=== PATIENT | female | born 1945 | race Caucasian/White ===

== ENCOUNTER 2023-03-23 18:38 | Emergency (ER) | payer MEDICARE, BC, SELFPAY ==
[2023-03-23 18:42] VITALS: BP 174/84
--- NOTE | 2023-03-23 22:33 | ED.GENMED ---
History of Present Illness
General
Chief Complaint: Musculo-Skeletal Complaint
Source: patient and previous hospital records (Most recent hospitalization December 2022 for treatment of viral URI)
Exam Limitations: none
Time Seen by Provider: 03/23/23 22:00
Nursing documentation reviewed up to this point in time: agreed with
Travel History
Have you had any contact with someone who has COVID-19?: No
Do you have any symptoms of coronavirus? Fever > 100 degrees, chills, cough, shortness of breath, sore throat, loss of taste or smell, muscle aches, or headache?: No
History of Present Illness
History of Present Illness:
This is a 77-year-old woman who resides at home with her . She has history of hypertension, rheumatoid arthritis, spina bifida, end-stage renal disease status post renal transplant, neurogenic bladder with chronic indwelling Murphy catheter,
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 She has prior history of left proximal femur fracture requiring left femur
Broad performed by Dr. Kwon 2016. She also has history of left total knee replacement 2009.
She follows sporadically with Dr. Amaral for chronic low back pain and receives intermittent epidural steroid injections with the last approximately August 2022.
She does note some chronic low back pain, chronic left hip pain, requires a walker to ambulate. She also notes Dr. Kwon has noted moderate DJD of left hip and has told her that she will eventually require left hip replacement.
This morning however she awoke with moderate pain about her left knee that has been persistent throughout the day. No insightful injury, no falls nor twisting injury.
Left knee pain radiates up her thigh to her left hip and she has also had twinges of pain down her left lower leg along with mild numbness of her left foot. She denies weakness, no abdominal pain, she denies increase in her chronic low back pain.
Her right lower extremity is chronically shorter than her left lower extremity.
She has been taking Tylenol for pain with last dose at 5 PM. She does note mild improvement in pain with Tylenol.
She had a recent dermatology appointment with squamous cell carcinoma removal right upper arm as well as punch biopsy left medial knee on March 19. Incision site and punch biopsy site has been healing uneventfully.
Past History
Past History
ED Past Medical History: HTN, Renal failure, Other (Osteoma rheumatoid arthritis), Other (Spina bifida) and Other (ESRD s/p renal transplant 1978, Neurogenic bladder, chronic urinary tract infections, pyelonephritis, proteinuria, osteoporosis,
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
ED Past Surgical History: Appendectomy, Bowel resection, Orthopedic (Left knee replacement, Sandeep left femur), Tonsilectomy and Other (Kidney transplant R kidney only)
Social History
Tobacco: Former smoker
Alcohol: Occasional
Drug: None
Personal:
Living: with family
Employment: Not employed
Family History
Family History: Other
Phy Exam
Physical Exam
Physical Exam:
GENERAL: 77-year-old woman appears her stated age, awake and alert, pleasant, appears in no acute distress. Afebrile.
EYE: anicteric
NECK: Supple, nontender, no meningismus, no significant adenopathy.
ENT: oral mucosa is moist. No rhinorrhea.
CARDIAC: Regular rate and rhythm. no murmur.
LUNGS: Clear breath sounds bilaterally, no acute respiratory distress, no wheezes/rales/rhonchi
ABDOMEN: Soft, nondistended, without focal tenderness, no r/g, no cvat. normoactive BS.
BACK: No midline bony tenderness.
NEUROLOGICAL: Alert and oriented x3, no focal neuro deficits. Motor strength is 5/5 bilaterally. Gross sensation is intact.
SKIN: Warm and dry, normal color, mildly candelaria skin of face and upper chest. Dry bandage overlying intact sutured wound right upper arm. There is no erythema nor tenderness. There is a 2 to 3 mm superficial punch biopsy site left medial knee that
has no surrounding erythema, no drainage, no bleeding.
MUSCULOSKELETAL: Right lower extremity shorter than left�chronic and unchanged as per patient. There is moderate palpable effusion anterior and superior of the left knee with moderate tenderness about the left knee. There is no erythema nor
palpable heat. Moderate pain with range of motion of left knee but no crepitus. Minimal tenderness about the left hip with mild/moderate pain with range of motion of the left hip. There is no palpable bony pelvic tenderness. There is mild
nonpitting edema bilateral lower extremities. Mild venous stasis skin thickening with mild chronic appearing erythema bilateral lower extremities without tenderness to the lower legs, no palpable heat. Peripheral pulses are full and equal b/l.
PSYCH: Normal and appropriate interaction.
Course
Orders/Labs/Results
Orders:
Orders
03/23/23 22:30
Acetaminophen [Tylenol] 1,000 mg PO NOW STA
Tramadol HCl [Ultram] 50 mg PO NOW STA
Hip, Left 2-3 Views [CR Hip - LT w/wo Pel 2-3 Vw*] Urgent
Comment:
Reason For Exam: acute on chronic L hip pain
Include a pelvis x-ray?: Yes
Knee, Left 4 or More Views [CR Knee - Left 4 Or More View*] Urgent
Comment:
Reason For Exam: acute L knee pain, swelling
03/23/23 22:31
US Periph Venous LOWER Ext LT Urgent
Comment:
Reason For Exam: LLE pain, swelling
03/24/23 00:03
Maury Wrap Left-Treatment ONCE
Vital Signs
Initial and Last Documented VS:
Initial Vital Signs
Temp Pulse Resp BP Pulse Ox
98.6 F 93 18 174/84 99
03/23/23 18:42 03/23/23 18:42 03/23/23 18:42 03/23/23 18:42 03/23/23 18:42
Last Documented Vital Signs
Temp Pulse Resp BP Pulse Ox
98.6 F 75 16 127/88 100
03/23/23 18:42 03/23/23 23:19 03/23/23 23:19 03/23/23 23:19 03/23/23 23:19
MDM/Problems Addressed
Differential Diagnosis Includes:
Patient has known lumbar DJD/spina bifida, known DJD of left hip as well as history of left femur fracture with sandeep placement 2016, history of left knee DJD status post left total knee replacement 2009.
She presents with atraumatic acute on chronic left hip pain as well as acute left knee pain.
Exam remarkable for moderate effusion left knee without clinical evidence/suspicion for infectious process. There is no erythema, she remains afebrile.
Concern for acute arthritic flare, acute on chronic musculoskeletal low back pain, acute on chronic musculoskeletal left hip pain, left lower extremity sciatica. Concern for flare of rheumatoid arthritis.
With history of chronic kidney disease, renal transplant, chronically maintained on immunosuppressants, prednisone�will avoid NSAIDs.
Will give a dose of Tylenol now and will trial a dose of tramadol for pain.
Will check x-ray left hip, left knee and due to moderate swelling of left knee will check ultrasound left lower extremity assess for potential DVT however no significant calf swelling and no prior history of thromboembolism.
*Radiology
Radiology exam reviewed: preliminary read by ED provider (Left hip and left knee x-rays show metallic fixation of prior left proximal femur shaft fracture as well as left total knee replacement. No evidence of periprosthetic fracture. No evidence
of hardware loosening.) and radiology read reviewed (Venous Doppler left lower extremity negative for DVT.)
*Pulse Oximetry
Patient hypoxic: no
*Critical Care Note
Total Time (30-74mins, 75-104mins- exclusive of procedures): Not Applicable
Update Note
Update Note:
Patient feeling improved after Tylenol and tramadol.
She is now able to flex her hip and knee more freely.
X-rays show metallic hardware but no evidence of periprosthetic fracture nor loosening of hardware.
Ultrasound is negative for DVT.
Will add Maury wrap to left knee and recommend ice versus heat to her knee.
Recommend prompt follow-up with orthopedics Dr. Kwon as well as follow-up with Dr. Amaral. Patient now does admit that she was hoping to hold off with follow-up with Dr. Amaral until June due to recent hospitalization in December, she was hoping
to avoid 'MRSA protocol' prior to epidural steroid injection which apparently entails nasal MRSA swab, mupirocin ointment to her nostrils as well as whole body antiseptic scrub which she states generally results in a skin rash.
I have offered a limited prescription for tramadol which she can take for moderate pain along with continued Tylenol.
ED Attending Note
-
Portions of this chart may have been created with voice recognition software.� Occasional wrong word or��sound alike� substitutions may have occurred due to the inherent limitations of voice recognition software.
Discharge Plan
Departure
Patient Disposition: Home (Routine Discharge)
Date of Disposition: 03/24/23
Time of Disposition: 00:15
Patient with high blood pressure during this ER visit?: No
Condition: Good
Discharge Problem:
acute on chronic left hip pain, Acute pain of left knee, Acute exacerbation of chronic low back pain
Instructions: Low Back Pain (DC), Knee Pain (DC)
Prescriptions:
New
tramadol 25 mg tablet
25 mg PO TIDPRN PRN (Reason: Pain) Qty: 14 0RF
No Action
prednisone 10 MG tablet
10 mg PO Q48H
azathioprine 50 MG tablet
50 mg PO DAILY
cyanocobalamin (vitamin B-12) 1,000 MCG tablet
500 mcg PO DAILY
lisinopril 5 MG tablet
5 mg PO HS
sennosides-docusate sodium [Colace 2-In-1] 8.6-50 mg Tablet
1 tab-cap PO Q72H
fluocinonide 0.05 % Ointment
1 applic TOPICAL BID
acetaminophen [Tylenol Extra Strength] 500 mg Tablet
1,000 mg PO Q6H PRN (Reason: mild pain/CRESPO/temp>100.4F)
methenamine hippurate 1 gram Tablet
1 g PO HS
bisacodyl 5 mg Tablet
10 mg PO Q72H
cholecalciferol (vitamin D3) 25 mcg (1,000 unit) Tablet
25 mcg PO DAILY
Referrals:
Carlos Kwon MD [Active] - Call in 1-3 days for appt
Mandeep Amaral DO [Non-Admitting Privileges] - Call in 1-3 days for appt
Interventions
Interventions:
*Risk Screen - Suicide Last Done: 03/23/23 18:42
*General Assessment Last Done: 03/23/23 18:42
*Neglect/Abuse Screening Last Done: 03/23/23 18:42
ED- Fall Risk Assessment Last Done: 03/23/23 23:27
*ED COVID-19 Vaccine History Last Done: 03/23/23 18:42
ED-Musculoskeletal Assessment Last Done: 03/23/23 23:27
[2023-03-23 23:12] VITALS: BMI 36.8
[2023-03-23] MEDS: TYLENOL 1000 MG PO (23:12)
[2023-03-23] MEDS: ULTRAM 50 MG PO (23:13)
[2023-03-23 23:17] VITALS: BP 127/88
[2023-03-23 23:19] VITALS: BP 127/88
[2023-03-24] VITALS: BP 137/59
--- NOTE | 2023-03-24 | EDRN ---
Dr Sevilla updated patient on results and aware she will go home
== END 2023-03-24 00:48 | disposition home or self-care (01) ==
LOC: EMR 18:38
PROVIDERS: EMERGENCY PHYSICIAN Emergency Medicine; FAMILY PHYSICIAN Internal Medicine
DX: M25.552 Pain in left hip (principal); M25.562 Pain in left knee; G89.29 Other chronic pain; M54.50 Low back pain, unspecified; M79.605 Pain in left leg; I12.0 Hypertensive chronic kidney disease with stage 5 chronic kidney disease or end stage renal disease; N18.6 End stage renal disease; Z87.891 Personal history of nicotine dependence; Z94.0 Kidney transplant status
CPT/HCPCS: 73502; 73564; 93971; 99284

== ENCOUNTER → 2023-06-04 11:16 | Outpatient (REF) | payer MEDICARE, BC, SELFPAY | LOC: WDC 11:16 | PROVIDERS: ATTENDING PHYSICIAN Internal Medicine | DX: Z12.31 Encounter for screening mammogram for malignant neoplasm of breast (principal); M81.0 Age-related osteoporosis without current pathological fracture; Z00.00 Encounter for general adult medical examination without abnormal findings | CPT/HCPCS: 77063; 77067; 77080 ==

== ENCOUNTER → 2023-09-09 09:28 | Outpatient (REF) | payer MEDICARE, BC, SELFPAY ==
[2023-09-09 10:55] LABS: % Basophils 0.7 % (0-2); % Eosinophils 1.8 % (0-6); % Immature Granulocytes 0.9 % (0-0.5); % Lymphocytes 21.7 % (20.5-51.1); % Monocytes 7.1 % (1.7-9.3); % Neutrophils 67.8 % (42.2-75.2); Absolute Basophils 0.1 10^3/uL (0-0.2); Absolute Eosinophils 0.2 10^3/uL (0-0.7); Absolute Immature Granulocytes 0.1 10^3/uL (0-0.05); Absolute Lymphocytes 1.9 10^3/uL (1.2-3.4); Absolute Monocytes 0.6 10^3/uL (0.1-0.6); Absolute Neutrophils 5.8 10^3/uL (1.4-6.5); Hematocrit 36.8 % (37.0-47.0); Hemoglobin 12.1 g/dL (12.0-16.0); Mean Corp Hgb Conc. 32.9 g/dL (33.0-37.0); Mean Corpuscular Hgb 32.9 pg (27.0-31.0); Mean Platelet Volume 11.4 fL (7.4-10.4); Nucleated Red Blood Cells % 0 %; Platelet Count 235 10^3/uL (130-400); Red Blood Cell Count 3.68 10^6/uL (4.20-5.40); Red Cell Dist. Width 13.7 % (11.5-14.5); White Blood Cell Count 8.5 10^3/uL (4.8-10.8)
[2023-09-09 11:12] LABS: Protein/creatinine Ratio 2.4; Urine Protein 109 mg/dl
[2023-09-09 11:13] LABS: Vitamin D, 25-OH*** 55.7 ng/mL (30-80)
[2023-09-09 11:14] LABS: Intact PTH 87.6 pg/ml (13.6-85.8)
[2023-09-09 11:27] LABS: TSH 1.76 uIU/ml (0.47-4.68)
[2023-09-09 11:49] LABS: ALT (SGPT) 15 U/L (0-35); Albumin 4.1 g/dl (3.5-5.0); Alkaline Phosphatase 71 U/L (38-126); Blood Urea Nitrogen 27 mg/dl (7-17); Carbon Dioxide 19 mmol/L (22-30); Glucose 91 mg/dl (70-99); Potassium 4.8 mmol/L (3.5-5.1); Sodium 139 mmol/L (135-145); Total Bilirubin 0.6 mg/dl (0.2-1.3); Total Cholesterol 194 mg/dl (50-199); Total Protein 6.5 g/dl (6.3-8.2); Triglyceride 83 mg/dl (10-149); Very Low Density Lipoprotein 16 mg/dl (0-30); eGFR 42.35
[2023-09-09 11:58] LABS: AST (SGOT) 22 U/L (14-36); Calcium 9.4 mg/dl (8.4-10.2); Chloride 109 mmol/L (98-107); HDL Cholesterol 68 mg/dl; LDL Cholesterol, Calculated 110 mg/dl
== END ==
LOC: REG 09:28
PROVIDERS: ATTENDING PHYSICIAN Specialist; FAMILY PHYSICIAN Internal Medicine
DX: Z00.00 Encounter for general adult medical examination without abnormal findings (principal); R80.1 Persistent proteinuria, unspecified; I10 Essential (primary) hypertension; R80.9 Proteinuria, unspecified; N25.81 Secondary hyperparathyroidism of renal origin
CPT/HCPCS: 36415; 80053; 80061; 82306; 82570; 83521; 83970; 84156; 84443; 85025; 86335

== ENCOUNTER → 2023-10-07 08:58 | Outpatient (REF) | payer MEDICARE, BC, SELFPAY ==
[2023-10-09 22:09] LABS: 24 Hour Urine Total Volume Random mL; Urine Collection Length Random hr; Urine Free Kappa Light Chains 281.97 mg/L (0.00-32.90); Urine Free Lambda Light Chains 11.98 mg/L (0.00-3.79)
== END ==
LOC: REG 08:58
PROVIDERS: ATTENDING PHYSICIAN Specialist; FAMILY PHYSICIAN Internal Medicine
DX: R33.8 Other retention of urine (principal); Z94.0 Kidney transplant status; N39.0 Urinary tract infection, site not specified; I10 Essential (primary) hypertension
CPT/HCPCS: 36415; 82784; 83521; 84155; 84156; 84165; 86334; 86335

== ENCOUNTER 2024-01-08 21:58 | Inpatient (IN) | payer MEDICARE, BC, SELFPAY ==
[2024-01-08 18:46] VITALS: BP 138/68
[2024-01-08 19:49] LABS: % Basophils 0.4 % (0-2); % Immature Granulocytes 1.2 % (0-0.5); % Lymphocytes 4.3 % (20.5-51.1); % Monocytes 3.2 % (1.7-9.3); % Neutrophils 90.9 % (42.2-75.2); Absolute Immature Granulocytes 0.1 10^3/uL (0-0.05); Absolute Lymphocytes 0.3 10^3/uL (1.2-3.4); Absolute Monocytes 0.2 10^3/uL (0.1-0.6); Absolute Neutrophils 6.8 10^3/uL (1.4-6.5); Mean Corp Hgb Conc. 33.3 g/dL (33.0-37.0); Mean Corpuscular Hgb 32.7 pg (27.0-31.0); Mean Corpuscular Volume 98.1 fL (81.0-99.0); Mean Platelet Volume 10.3 fL (7.4-10.4); Nucleated Red Blood Cells % 0 %; Platelet Count 236 10^3/uL (130-400); Red Blood Cell Count 3.67 10^6/uL (4.20-5.40); Red Cell Dist. Width 13.9 % (11.5-14.5); White Blood Cell Count 7.5 10^3/uL (4.8-10.8)
[2024-01-08 20:02] LABS: ALT (SGPT) 21 U/L (0-35); AST (SGOT) 29 U/L (14-36); Albumin 4.1 g/dl (3.5-5.0); Alkaline Phosphatase 64 U/L (38-126); Blood Urea Nitrogen 31 mg/dl (7-17); Calcium 8.4 mg/dl (8.4-10.2); Carbon Dioxide 18 mmol/L (22-30); Chloride 102 mmol/L (98-107); Glucose 160 mg/dl (70-99); Lactic Acid 1.1 mmol/L (0.7-2.0); Potassium 4.6 mmol/L (3.5-5.1); Sodium 136 mmol/L (135-145); Total Bilirubin 0.8 mg/dl (0.2-1.3); Total Protein 6.6 g/dl (6.3-8.2); eGFR 35.67
[2024-01-08 20:10] LABS: Urine Albumin Trace (Neg - Trace); Urine Bilirubin Negative (Negative); Urine Character Slightly Cloudy (Clear); Urine Color Yellow; Urine Glucose Negative (Negative); Urine Ketone Negative (Negative); Urine Leukocyte 2+ (Negative); Urine Nitrite Positive (Negative); Urine Occult Blood 1+ (Negative); Urine Specific Gravity 1.005 (<1.030); Urine Urobilinogen Negative (Neg - 1+)
[2024-01-08 20:12] LABS: Urine Bacteria Moderate (Negative); Urine Red Blood Cell 0-2 /HPF (0-2); Urine Squamous Cell 0-2 /LPF (Few); Urine White Cell >100 /HPF (0-5)
--- NOTE | 2024-01-08 20:39 | ED.GENMED ---
History of Present Illness
General
Chief Complaint: Urinary Symptoms
Source: patient
Time Seen by Provider: 01/08/24 19:01
History of Present Illness
History of Present Illness:
78-year-old female with past medical history of spina bifida at resulting in complications from her surgery with left her with a neurogenic bladder, has a chronic indwelling Murphy catheter and states that she gets this changed every 5 weeks,
last changed 2 weeks ago but over the last 48 hours has started to feel some suprapubic discomfort/pressure and as if she needs to continuously urinate, last night had tactile fever, chills and rigors, this afternoon developed the same which is what
prompted her to come to the ER this evening for further evaluate. Last dose of Tylenol was around 1 PM. Patient has a history of kidney transplant and states that she has had multidrug-resistant urinary tract infections in the past that have
required IV antibiotics for treatment. Also of note, patient states that for the last few days she has had a nonproductive cough and discomfort at the lower scapular region but states no shortness of breath, chest pain so or any other concerns.
Past History
Past History
ED Past Medical History: CAD, HTN, Renal failure, Other (Osteoma rheumatoid arthritis), Other (Spina bifida) and Other (ESRD s/p renal transplant 1979, Neurogenic bladder, chronic urinary tract infections, pyelonephritis, proteinuria, osteoporosis,
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
ED Past Surgical History: Appendectomy, Bowel resection, Orthopedic (Left knee replacement, Sandeep left femur), Tonsilectomy and Other (Kidney transplant R kidney only)
Social History
Tobacco: Former smoker
Alcohol: Occasional
Drug: None
Personal:
Living: with family
Employment: Not employed
Family History
Family History: Other
Review of Systems
Review of Systems
All Other Systems: ROS reviewed and negative except as documented in HPI and ROS
Phy Exam
Physical Exam
Physical Exam:
GENERAL: Alert , in no apparent distress
HEAD: NCAT
EYE: conjunctiva clear
NECK: Supple
ENT: o/p clr, mmm.
CARDIAC: Regular rate and rhythm
LUNGS: Clear breath sounds bilaterally, no acute respiratory distress, no wheezes/rales/rhonchi
ABDOMEN: soft, non-tender, non-distended
NEUROLOGICAL: Alert and oriented
SKIN: Warm and dry, skin intact.
MUSCULOSKELETAL: well perfused. arthritic changes to bilateral hands
PSYCH: Normal and appropriate interaction.
Scores
Heart Failure Risk
Heart Failure Risk Score: Not Applicable
Heart Score for Chest Pain Patients
STEMI patient?: Not applicable
Withdrawal Assessment of Alcohol
Withdrawal Assessment Completed?: Not applicable
Course
Orders/Labs/Results
Orders:
Orders
01/08/24 19:26
Complete Blood Count/With Diff Urgent
Comprehensive Metabolic Panel Urgent
Lactic Acid Q4H
Comment: CANCEL 2nd LACTIC ACID IF 1st LACTIC ACID IS LESS THAN 2
Blood Culture Q30M
[facility] Source: Blood/Venous
Specimen Description:
Blood Culture Q30M
[facility] Source: Blood/Venous
Specimen Description:
01/08/24 19:43
Urinalysis Reflex To Culture Urgent
Date Specimen was Collected: 01/08/24
Time Specimen was Collected: 19:41
Urine Microscopic Reflex Cult Urgent
Urine Culture Urgent
[facility] Source: U
Specimen Description:
Date Specimen was Collected: 01/08/24
Time Specimen was Collected: 19:41
01/08/24 20:06
COVID-19 Antigen Urgent
Source: Nasal Swab
Influenza A+B Rapid Molecular Urgent
[facility] Source: Nasal Swab
Specimen Description:
CR Chest - 2 Views Urgent
Comment:
Reason For Exam: cough, subjective fever
01/08/24 20:38
Cefepime HCl [Maxipime] 2,000 mg IV NOW STA
Abnormal Lab Results
01/08/24 01/08/24
19:26 19:43
RBC 3.67 L 10^6/uL
(4.20-5.40)
Hct 36.0 L %
(37.0-47.0)
MCH 32.7 H pg
(27.0-31.0)
Abs Immat Gran (auto) 0.1 H 10^3/uL
(0-0.05)
Absolute Neuts (auto) 6.8 H 10^3/uL
(1.4-6.5)
Absolute Lymphs (auto) 0.3 L 10^3/uL
(1.2-3.4)
Immature Gran % 1.2 H %
(0-0.5)
Neutrophils % 90.9 H %
(42.2-75.2)
Lymphocytes % 4.3 L %
(20.5-51.1)
Carbon Dioxide 18 L mmol/L
(22-30)
BUN 31 H mg/dl
(7-17)
Creatinine 1.5 H mg/dL
(0.6-1.0)
Glucose 160 H mg/dl
(70-99)
Ur Occult Blood Reflex 1+ A
(Negative)
Urine Nitrite (Reflex) Positive A
(Negative)
Leukocyte Esterase Rfl 2+ A
(Negative)
Urine WBC (Reflex) >100 A /HPF
(0-5)
Urine Bacteria (Reflex) Moderate A
(Negative)
01/08/24 19:26
01/08/24 19:26
Vital Signs
Initial and Last Documented VS:
Initial Vital Signs
Temp Pulse Resp BP Pulse Ox
98.2 F 89 16 138/68 96
01/08/24 18:46 01/08/24 18:46 01/08/24 18:46 01/08/24 18:46 01/08/24 18:46
Last Documented Vital Signs
Temp Pulse Resp BP Pulse Ox
98.2 F 89 16 138/68 96
01/08/24 18:46 01/08/24 18:46 01/08/24 18:46 01/08/24 18:46 01/08/24 18:46
MDM/Problems Addressed
Differential Diagnosis Includes:
Pneumonia, UTI, pyelonephritis, COVID/flu or other viral etiology
MDM/Problems Addressed:
78-year-old female presenting the emergency department with main concern for possible urinary tract infection. Has had multiple drug-resistant UTIs in the past requiring admission and IV antibiotics. Patient is also noting cough over the last few
days. Will check labs, urine, chest x-ray, COVID and flu testing. Disposition pending
Chronic conditions affecting care: Immunosuppressed and Kidney disease
Acute Exacerbation and/or Progression of Chronic Illness: Immunosuppressed
*Radiology
Radiology exam reviewed: radiology read reviewed
*Pulse Oximetry
Patient hypoxic: no
*Rn Maternity Interpretation
Rate: normal
Rhythm: sinus
*Critical Care Note
Total Time (30-74mins, 75-104mins- exclusive of procedures): Not Applicable
Data Reviewed
Review of Other/Old Records Reveals: Labs and Records
Patient Management
Discussion with other providers: Hospitalist and [facility]
Escalation/DeEscalation of care consider admission/obs:
Patient's chest x-ray read as left midlung pneumonia. Urine is nitrite positive and greater than 100 WBCs. Certainly possible patient colonizing due to chronic indwelling Murphy catheter but given her history will cover with Maxipime based off of
previous culture reports. Hospitalist team notified and accepts for continued evaluation and treatment. Urology team was also notified and can consult as needed.
ED Attending Note
-
Portions of this chart may have been created with voice recognition software.� Occasional wrong word or��sound alike� substitutions may have occurred due to the inherent limitations of voice recognition software.
Discharge Plan
Departure
Patient Disposition: Admit
Date of Disposition: 01/08/24
Time of Disposition: 20:39
Presentation/result/management discussed w/ accepting MD/DO: Hospitalist
Discharge Problem:
UTI (urinary tract infection), CKD (chronic kidney disease)
Prescriptions:
No Action
prednisone 10 MG tablet
10 mg PO Q48H
azathioprine 50 MG tablet
50 mg PO DAILY
cyanocobalamin (vitamin B-12) 1,000 MCG tablet
500 mcg PO DAILY
lisinopril 5 MG tablet
5 mg PO HS
sennosides-docusate sodium [Colace 2-In-1] 8.6-50 mg Tablet
1 tab-cap PO Q72H
acetaminophen [Tylenol Extra Strength] 500 mg Tablet
1,000 mg PO Q6HPRN PRN (Reason: mild pain/CRESPO/temp>100.4F)
methenamine hippurate 1 gram Tablet
1 g PO HS
bisacodyl 5 mg Tablet
10 mg PO Q72H
cholecalciferol (vitamin D3) 25 mcg (1,000 unit) Tablet
25 mcg PO DAILY
Ocusoft
1 spray BOTH EYES BID
Referrals:
Denisse Salmon MD [Family Provider] -
Interventions
Interventions:
*Risk Screen - Suicide Last Done: 01/08/24 18:46
*Neglect/Abuse Screening Last Done: 01/08/24 18:46
Discharge Date and Time
Print Language: CYMRAES
--- NOTE | 2024-01-08 20:45 | HPS.HSE ---
Family Physician
-
Family Physician: Denisse Salmon
Chief Complaint
-
Urinary symptoms
History of Present Illness
Patient is a 78-year-old female with past medical history significant for neurogenic bladder, chronic kidney disease, kidney transplant, benign hypertension, rheumatoid arthritis, and spina bifida. Patient presented to [facility] for evaluation
of fever, rigors and bladder fullness feeling over past 24-hours. Patient states she has aching in the right flank area, which is typical when she has a UTI. Patient states she is having sensation she needs to urinate despite chronic Grady in place
and draining like normal. She denies cough, shortness of breath, chest pain, constipation, or diarrhea.
Medical History
Past Medical History
Past Medical History: Reports Other
Additional Past Medical History:
neurogenic bladder
chronic kidney disease
kidney transplant
benign hypertension
rheumatoid arthritis
Recurrent squamous cell skin cancer
Spina bifida
Past Surgical History: Reports Other
Additional Past Surgical History:
Living related renal transplant right only(1978)
parathyroidectomy
tonsillectomy
appendectomy
spinal surgery
Multiple mohs procedures
Social History
Tobacco: Former Smoker (quit 20 years ago)
Alcohol: Occasional
Drug: None
Personal:
Living: With Family
Employment: Retired
Family History
Family History: Not pertinent
Allergies / Home Medications
Allergies reflects when Allergies were last updated in [facility].
Home Medications with original date entered in [facility]
Allergy/Medication List:
Allergies
Allergy/AdvReac Type Severity Reaction Status Date / Time
alendronate sodium Allergy constipatio Verified 03/23/23 18:44
[From Fosamax] n
aspirin [Aspirin] Allergy contraindicated Verified 03/23/23 18:44
with
transplant
meds
azithromycin [From Zithromax] Allergy contraindicated Verified 03/23/23 18:44
with
transplant
meds
aztreonam [From Azactam] Allergy Swelling/RE Verified 03/23/23 18:44
DNESS/FLUSH
ING
doxycycline Allergy Hives Verified 03/23/23 18:44
influenza virus vaccine, Allergy high Verified 03/23/23 18:44
specific fever,ache
[Influenza Virus all over
Vacc,Specific] pt states
doesnt
want it
again
levofloxacin [From Levaquin] Allergy Vomiting Verified 03/23/23 18:44
NSAIDS (Non-Steroidal Allergy contraindicated Verified 03/23/23 18:44
Anti-Inflamma with
[Nsaids] transplant
meds
Penicillins Allergy has Verified 03/23/23 18:44
tolerated
cefepime,
ceftriaxone,
cephalexin
tetracycline [Tetracycline] Allergy contraindicated Verified 03/23/23 18:44
with
transplant
meds
Home Medications
prednisone 10 mg tablet 10 mg PO Q48H Transplant 08/23/12
azathioprine 50 mg tablet 50 mg PO DAILY rheumatoid arthritis 12/28/12
cyanocobalamin (vitamin B-12) 1,000 mcg tablet 500 mcg PO DAILY Supplement 07/07/17
lisinopril 5 mg tablet 5 mg PO HS Blood pressure 07/07/17
acetaminophen 500 mg tablet (Tylenol Extra Strength) 1,000 mg PO Q6H PRN mild pain/CRESPO/temp>100.4F 01/10/23
bisacodyl 5 mg tablet 10 mg PO Q72H 01/10/23
cholecalciferol (vitamin D3) 25 mcg (1,000 unit) tablet 25 mcg PO DAILY 01/10/23
fluocinonide 0.05 % topical ointment 1 applic topical BID apply to right hand surgical sites 01/10/23
methenamine hippurate 1 gram tablet 1 g PO HS 01/10/23
sennosides 8.6 mg-docusate sodium 50 mg tablet (Colace 2-In-1) 1 tab-cap PO Q72H 01/10/23
tramadol 25 mg tablet 25 mg PO TIDPRN PRN Pain #14 tabs 03/24/23
Review of Systems
-
History Source: Patient
Constitutional: Reports Fever and Chills
EENT: Reports No Symptoms
Respiratory: Reports No Symptoms
Cardiac: Reports No Symptoms
Abdomen/GI: Reports No Symptoms
: Reports Flank Pain, Urgency and Other (discomfort at transplant pouch and sensation of needing to urinate despite Grady in place and draining)
Musculoskeletal: Reports No Symptoms
Skin: Reports No Symptoms
Neurological: Reports No Symptoms
Endocrine: Reports No Symptoms
Hematologic/Lymphatic: Reports No Symptoms
Psych: Reports No Symptoms
Physical Exam
Vital Signs
Vital Signs
Temp Pulse Resp BP Pulse Ox
98.2 F 89 16 138/68 96
01/08/24 18:46 01/08/24 18:46 01/08/24 18:46 01/08/24 18:46 01/08/24 18:46
Physical Exam
General: Well Developed, Well Nourished, No Apparent Distress, Comfortable and Conversant
HEENT: NormoCephalic, Moist mucous membranes, Atraumatic, Good Dentition, PERRLA, [place] Conjunctivae, Nose Appears Normal and Ears Appear Normal
Respiratory: Clear and Non Labored Respirations; No Wheezes, Rales, Rhonchi or Crackles
Cardiac: S1/S2 and Regular Rhythm; No Murmur, Rub or Gallop
Breast: Deferred by me
GI: Soft, Non Tender, Non Distended and Normal Bowel Sounds; No Organomegaly
Rectal: Deferred by Provider
Genito-urinary: Grady and Other (right flank, RLQ discomfort at transplant pouch site)
Musculoskeletal: No Clubbing, No Cyanosis and No Edema
Skin: Warm, Dry and IV/Catheter Site; No Rash
Neuro: Awake, Alert, AO x 3 and Nonfocal/grossly intact
Hematologic/Lymphatic: No Lymphadenopathy
Psych: Calm and Intact Judgment/Insight
Laboratory Results
-
01/08/24 19:26
01/08/24
Laboratory Results
Lactic Acid 1.1 mmol/L (0.7-2.0) 01/08/24:
Total Bilirubin 0.8 mg/dl (0.2-1.3) 01/08/24:
AST 29 U/L (14-36) 01/08/24:
ALT 21 U/L (0-35) 01/08/24
Alkaline Phosphatase 64 U/L (38-126) 01/08/24:
Data Reviewed
-
Lab Data: Labs Reviewed by me (BUN 31, Creat 1.5)
Impression/Plan
-
IMPRESSION/PLAN:
#UTI
#neurogenic bladder
- WBC 7.5
- UA +UTI
- Admit to M/S
- Consult ID
- IVF
#acute on chronic kidney disease (CKD3)
#kidney transplant
#Chronic indwelling catheter
- creat 1.8, mildly elevated from baseline
- last Grady change Dec in office (normal schedule every 5 weeks)
- continue methenamine
- continue prednisone
- hold lisinopril and monitor Creat
#benign hypertension
- hold lisinopril, trend Creat
#rheumatoid arthritis
- continue azathioprine
#Recurrent squamous cell skin cancer
- s/p multiple MOHS procedures
#obesity from excessive calories
- effects all aspects of care
#Spina bifida
DNR
DVT Px:
--- NOTE | 2024-01-08 21:11 | W.PN.UPDATE ---
Update Note
Progress Note Update
This note serves as an addendum to the H&P by operative supervisor NISH Tawanna Issa
HPI
78F HX ESRD s/p renal transplant, CKD3b, neurogenic bladder, UTI, pyelo, osteo, chronic indwelling murphy ,HTN, RA , RA, spina fibida
seen at ER:
- Foleys Cath was chaged on 01/06/24 due to leakage
- possibel UTI ?? IV ABx ??
- report tactile fever with chills & rigors last night
- Afebrile here and normal WBC at ER
- Known to Luna Blanchard on-call is aware.
- Previous UCx show MDR Seratia marcescens (04/16/22) sen to Cefepine, Ertepenam amd Meropenam, Zosyn
PHX
Reviewed VS:
PE
Gen: NAD, not toxic
HEENT: anicteric
Neck: supple. No JVD.
Lungs: CTA
Cor: RRR S1 S2
Abdomen: soft, slight tenerness on Rt flank , KTP pounch on Rt LQ
SPEECH LANGUAGE THERAPIST: AA O3
MS: karlos nannette
Psych: appropriate
Data
Laboratory Tests
09/09/23 01/08/24 01/08/24
09:50 19:26 19:43
Creatinine 1.5 H
eGFR 42.35 35.67
Urine Nitrite (Reflex) Positive A
Leukocyte Esterase Rfl 2+ A
Urine WBC (Reflex) >100 A
Ur Squamous Epith Cells 0-2
Urine Bacteria (Reflex) Moderate A
Last hospitalist admission: 01/11/24 - 01/12/23
DX: Viral bronchitis
ASSESSMENT & PLAN
Asymptomatic significant pyuria -in the setting of chronic Murphy catheter.
No urinary symptoms. Clinically doubt UTI
Hemodynamically stable
HX Chronic indwelling F cath due to neurogenic bladder
- Murphy Cath : last changed on Thu01/06/24 due to leakage. Gets changed every 5 weeks ( known to [facility])
- First dose of IV Cefepime at ER
- IVF
- f/u BCx, UCx
- Hold further IV ABx till seen by ID evaluation
- ID consult in AM till
Anemia of chronic disease
-hgb 12
-no active bleeding
- f/u Hgb
Element of REUBEN - current Cr 1.8
Underlying CKD3b - baslien Cr mid 1s
Renal Transplant Status
Chronic Immunosuppression/Chronic immunosuppressed state secondary to transplant status
- REGENERATION OPERATOR Imuran and prednisone continued
- Hold Lisinopril and observe Cr trend Cr
Present on Admission
Neurogenic Bladder / Chronic Indwelling Murphy/Non-Utilized Ileal Conduit / Urostomy
-New Murphy cath was changed on Thu01/06/24
-Murphy gets changed every 5 weeks
Benign hypertension
- Hold Lisinopril and observe Cr
Spina Bifida
Obesity due to excess calories
DVT Px: SCD
DNR per patient
IP MS
[2024-01-08] MEDS: MAXIPIME 2000 MG IV (21:38)
[2024-01-08 21:39] VITALS: BP 110/57
[2024-01-08 21:40] VITALS: BMI 24.2
[2024-01-08 21:59] LABS: COVID-19 Antigen Negative (Negative)
[2024-01-08 23:10] VITALS: BP 116/58; BMI 23.7
[2024-01-08] MEDS: HIPREX 1 GRAM PO (23:13)
[2024-01-08] MEDS: NSS 1000 IV (23:13)
[2024-01-08] MEDS: TYLENOL 650 MG PO (23:14)
--- NOTE | 2024-01-08 23:48 | PTCARENOTE ---
Pt arrived from the ED via stretcher. Patient pulled over onto the bed by staff. AAOx3, VSS. Patient arrived with murphy leg bag draining clear yellow urine with some sediment. Pt states she usually uses a walker to ambulate however, does not have
her shoes to help her walk. Pt oriented to the room, updated on plan of care, call salas is within reach.
[2024-01-08 23:54] VITALS: BP 116/58
[2024-01-09 06:10] LABS: Hematocrit 30.8 % (37.0-47.0); Hemoglobin 10.4 g/dL (12.0-16.0); Mean Corp Hgb Conc. 33.8 g/dL (33.0-37.0); Mean Corpuscular Volume 100.7 fL (81.0-99.0); Mean Platelet Volume 10.5 fL (7.4-10.4); Platelet Count 205 10^3/uL (130-400); Red Blood Cell Count 3.06 10^6/uL (4.20-5.40); Red Cell Dist. Width 13.9 % (11.5-14.5); White Blood Cell Count 7.5 10^3/uL (4.8-10.8)
[2024-01-09 06:30] LABS: Blood Urea Nitrogen 32 mg/dl (7-17); Carbon Dioxide 21 mmol/L (22-30); Chloride 107 mmol/L (98-107); Estimated Creatinine Clearance 32 ml/min; Glucose 84 mg/dl (70-99); Potassium 4.6 mmol/L (3.5-5.1); Sodium 138 mmol/L (135-145); eGFR 35.67
[2024-01-09 07:24] VITALS: BP 124/52
--- NOTE | 2024-01-09 07:52 | W.PN.HOSP.TC ---
Today's Communication/Plan
-
Continue Cefepime
Monitor renal function
Continue murphy, monitor urine output, bladder scans
Assessment / Plan
Assessment / Plan
Physical Exam
General: Not in acute distress
HEENT: Normocephalic
Respiratory: Clear to Auscultation Bilaterally
Cardiac: S1/S2 and Regular Rhythm
GI: Soft, Non Tender, Non Distended and Normal Bowel Sounds
Genito-urinary: Murphy Catheter present
Musculoskeletal: No Cyanosis and No Edema
Skin: Warm, Dry
Neuro: Awake, Alert, AO x 3 and Nonfocal/grossly intact
Psych: Calm and Intact Judgment/Insight
Assessment/Plan
78-year-old female with past medical history significant for neurogenic bladder, chronic kidney disease, kidney transplant, benign hypertension, rheumatoid arthritis, and spina bifida. Patient presented to [facility] for evaluation of fever,
rigors and bladder fullness feeling over past 24-hours. Patient states she has aching in the right flank area, which is typical when she has a UTI. Patient states she is having sensation she needs to urinate despite chronic Murphy in place and
draining like normal. She denies cough, shortness of breath, chest pain, constipation, or diarrhea.
#Presentation with kidney and ureter ache (not pain), chills and rigors, subjective fever
#Concern for Acute Kidney Injury on Chronic Kidney Disease (CKD3)
#Chronic indwelling catheter
#Suspected complicated urinary tract infection
#History of Urinary Retention
#Neurogenic Bladder from surgical complications from spina bifida surgery
#Multiple antibiotic intolerances
#History of multidrug-resistant urinary tract infections
#Immunosuppressed State
- Creat 1.5, mildly elevated from baseline -- discussed with on-call decal decorator on 01/09/24 who said it is around baseline
- Last Murphy change Dec in office (normal schedule every 5 weeks) -- got it changed early (prior to the Jan 05 change it was 2 weeks prior to that)
- Hold methenamine while patient is getting antibiotics
- Continue Prednisone 10 mg Q48H
- Continue home Imuran 50 mg daily
- Hold lisinopril for now and monitor creatinine
- Patient sees Dr. Davies outpatient, I spoke to on-call decal decorator here: she recommended to continue antibiotics, urology look at Murphy catheter, monitor BMP, no need for nephrology consult for now
based on my discussion with her
- Patient sees Dr. Ha of urology outpatient -- consulted urology, appreciate recommendations: Murphy Catheter to be changed on 01/10/24 as per urology
- Patient also was seeing division chief Dr. Wallace outpatient because nephrology referred her to them -- discussed case with Dr. Quick on 01/09/24 and he said that based on outpatient records,
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 Nothing really to add now from hematology standpoint while patient is inpatient for REUBEN and PNA. She has follow up with hematology on 01/27/24 and
then sees hematology annually only.
#Kidney Transplant
#History of Bilateral nephrectomies
#Acquired Absence of Kidney
#CKD Stage 3
- Continue Prednisone 10 mg Q48H
- Continue home Imuran 50 mg daily
- Monitor BMP
#Cough
#Left upper Back pain prior to arrival
#Fever, Chills, Rigor suspected secondary to pneumonia and UTI
-Pneumonia on the lateral left midlung, as per radiologist's report
-Appreciate ID
#benign hypertension
- hold lisinopril, trend Creat
#CAD history?
#rheumatoid arthritis
- continue azathioprine
#Recurrent squamous cell skin cancer
- s/p multiple MOHS procedures
#obesity from excessive calories
- effects all aspects of care
#Osteoporosis
#Status post subtotal parathyroidectomy?
#Secondary renal hyperparathyroidism?
#Spina bifida of lumbar region without hydrocephalus
#Myelomeningocele
#Leg length discrepancy
#Left femur ORIF
#L TKR
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
#Appendectomy
Code Status: DNR
DVT Prophylaxis: Heparin subq
Anticipated Discharge: > 48 hours
Subjective/Interval History
-
Date of Service: January 09, 2024
Patient was seen and examined. She reported some urinary pressure and discomfort around the transplanted kidney, as well as come cough, all of which she has had for at least a few days.
Objective Data
-
Labs:
Laboratory Results
01/08/24 01/09/24
19:26 05:40
WBC 7.5
Hgb 10.4 L
Hct 30.8 L
Plt Count 205
Sodium 136 138
Potassium 4.6 4.6
Chloride 102 107
Carbon Dioxide 18 L 21 L
BUN 31 H 32 H
Creatinine 1.5 H 1.5 H
Glucose 160 H 84
Calcium 8.4 8.0 L
Total Bilirubin 0.8
AST 29
ALT 21
Alkaline Phosphatase 64
Vital Signs:
Vital Signs
Temp Pulse Resp BP Pulse Ox
98.0 F 77 18 116/58 94
01/08/24 23:54 01/08/24 23:54 01/08/24 23:54 01/08/24 23:54 01/08/24 23:54
I&O
01/08/24 01/09/24 01/10/24
06:59 06:59 06:59
Intake Total 960 / 960
Output Total 900 / 900
Balance 60 / 60
[2024-01-09] MEDS: IMURAN 50 MG PO (10:00)
[2024-01-09] MEDS: VITAMIN B-12 500 MCG PO (10:00)
[2024-01-09] MEDS: VITAMIN D3 (cholecalciferol) 25 MCG PO (10:00)
--- NOTE | 2024-01-09 12:30 | W.PN.URO.CBU ---
Today's Communication / Plan
-
change murphy tomorrow
Assessment / Plan
-
uro sepsis christina returning to baseline will change murphy tomorow if stable
Diagnosis
-
Date of Service: January 09, 2024
-
Patient Diagnosis:bladder spasms probably due rtlo yuti and retntion urine better today
Post Op Day:
Subjective
-
feels back to baseline
Objective
-
Vital Signs
Temp Pulse Resp BP Pulse Ox
97.8 F 71 18 124/52 96
01/09/24 07:24 01/09/24 07:24 01/09/24 07:24 01/09/24 07:24 01/09/24 09:00
Intake and Output
01/08/24 01/09/24 01/10/24
06:59 06:59 06:59
Intake Total 960 / 960
Output Total 900 / 900
Balance 60 / 60
Intake:
Oral fluids 480 / 480
IV fluids (Total) 480 / 480
Output:
Urine, Voided 900 / 900
Laboratory Results
01/09/24 05:40
01/09/24 05:40
Review of Systems
-
: Difficulty Voiding
Physical Exam
-
General - well developed, well nourished, no acute distress
Chest - clear bilaterally
Abdomen - soft, non-tender, positive bowel sounds, no CVAT, no incisional pain or distention
Genitalia - normal
Rectal - normal
Skin - warm & dry with no rash
Neuro - AOx3, no motor deficits
Extremities - no clubbing, no cyanosis, no edema
Incision - clean, dry
Dressing - clean, dry, intact
Care Review
Data Reviewed
Discussed with: Hospitalist and Nursing
[2024-01-09] MEDS: NSS 1000 IV (13:21)
--- NOTE | 2024-01-09 14:46 | CON.ID ---
Consultation
-
Date/Time Consultation Requested: 01/08/2024 2246
Date/Time Consultation Performed: 01/09/2024 1415
Requesting Provider: Tawanna Issa
Performing Provider: Dr. Nguyen
Reason for Consultation: Fever; suspected complicated urinary tract infection
Chief Complaint / Past History
History of Present Illness
Joycelyn Dinero is a 78-year-old female being evaluated at the request of Tawanna Issa regarding a complicated urinary tract infection. History is obtained from chart review, along with patient interview.
The patient has a significant past medical history of spina bifida, along with renal transplant. She additionally has a history of neurogenic bladder, and has had a chronic Grady catheter in place for the past 6 years. She reports that the
catheter is usually changed every 5 weeks or so, and most recently was changed approximately 2 weeks ago. She notes that after week she noted some leakage around the catheter and was seen in the urology office. Yesterday, she developed some
discomfort in the transplant area, and also developed some urinary urgency and the feeling of pressure. She admits to feeling feverish at home, along with the development of chills and presented to the emergency room for further evaluation.
Here she was not found to be febrile, and white count was noted to be normal, although there is a left shift. She received a single dose of cefepime in the ER. Infectious Diseases is now asked to comment upon further antimicrobial therapy.
Again, at this time she continues to have some urinary pressure and discomfort around the transplanted kidney. She denies any headache. She admits to some cough, but no shortness of breath.
Past History
Additional Past Medical History:
CAD
HTN
Renal insufficiency
Rheumatoid arthritis
Spina bifida
Neurogenic bladder with chronic Grady catheter
Additional Past Surgical History:
Bilateral nephrectomy
Renal transplant
Hx ileal conduit with reversal
Left femur ORIF
Left total knee replacement
Allergy History:
alendronate sodium [From Fosamax] Allergy (Verified 03/23/23 18:44)
constipation
aspirin [Aspirin] Allergy (Verified 03/23/23 18:44)
contraindicated with transplant meds
azithromycin [From Zithromax] Allergy (Verified 03/23/23 18:44)
contraindicated with transplant meds
aztreonam [From Azactam] Allergy (Verified 03/23/23 18:44)
Swelling/REDNESS/FLUSHING
doxycycline Allergy (Verified 03/23/23 18:44)
Hives
influenza virus vaccine, specific [Influenza Virus Vacc,Specific] Allergy (Verified 03/23/23 18:44)
high fever,ache all over pt states doesnt want it again
levofloxacin [From Levaquin] Allergy (Verified 03/23/23 18:44)
Vomiting
NSAIDS (Non-Steroidal Anti-Inflamma [Nsaids] Allergy (Verified 03/23/23 18:44)
contraindicated with transplant meds
Penicillins Allergy (Verified 03/23/23 18:44)
has tolerated cefepime, ceftriaxone, cephalexin
tetracycline [Tetracycline] Allergy (Verified 03/23/23 18:44)
contraindicated with transplant meds
Medications Reviewed: Yes
Current Antibiotics:
None
Social History
Tobacco: Former Smoker
Alcohol: None
Drug: None
Personal:
Living: With Family
Employment: Not Employed
Family History
Family History: Not Pertinent
Review of Systems
Vital Signs
Temp Pulse Resp BP Pulse Ox
97.8 F 71 18 124/52 96
01/09/24 07:24 01/09/24 07:24 01/09/24 07:24 01/09/24 07:24 01/09/24 09:00
Physical Exam
Physical Exam
Constitutional: No Acute Distress, Comfortable, Chronically Ill and Non-toxic
Head: Normocephalic
Eyes: Pupils Equal, Pupils Round, No Conjunctival Hemorrhage and Sclera Anicteric
Oral: No Thrush and No Ulcers
Cardiovascular: S1/S2; Negative S3/S4 or Murmur
Pulmonary: Clear and Non Labored
Gastrointestinal: Soft, Non Tender, Non Distended and Normal Bowel Sounds
Genito-Urinary: Grady and Clear Urine (Significant sediment in tubing noted)
Extremities: Negative Edema, Cyanosis or Erythema
Neurological: Awake and Alert
Psychological: Calm
Lab / Diagnostic Study Results
01/09/24 05:40
01/09/24 05:40
Abs Immat Gran (auto) 0.1 10^3/uL (0-0.05) H 01/08/24 19:26
Absolute Neuts (auto) 6.8 10^3/uL (1.4-6.5) H 01/08/24 19:26
Absolute Lymphs (auto) 0.3 10^3/uL (1.2-3.4) L 01/08/24 19:26
Absolute Monos (auto) 0.2 10^3/uL (0.1-0.6) 01/08/24 19:26
Absolute Basos (auto) 0.0 10^3/uL (0-0.2) 01/08/24 19:26
Immature Gran % 1.2 % (0-0.5) H 01/08/24 19:26
Neutrophils % 90.9 % (42.2-75.2) H 01/08/24 19:26
Lymphocytes % 4.3 % (20.5-51.1) L 01/08/24 19:26
Monocytes % 3.2 % (1.7-9.3) 01/08/24 19:26
Eosinophils % 0.0 % (0-6) 01/08/24 19:26
Basophils % 0.4 % (0-2) 01/08/24 19:26
Lactic Acid Cancelled 01/08/24 23:15
Ur Squamous Epith Cells 0-2 /LPF (Few) 01/08/24 19:43
Microbiology Results
Micro:
01/08/24 21:27 Influenza Types A & B (LULA) - Final
Nasal Swab Negative for Influenza A & B, NAAT
Negative results must be combined with clinical observations
and patient history.
Nucleic Acid Amplification test (NAAT)performed on the
[employer] platform.
01/08/24 19:43 Urine Culture - Pending
Urine
01/08/24 19:26 Blood Culture - Pending
Blood/Venous
01/08/24 19:26 Blood Culture - Pending
Blood/Venous
Imaging:
01/08/2024 CXR (2 view): Linear opacities projecting of the right medial lower lung, consistent with known bullous change and unchanged from prior. There is a round opacity projecting of the lateral left midlung. No pleural effusion or pneumothorax.
Assessment / Plan
Suspected complicated urinary tract infection
Subjective fever
Normal white count with left shift
Neurogenic bladder with chronic Grady catheter
-Changed approximately 2 weeks ago
CAD
HTN
Renal insufficiency
Rheumatoid arthritis
Spina bifida
Recommendations:
Continue with cefepime for the present.
Methenamine can be discontinued while on antibiotics
Monitor white count and temperature curve.
Await further culture data to guide antimicrobial selection and potential de-escalation.
--- NOTE | 2024-01-09 14:53 | CM ---
Alert awake oriented patient who lives with her Nadir who lives in a 2 story home with 1 steps to enter and bed bathroom on first floor. She is independent in all activities of daily living.She does not drive.Offered VN she declined.She has
a hx on kidney transplant 45 years ago.She has chronic Grady and knows self care.Address is [address] [place] [address].
walker
had [facility] hx / [facility]
Pharmacy [facility] [place]
PCP Dr Salmon
PLAN Home no needs
[2024-01-09 15:35] VITALS: BP 114/53
[2024-01-09] MEDS: HEPARIN 5000 UNITS SC ×2 (17:33→23:23)
[2024-01-09] MEDS: MAXIPIME 1000 MG IV (17:34)
[2024-01-09] MEDS: STERILE WATER FOR INJECTION 10 ML IV (17:34)
[2024-01-09] MEDS: TYLENOL 650 MG PO (23:27)
[2024-01-09 23:28] VITALS: BP 130/71
[2024-01-10] MEDS: NSS 1000 IV ×2 (04:29→16:02)
[2024-01-10] MEDS: STERILE WATER FOR INJECTION 10 ML IV ×2 (04:30→15:58)
[2024-01-10] MEDS: MAXIPIME 1000 MG IV ×2 (04:30→15:58)
[2024-01-10 07:43] LABS: % Basophils 0.5 % (0-2); % Eosinophils 2.1 % (0-6); % Immature Granulocytes 1.2 % (0-0.5); % Lymphocytes 20.6 % (20.5-51.1); % Monocytes 8.7 % (1.7-9.3); % Neutrophils 66.9 % (42.2-75.2); Absolute Eosinophils 0.1 10^3/uL (0-0.7); Absolute Immature Granulocytes 0.1 10^3/uL (0-0.05); Absolute Lymphocytes 1.3 10^3/uL (1.2-3.4); Absolute Monocytes 0.5 10^3/uL (0.1-0.6); Absolute Neutrophils 4.1 10^3/uL (1.4-6.5); Hematocrit 30.6 % (37.0-47.0); Hemoglobin 9.9 g/dL (12.0-16.0); Mean Corp Hgb Conc. 32.4 g/dL (33.0-37.0); Mean Corpuscular Hgb 32.8 pg (27.0-31.0); Mean Corpuscular Volume 101.3 fL (81.0-99.0); Mean Platelet Volume 11.5 fL (7.4-10.4); Nucleated Red Blood Cells % 0 %; Platelet Count 203 10^3/uL (130-400); Red Blood Cell Count 3.02 10^6/uL (4.20-5.40); White Blood Cell Count 6.1 10^3/uL (4.8-10.8)
[2024-01-10 07:56] VITALS: BP 105/54
[2024-01-10 07:57] LABS: Blood Urea Nitrogen 28 mg/dl (7-17); Calcium 7.6 mg/dl (8.4-10.2); Carbon Dioxide 18 mmol/L (22-30); Chloride 113 mmol/L (98-107); Estimated Creatinine Clearance 37 ml/min; Glucose 85 mg/dl (70-99); Potassium 4.4 mmol/L (3.5-5.1); Sodium 141 mmol/L (135-145); eGFR 42.35
[2024-01-10] MEDS: VITAMIN D3 (cholecalciferol) 25 MCG PO (09:35)
[2024-01-10] MEDS: VITAMIN B-12 500 MCG PO (09:35)
[2024-01-10] MEDS: IMURAN 50 MG PO (09:35)
[2024-01-10] MEDS: DELTASONE 10 MG PO (09:35)
[2024-01-10] MEDS: HEPARIN 5000 UNITS SC ×3 (09:36→23:34)
--- NOTE | 2024-01-10 10:10 | W.PN.URO.CBU ---
Today's Communication / Plan
-
please exchehange foey
Assessment / Plan
-
uro sepsis christina returning to baseline will change jeffrey holloway pe hospitalist but may discharge from gu point of view
Diagnosis
-
Date of Service: January 10, 2024
-
Patient Diagnosis:
Post Op Day:
Patient Diagnosis:bladder spasms probably due rtlo yuti and retntion urine better today
Post Op Day:
Subjective
-
feels baselin
Objective
-
Vital Signs
Temp Pulse Resp BP Pulse Ox
97.5 F 71 14 105/54 94
01/10/24 07:56 01/10/24 07:56 01/10/24 07:56 01/10/24 07:56 01/10/24 07:56
Intake and Output
01/09/24 01/10/24 01/11/24
06:59 06:59 06:59
Intake Total 960 / 960 2580 / 2580
Output Total 900 / 900 3200 / 3200
Balance 60 / 60 -620 / -620
Intake:
Oral fluids 480 / 480 660 / 660
IV fluids (Total) 480 / 480 1920 / 1920
Output:
Urine, Grady 3200 / 3200
Urine, Voided 900 / 900
Laboratory Results
01/10/24 06:41
01/10/24 06:41
Review of Systems
-
Constitutional: No Symptoms
: Difficulty Voiding
Physical Exam
-
General - well developed, well nourished, no acute distress
Chest - clear bilaterally
Abdomen - soft, non-tender, positive bowel sounds, no CVAT, no incisional pain or distention
Genitalia - normal
Rectal - normal
Skin - warm & dry with no rash
Neuro - AOx3, no motor deficits
Extremities - no clubbing, no cyanosis, no edema
Incision - clean, dry
Dressing - clean, dry, intact
Care Review
Data Reviewed
Discussed with: Hospitalist and Nursing
--- NOTE | 2024-01-10 12:15 | W.PN.ID1 ---
Date of Service
Date of Service: January 10, 2024
Today's Communication
Continue antibiotics
Assessment / Plan
Suspected complicated urinary tract infection
- Urine culture with GNR's
Subjective fever
Normal white count with left shift
Neurogenic bladder with chronic Grady catheter
-Changed approximately 2 weeks ago
CAD
HTN
Renal insufficiency
Rheumatoid arthritis
Spina bifida
Recommendations:
Continue with cefepime for the present.
Monitor white count and temperature curve.
Await further culture data to guide antimicrobial selection and potential de-escalation.
����������������������������������������������������������
Chief Complaint
-: UTI
Subjective / Review of Systems
Patient seen and examined. Reports discomfort in the right lower quadrant (transplant area) has improved today. No fevers or chills.
Vital Signs / Physical Exam
Vital Signs
Vital Signs
Temp Pulse Resp BP Pulse Ox
97.5 F 71 14 105/54 94
01/10/24 07:56 01/10/24 07:56 01/10/24 07:56 01/10/24 07:56 01/10/24 09:00
Physical Exam
Constitutional: No Acute Distress
Eyes: Sclera Anicteric
Cardiovascular: Regular Rate and S1/S2
Pulmonary: Clear and Non Labored
Gastrointestinal: Soft, Non Tender, Non Distended and Normal Bowel Sounds
Genito-Urinary: Other (no tenderness over transplant)
Skin: Warm and Dry; Negative Rash or Jaundice
Neurological: Awake and Alert
Psychological: Calm
Objective Data
Lab Data
Lab Results
01/10/24 06:41
01/10/24 06:41
Estimated Creat Clear 37 ml/min 01/10/24 06:41
Lactic Acid Cancelled 01/08/24 23:15
Total Bilirubin 0.8 mg/dl (0.2-1.3) 01/08/24 19:26
AST 29 U/L (14-36) 01/08/24 19:26
ALT 21 U/L (0-35) 01/08/24 19:26
Alkaline Phosphatase 64 U/L (38-126) 01/08/24 19:26
Most recent labs reviewed.
Micro Results:
01/08/24 19:43 Urine Culture - Preliminary
Urine Gram negative bacilli
01/08/24 19:26 Blood Culture - Preliminary
Blood/Venous No Growth in 24 hours- Final report to follow
01/08/24 19:26 Blood Culture - Preliminary
Blood/Venous No Growth in 24 hours- Final report to follow
01/08/24 21:27 Influenza Types A & B (LULA) - Final
Nasal Swab Negative for Influenza A & B, NAAT
Negative results must be combined with clinical observations
and patient history.
Nucleic Acid Amplification test (NAAT)performed on the
[employer] platform.
Imaging:
01/08/2024 CXR (2 view): Linear opacities projecting of the right medial lower lung, consistent with known bullous change and unchanged from prior. There is a round opacity projecting of the lateral left midlung. No pleural effusion or pneumothorax.
--- NOTE | 2024-01-10 13:21 | W.PN.HOSP.TC ---
Today's Communication/Plan
-
Continue Cefepime
Grady catheter exchange
Assessment / Plan
Assessment / Plan
Physical Exam
General: Not in acute distress
HEENT: Normocephalic
Respiratory: Clear to Auscultation Bilaterally
Cardiac: S1/S2 and Regular Rhythm
GI: Soft, Non Tender, Non Distended and Normal Bowel Sounds
Genito-urinary: Grady Catheter present
Musculoskeletal: No Cyanosis and No Edema
Skin: Warm, Dry
Neuro: Awake, Alert, AO x 3 and Nonfocal/grossly intact
Psych: Calm and Intact Judgment/Insight
Assessment/Plan
78-year-old female with past medical history significant for neurogenic bladder, chronic kidney disease, kidney transplant, benign hypertension, rheumatoid arthritis, and spina bifida. Patient presented to [facility] for evaluation of fever,
rigors and bladder fullness feeling over past 24-hours. Patient states she has aching in the right flank area, which is typical when she has a UTI. Patient states she is having sensation she needs to urinate despite chronic Grady in place and
draining like normal. She denies cough, shortness of breath, chest pain, constipation, or diarrhea.
#Presentation with kidney and ureter ache (not pain), chills and rigors, subjective fever
#Concern for Acute Kidney Injury on Chronic Kidney Disease (CKD3)
#Chronic indwelling catheter
#Suspected complicated urinary tract infection
#History of Urinary Retention
#Neurogenic Bladder from surgical complications from spina bifida surgery
#Multiple antibiotic intolerances
#History of multidrug-resistant urinary tract infections
#Immunosuppressed State
- Creat 1.5, mildly elevated from baseline -- discussed with on-call staff nuclear weapons officer on 01/09/24 who said it is around baseline
- Last Grady change Thursday, Jan 06, 2024 in office (normal schedule every 5 weeks) -- got it changed early (prior to the Jan 05 change it was 2 weeks prior to that)
- Hold methenamine while patient is getting antibiotics
- Continue Cefepime
- Continue Prednisone 10 mg Q48H
- Continue home Imuran 50 mg daily
- Hold lisinopril for now and monitor creatinine
- Patient sees Dr. Davies outpatient, I spoke to on-call staff nuclear weapons officer here: she recommended to continue antibiotics, urology look at Grady catheter, monitor BMP, no need for nephrology consult for now
based on my discussion with her
- Patient sees Dr. Ha of urology outpatient -- consulted urology, appreciate recommendations: Grady Catheter exchange today
- Patient also was seeing digital imager Dr. Wallace outpatient because nephrology referred her to them -- discussed case with Dr. Quick on 01/09/24 and he said that based on outpatient records,
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 Nothing really to add now from hematology standpoint while patient is inpatient for REUBEN and PNA. She has follow up with hematology on 01/27/24 and
then sees hematology annually only.
#Kidney Transplant
#History of Bilateral nephrectomies
#Acquired Absence of Kidney
#CKD Stage 3
- Continue Prednisone 10 mg Q48H
- Continue home Imuran 50 mg daily
- Monitor BMP
#Cough
#Left upper Back pain prior to arrival
#Fever, Chills, Rigor suspected secondary to pneumonia and UTI
-Pneumonia on the lateral left midlung, as per radiologist's report
-Appreciate ID
#benign hypertension
- hold lisinopril, trend Creat
#CAD history?
#rheumatoid arthritis
- continue azathioprine
#Recurrent squamous cell skin cancer
- s/p multiple MOHS procedures
#obesity from excessive calories
- effects all aspects of care
#Osteoporosis
#Status post subtotal parathyroidectomy?
#Secondary renal hyperparathyroidism?
#Spina bifida of lumbar region without hydrocephalus
#Myelomeningocele
#Leg length discrepancy
#Left femur ORIF
#L TKR
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
#Appendectomy
Code Status: DNR
DVT Prophylaxis: Heparin subq
Anticipated Discharge: 24 - 48 hours
Subjective/Interval History
-
Date of Service: January 10, 2024
Patient was seen and examined. She reported no new complaints, reported chest wall and back musculoskeletal pain on her left side.
Objective Data
-
Labs:
Laboratory Results
01/10/24
06:41
WBC 6.1
Hgb 9.9 L
Hct 30.6 L
Plt Count 203
Sodium 141
Potassium 4.4
Chloride 113 H
Carbon Dioxide 18 L
BUN 28 H
Creatinine 1.3 H
Glucose 85
Calcium 7.6 L
Vital Signs:
Vital Signs
Temp Pulse Resp BP Pulse Ox
97.5 F 71 14 105/54 94
01/10/24 07:56 01/10/24 07:56 01/10/24 07:56 01/10/24 07:56 01/10/24 09:00
I&O
01/09/24 01/10/24 01/11/24
06:59 06:59 06:59
Intake Total 960 / 960 2580 / 2580
Output Total 900 / 900 3200 / 3200
Balance 60 / 60 -620 / -620
--- NOTE | 2024-01-10 13:30 | PTCARENOTE ---
Exchanged pt's murphy catheter per order from Dr. Carrasco. Pt tolerated catheter change without any difficulty. See documentation. Murphy catheter drained 350ml of yellow urine with scant amount of sediment after exchange.
[2024-01-10 13:50] LABS: Albumin 2.9 g/dl (3.5-5.0)
[2024-01-10 15:30] VITALS: BP 128/61
[2024-01-10] MEDS: TYLENOL 650 MG PO (21:38)
[2024-01-10 23:31] VITALS: BP 160/108
[2024-01-11] MEDS: MAXIPIME 1000 MG IV (04:27)
[2024-01-11] MEDS: STERILE WATER FOR INJECTION 10 ML IV (04:27)
[2024-01-11 04:31] VITALS: BP 91/38
[2024-01-11 04:36] VITALS: BP 131/59
[2024-01-11 07:30] VITALS: BP 128/59
[2024-01-11 07:49] LABS: % Basophils 0.6 % (0-2); % Eosinophils 2.1 % (0-6); % Lymphocytes 21.6 % (20.5-51.1); % Monocytes 8.4 % (1.7-9.3); % Neutrophils 66.3 % (42.2-75.2); Absolute Eosinophils 0.1 10^3/uL (0-0.7); Absolute Immature Granulocytes 0.1 10^3/uL (0-0.05); Absolute Lymphocytes 1.4 10^3/uL (1.2-3.4); Absolute Monocytes 0.5 10^3/uL (0.1-0.6); Absolute Neutrophils 4.2 10^3/uL (1.4-6.5); Hematocrit 30.5 % (37.0-47.0); Hemoglobin 9.6 g/dL (12.0-16.0); Mean Corp Hgb Conc. 31.5 g/dL (33.0-37.0); Mean Corpuscular Hgb 32.3 pg (27.0-31.0); Mean Corpuscular Volume 102.7 fL (81.0-99.0); Mean Platelet Volume 11.4 fL (7.4-10.4); Nucleated Red Blood Cells % 0 %; Platelet Count 208 10^3/uL (130-400); Red Blood Cell Count 2.97 10^6/uL (4.20-5.40); Red Cell Dist. Width 13.9 % (11.5-14.5); White Blood Cell Count 6.3 10^3/uL (4.8-10.8)
[2024-01-11 08:20] LABS: Blood Urea Nitrogen 21 mg/dl (7-17); Calcium 8.2 mg/dl (8.4-10.2); Carbon Dioxide 20 mmol/L (22-30); Chloride 112 mmol/L (98-107); Estimated Creatinine Clearance 43 ml/min; Glucose 78 mg/dl (70-99); Sodium 140 mmol/L (135-145); eGFR 51.75
[2024-01-11] MEDS: VITAMIN D3 (cholecalciferol) 25 MCG PO (09:54)
[2024-01-11] MEDS: IMURAN 50 MG PO (09:54)
[2024-01-11] MEDS: VITAMIN B-12 500 MCG PO (09:54)
[2024-01-11] MEDS: HEPARIN 5000 UNITS SC (09:55)
--- NOTE | 2024-01-11 14:27 | W.PN.ID1 ---
Date of Service
Date of Service: January 11, 2024
Today's Communication
Narrow to Cipro
Assessment / Plan
Suspected complicated urinary tract infection
- Urine culture with Pseudomonas and E. coli
Subjective fever
Normal white count with left shift
Neurogenic bladder with chronic Grady catheter
-Changed approximately 2 weeks ago
CAD
HTN
Renal insufficiency
Rheumatoid arthritis
Spina bifida
Recommendations:
Narrow to ciprofloxacin 250 mg p.o. twice daily for an additional 7 days. Encouraged good fluid intake.
����������������������������������������������������������
Chief Complaint
-: UTI
Subjective / Review of Systems
Review of Systems: No Fever and No Chills
Vital Signs / Physical Exam
Vital Signs
Vital Signs
Temp Pulse Resp BP Pulse Ox
97.7 F 71 18 128/59 96
01/11/24 07:30 01/11/24 07:30 01/11/24 07:30 01/11/24 07:30 01/11/24 07:30
Physical Exam
Constitutional: No Acute Distress, Comfortable and Non-toxic
Eyes: Sclera Anicteric
Pulmonary: Non Labored
Genito-Urinary: Grady and Clear Urine (Small amount of sediment in tubing)
Extremities: Edema; Negative Cyanosis or Erythema
Neurological: Awake and Alert
Psychological: Calm
Objective Data
Lab Data
Lab Results
01/11/24 06:19
01/11/24 06:19
Estimated Creat Clear 43 ml/min 01/11/24 06:19
Lactic Acid Cancelled 01/08/24 23:15
Total Bilirubin 0.8 mg/dl (0.2-1.3) 01/08/24 19:26
AST 29 U/L (14-36) 01/08/24 19:26
ALT 21 U/L (0-35) 01/08/24 19:26
Alkaline Phosphatase 64 U/L (38-126) 01/08/24 19:26
Most recent labs reviewed.
Micro Results:
01/08/24 19:43 Urine Culture - Final
Urine Pseudomonas aeruginosa
Escherichia coli
01/08/24 19:26 Blood Culture - Preliminary
Blood/Venous No Growth in 48 hours- Final report to follow
01/08/24 19:26 Blood Culture - Preliminary
Blood/Venous No Growth in 48 hours- Final report to follow
01/08/24 21:27 Influenza Types A & B (LULA) - Final
Nasal Swab Negative for Influenza A & B, NAAT
Negative results must be combined with clinical observations
and patient history.
Nucleic Acid Amplification test (NAAT)performed on the
[employer] platform.
sf
1. Pseudomonas aeruginosa
M.I.C. RX
--------- ---
Aztreonam 8 S
Cefepime <=2 S
Ceftazidime 4 S
Ciprofloxacin <=0.25 S
Meropenem <=1 S
Piperacillin/Tazobactam <=8 S
Tobramycin <=2 S
2. Escherichia coli
M.I.C. RX
--------- ---
Amoxicillin/Potas. Clavulanate <=8/4 S
Ampicillin <=8 S
Ampicillin/Sulbactam <=4/2 S
Aztreonam <=4 S
Cefazolin <=2 S
Ertapenem <=0.5 S
Ciprofloxacin <=0.25 S
Gentamicin <=2 S
Meropenem <=1 S
Nitrofurantoin-Urine Only <=32 S
Piperacillin/Tazobactam <=8 S
Tetracycline <=4 S
Tobramycin <=2 S
Trimethoprim/Sulfamethoxazole <=2/38 S
Imaging:
01/08/2024 CXR (2 view): Linear opacities projecting of the right medial lower lung, consistent with known bullous change and unchanged from prior. There is a round opacity projecting of the lateral left midlung. No pleural effusion or pneumothorax.
Care Review
Plan reviewed with: Physician (Hospitalist)
--- NOTE | 2024-01-11 14:39 | CM ---
Addendum entered by Sunita Medrano 01/11/24 16:31:
IMM provided to Joycelyn today at 1:17pm. Copy provided and signed copy placed on chart.
Original Note:
CM met with Joycelyn at bedside to discuss discharge plan. Home care offered and declined, as Joycelyn is (I) amb and adls; takes care of her own murphy catheter needs.
Plan: Discharge to home with no identified needs.
[2024-01-11 15:15] VITALS: BP 116/53
--- NOTE | 2024-01-11 15:24 | W.PN.HOSP.TC ---
Today's Communication/Plan
-
d/c home
Assessment / Plan
Assessment / Plan
1. Catheter associated urinary tract infection from E. coli/Pseudomonas
Chronic indwelling catheter for neurogenic bladder
Right flank pain - improved
-Urine culture growing E. coli/Pseudomonas pansensitive antibiotic
-ID helping with antibiotic and help appreciated
-Patient to be discharged on cefadroxil 250mg twice daily, not appropriate for Bactrim with history of renal transplant/CKD. Allergy of N/V noted with FQ
-Grady catheter has been changed by urology on 01/09
2. REUBEN on CKD IIIA
H/o of renal transplant
History of bilateral nephrectomy
-Patient had worsening renal function with creatinine elevated to 1.5
-Lisinopril was held and provided IV fluid
-Already Grady catheter in, no concern for postrenal component
-Creatinine has normalized to 1.1 today
-Patient to continue on home regimen of mycophenolate/Imuran/prednisone
-Patient follows up with call center specialist Dr Davies and continue to follow for now
3. Left lung opacity
History of right lower lobe nodule -stable
-Chest x-ray images reviewed and patient have left midlung rounded opacity
-already being discharged on FQ and should cover
-A follow-up chest x-ray prescription in 6 weeks provided to ensure resolution
-Patient is on Imuran/mycophenolate and at increased risk of malignancy. Patient to follow-up with pulmonology in office in 6 weeks as well
Essential hypertension
Rheumatoid arthritis
CAD history
Recurrent squamous cell skin cancer - s/p multiple MOHS procedures
obesity from excessive calories
Osteoporosis
Status post subtotal parathyroidectomy
Secondary renal hyperparathyroidism?
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
Myelomeningocele
Leg length discrepancy
Left femur ORIF
L TKR
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
Appendectomy
Code Status: DNR
DVT Prophylaxis: Heparin subq
More than 30 minutes spent in discharge including
Final examination of the patient
Summarizing hospital stay
Instructions for continuing care to all relevant caregivers
Preparation of discharge records, prescriptions, and referral forms
Total time spent (in minutes): 40 mins
Anticipated Discharge: Today
Subjective/Interval History
-
Date of Service: January 11, 2024
afebrile overnight
no abd pain
some right back pain, improved than admission signigicantly
Objective Data
-
Labs:
Laboratory Results
01/11/24
06:19
WBC 6.3
Hgb 9.6 L
Hct 30.5 L
Plt Count 208
Sodium 140
Potassium 5.0
Chloride 112 H
Carbon Dioxide 20 L
BUN 21 H
Creatinine 1.1 H
Glucose 78
Calcium 8.2 L
Vital Signs:
Vital Signs
Temp Pulse Resp BP Pulse Ox
97.7 F 71 18 128/59 96
01/11/24 07:30 01/11/24 07:30 01/11/24 07:30 01/11/24 07:30 01/11/24 07:30
I&O
01/10/24 01/11/24 01/12/24
06:59 06:59 06:59
Intake Total 2580 / 2580 2640 / 2640
Output Total 3200 / 3200 1800 / 1800
Balance -620 / -620 840 / 840
Review of Systems
-
Respiratory: Reports No Symptoms
Cardiac: Reports No Symptoms
Abdomen/GI: Reports No Symptoms
Physical Exam
-
General: No Apparent Distress and Comfortable
HEENT: Negative Oxygen
Respiratory: Clear to Auscultation
Cardiac: Regular Rhythm and S1/S2; Negative Murmur or Rub
GI: Soft, Nontender and Nondistended
Musculoskeletal: No Edema
Neuro: Awake, Alert, Oriented, No Motor Deficits and Nonfocal/Grossly Intact
Psych: Calm
[2024-01-11 17:21] VITALS: BP 164/87
--- NOTE | 2024-01-12 17:35 | W.DCSUMMARY ---
Discharge Summary
Discharge Data
Date of Admission: 01/08/24
Date of Discharge: 01/11/24
-
Pending Results: No
Hospital Course
Discharging Physician : Dr Oj Fischer
Disposition : To home
Primary care physician : Dr Denisse Salmon
Principal Discharge diagnosis :
Catheter associated urinary tract infection
Acute kidney injury on chronic kidney disease stage III
History of renal transplant
Left lung opacity/round atelectasis
Chronic Discharge diagnosis :
History of bilateral nephrectomy
Chronic indwelling Grady catheter
Essential hypertension
Rheumatoid arthritis
Coronary disease
History of recurrent squamous cell cancer
Obesity
Osteoporosis
History of subtotal parathyroidectomy
History of spina bifid of lumbar spine
History of myelomeningocele
History of left total knee replacement
History of femur fracture
History of ileal conduit urostomy with reversal postrenal transplant
History of appendectomy
Hospital Course :
Patient is a 78-year-old female with admission past medical history came to ER for having new onset of fever/rigors and right flank pain. Patient have history of frequent UTI with neurogenic bladder and patient was worried about having a repeat
episode. Initial urinalysis showing moderate pyuria and bacteriuria and patient felt to having repeat episode of chronic catheter associated urinary tract infection episode. Patient was started on empiric antibiotic and infectious disease/urology
was involved in care. Urine culture later grew E. coli/Pseudomonas and based on susceptibility patient was discharged on oral course of ciprofloxacin.
Patient also had some renal dysfunction. Lisinopril was held. Patient renal function normalized without any further intervention. As noted above patient does have history of renal transplant and currently on mycophenolate/Imuran/prednisone which
all were continued.
Patient also chest x-ray was incidentally noted to having left middle lung rounded opacity. A follow-up chest x-ray prescription provided within 6 weeks. Patient at increased risk of malignancy with need of immunosuppressive therapy. Patient
provided contact number of pulmonology office to follow-up as well.
Important imaging findings :
None
Procedure findings :
None
Discharge Plan
-
Patient Disposition: Home (Routine Discharge)
Discharge Diagnosis/Procedures: Pseudomonas/Ecoli catheter associated UTI
Condition: Fair
Diet: Regular
Activity: As tolerated
Driving Restrictions: No driving
Bathing Restrictions: OK to Shower
Referrals:
Jorge Camargo MD [Active] - in six weeks
Denisse Samlon MD [Family Provider] - in one week
Prescriptions:
New
ciprofloxacin HCl 250 mg Tablet
250 mg PO BID Qty: 14 0RF
Continued
prednisone 10 MG tablet
10 mg PO Q48H
azathioprine 50 MG tablet
50 mg PO DAILY
cyanocobalamin (vitamin B-12) 1,000 MCG tablet
500 mcg PO DAILY
lisinopril 5 MG tablet
5 mg PO HS
sennosides-docusate sodium [Colace 2-In-1] 8.6-50 mg Tablet
1 tab-cap PO Q72H
acetaminophen [Tylenol Extra Strength] 500 mg Tablet
1,000 mg PO Q6HPRN PRN (Reason: mild pain/CRESPO/temp>100.4F)
methenamine hippurate 1 gram Tablet
1 g PO HS
bisacodyl 5 mg Tablet
10 mg PO Q72H
cholecalciferol (vitamin D3) 25 mcg (1,000 unit) Tablet
25 mcg PO DAILY
Ocusoft
1 spray BOTH EYES BID
Discharge Orders:
Discharge Patient (As Directed); Ordered 01/11/24
Ordered By: Oj Fischer
Discharge Date and Time
Discharge Date/Time: 01/11/24 18:08
Print Language: ANDORRAN
== END 2024-01-11 18:08 | disposition home or self-care (01) | DRG 699 ==
LOC: 4 EAST ACU 21:58
PROVIDERS: Hospitalist; Nurse Practitioner Family; Physician Assistant Medical; ADMITTING PHYSICIAN Internal Medicine; ATTENDING PHYSICIAN Hospitalist; CONSULT PHYSICIAN Internal Medicine Infectious Disease; CONSULT PHYSICIAN Specialist; EMERGENCY PHYSICIAN Emergency Medicine; FAMILY PHYSICIAN Internal Medicine
DX: T83.511A Infection and inflammatory reaction due to indwelling urethral catheter, initial encounter (principal); D84.821 Immunodeficiency due to drugs; N17.9 Acute kidney failure, unspecified; Z94.0 Kidney transplant status; N39.0 Urinary tract infection, site not specified; M81.0 Age-related osteoporosis without current pathological fracture; N31.9 Neuromuscular dysfunction of bladder, unspecified; Z66 Do not resuscitate; M06.9 Rheumatoid arthritis, unspecified; Q05.9 Spina bifida, unspecified; I12.9 Hypertensive chronic kidney disease with stage 1 through stage 4 chronic kidney disease, or unspecified chronic kidney disease; N18.32 Chronic kidney disease, stage 3b; D63.1 Anemia in chronic kidney disease; B96.5 Pseudomonas (aeruginosa) (mallei) (pseudomallei) as the cause of diseases classified elsewhere; B96.20 Unspecified Escherichia coli [E. coli] as the cause of diseases classified elsewhere; I25.10 Atherosclerotic heart disease of native coronary artery without angina pectoris; Z87.891 Personal history of nicotine dependence; Z88.6 Allergy status to analgesic agent; Z88.1 Allergy status to other antibiotic agents; Z88.0 Allergy status to penicillin; Z79.899 Other long term (current) drug therapy; Z79.52 Long term (current) use of systemic steroids; Z79.69 Long term (current) use of other immunomodulators and immunosuppressants; Z87.440 Personal history of urinary (tract) infections; Z96.652 Presence of left artificial knee joint; Y73.2 Prosthetic and other implants, materials and accessory gastroenterology and urology devices associated with adverse incidents; Z11.52 Encounter for screening for COVID-19
CPT/HCPCS: 71046; 80048; 80053; 81003; 81015; 82040; 83605; 85025; 85027; 87040; 87077; 87086; 87186; 87502; 87811; 96374; 99284; J7500

== ENCOUNTER → 2024-01-18 09:02 | Outpatient (REF) | payer MEDICARE, BC, SELFPAY ==
[2024-01-18 09:56] LABS: % Basophils 0.8 % (0-2); % Eosinophils 2.1 % (0-6); % Immature Granulocytes 3.7 % (0-0.5); % Lymphocytes 18.6 % (20.5-51.1); % Monocytes 9.6 % (1.7-9.3); % Neutrophils 65.2 % (42.2-75.2); Absolute Basophils 0.1 10^3/uL (0-0.2); Absolute Eosinophils 0.2 10^3/uL (0-0.7); Absolute Immature Granulocytes 0.3 10^3/uL (0-0.05); Absolute Lymphocytes 1.7 10^3/uL (1.2-3.4); Absolute Monocytes 0.9 10^3/uL (0.1-0.6); Absolute Neutrophils 5.8 10^3/uL (1.4-6.5); Hemoglobin 12.3 g/dL (12.0-16.0); Mean Corp Hgb Conc. 31.5 g/dL (33.0-37.0); Mean Corpuscular Hgb 32.4 pg (27.0-31.0); Mean Corpuscular Volume 102.6 fL (81.0-99.0); Mean Platelet Volume 10.7 fL (7.4-10.4); Nucleated Red Blood Cells % 0 %; Platelet Count 306 10^3/uL (130-400); Red Cell Dist. Width 14.1 % (11.5-14.5)
[2024-01-18 10:30] LABS: ALT (SGPT) 23 U/L (0-35); AST (SGOT) 27 U/L (14-36); Albumin 4.6 g/dl (3.5-5.0); Alkaline Phosphatase 61 U/L (38-126); Blood Urea Nitrogen 37 mg/dl (7-17); Calcium 9.6 mg/dl (8.4-10.2); Carbon Dioxide 20 mmol/L (22-30); Chloride 106 mmol/L (98-107); Glucose 89 mg/dl (70-99); Potassium 4.5 mmol/L (3.5-5.1); Sodium 140 mmol/L (135-145); Total Bilirubin 0.6 mg/dl (0.2-1.3); Total Protein 7.3 g/dl (6.3-8.2); eGFR 35.67
[2024-01-19 15:25] LABS: Beta-2-Microglobulin 5.3 mg/L (<=3.0)
[2024-01-20 13:20] LABS: Albumin 4.16 g/dL (3.75-5.01); Alpha 1 Globulin 0.37 g/dL (0.19-0.46); Free Kappa Light Chains,Quant 124.21 mg/L (3.30-19.40); Free Lambda Light Chains,Quant 23.37 mg/L (5.71-26.30); IgA 280 mg/dL (68-408); IgG 700 mg/dL (768-1632); IgM 108 mg/dL (35-263); Immunofixation Electrophoresis IFE Done; Kappa/Lambda Fr Light Ratio 5.31 (0.26-1.65)
== END ==
LOC: REG 09:02
PROVIDERS: ATTENDING PHYSICIAN Internal Medicine Hematology & Oncology; FAMILY PHYSICIAN Internal Medicine
DX: D47.2 Monoclonal gammopathy (principal)
CPT/HCPCS: 36415; 80053; 82232; 82784; 83521; 84155; 84165; 85025; 86334

== ENCOUNTER 2024-01-18 19:36 | Emergency (ER) | payer MEDICARE, BC, SELFPAY ==
[2024-01-18 19:42] VITALS: BP 138/70
[2024-01-18 19:57] LABS: % Basophils 0.4 % (0-2); % Eosinophils 0.1 % (0-6); % Immature Granulocytes 1.7 % (0-0.5); % Lymphocytes 6.7 % (20.5-51.1); % Monocytes 4.6 % (1.7-9.3); % Neutrophils 86.5 % (42.2-75.2); Absolute Immature Granulocytes 0.1 10^3/uL (0-0.05); Absolute Lymphocytes 0.5 10^3/uL (1.2-3.4); Absolute Monocytes 0.3 10^3/uL (0.1-0.6); Hemoglobin 11.6 g/dL (12.0-16.0); Mean Corp Hgb Conc. 33.1 g/dL (33.0-37.0); Mean Corpuscular Hgb 32.6 pg (27.0-31.0); Mean Corpuscular Volume 98.3 fL (81.0-99.0); Mean Platelet Volume 10.1 fL (7.4-10.4); Nucleated Red Blood Cells % 0 %; Platelet Count 285 10^3/uL (130-400); Red Blood Cell Count 3.56 10^6/uL (4.20-5.40); Red Cell Dist. Width 13.7 % (11.5-14.5); White Blood Cell Count 6.9 10^3/uL (4.8-10.8)
[2024-01-18 20:24] LABS: ALT (SGPT) 20 U/L (0-35); AST (SGOT) 23 U/L (14-36); Albumin 4.3 g/dl (3.5-5.0); Alkaline Phosphatase 68 U/L (38-126); Blood Urea Nitrogen 33 mg/dl (7-17); Calcium 9.2 mg/dl (8.4-10.2); Carbon Dioxide 23 mmol/L (22-30); Chloride 103 mmol/L (98-107); Glucose 190 mg/dl (70-99); Potassium 4.9 mmol/L (3.5-5.1); Sodium 137 mmol/L (135-145); Total Bilirubin 0.6 mg/dl (0.2-1.3); Total Protein 6.8 g/dl (6.3-8.2); eGFR 42.35
--- NOTE | 2024-01-18 21:26 | ED.GENMED ---
History of Present Illness
General
Chief Complaint: Urinary Symptoms
Source: patient
Exam Limitations: none
Time Seen by Provider: 01/18/24 21:15
History of Present Illness
History of Present Illness:
See MDM
Past History
Past History
ED Past Medical History: CAD, HTN, Renal failure, Other (Osteoma rheumatoid arthritis), Other (Spina bifida) and Other (ESRD s/p renal transplant 1979, Neurogenic bladder, chronic urinary tract infections, pyelonephritis, proteinuria, osteoporosis,
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
ED Past Surgical History: Appendectomy, Bowel resection, Orthopedic (Left knee replacement, Sandeep left femur), Tonsilectomy and Other (Kidney transplant R kidney only)
Social History
Tobacco: Former smoker
Alcohol: Occasional
Drug: None
Personal:
Living: with family
Employment: Not employed
Family History
Family History: Other
Phy Exam
Physical Exam
Physical Exam:
See MDM
Course
Orders/Labs/Results
Orders:
Orders
01/18/24 19:51
CBC/With Diff [Complete Blood Count/With Diff] Urgent
CMP [Comprehensive Metabolic Panel] Urgent
01/18/24 21:25
Acetaminophen [Tylenol] 650 mg PO NOW STA
Cefepime HCl [Maxipime] 1,000 mg IV NOW STA
01/18/24 21:37
Meropenem [Merrem] 1,000 mg IV NOW STA
01/18/24 22:00
Urinalysis Reflex To Culture Urgent
Date Specimen was Collected: 01/18/24
Time Specimen was Collected: 19:45
Urine Microscopic Reflex Cult Urgent
Abnormal Lab Results
01/18/24 01/18/24
19:51 22:00
RBC 3.56 L 10^6/uL
(4.20-5.40)
Hgb 11.6 L g/dL
(12.0-16.0)
Hct 35.0 L %
(37.0-47.0)
MCH 32.6 H pg
(27.0-31.0)
Abs Immat Gran (auto) 0.1 H 10^3/uL
(0-0.05)
Absolute Lymphs (auto) 0.5 L 10^3/uL
(1.2-3.4)
Immature Gran % 1.7 H %
(0-0.5)
Neutrophils % 86.5 H %
(42.2-75.2)
Lymphocytes % 6.7 L %
(20.5-51.1)
BUN 33 H mg/dl
(7-17)
Creatinine 1.3 H mg/dL
(0.6-1.0)
Glucose 190 H mg/dl
(70-99)
Leukocyte Esterase Rfl Trace A
(Negative)
01/18/24 19:51
01/18/24 19:51
Vital Signs
Initial and Last Documented VS:
Initial Vital Signs
Temp Pulse Resp BP Pulse Ox
98.1 F 92 15 138/70 94
01/18/24 19:42 01/18/24 19:42 01/18/24 19:42 01/18/24 19:42 01/18/24 19:42
Last Documented Vital Signs
Temp Pulse Resp BP Pulse Ox
98.1 F 76 19 157/75 98
01/18/24 19:42 01/18/24 21:56 01/18/24 21:56 01/18/24 21:56 01/18/24 21:56
MDM/Problems Addressed
Differential Diagnosis Includes:
HPI and MDM Narrative:
78-year-old female presenting with bladder pain and kidney pain. Patient has a history of kidney transplant and is susceptible to getting kidney infections. Patient was recently admitted last month for the same thing where she was found to have E.
coli and Pseudomonas growth. Both were dahl susceptible but patient states she cannot tolerate Levaquin and Cipro does not always work for her. She was due to take her last dose of Cipro today but her bladder pain is now developing into kidney pain
in the right lower quadrant. Patient states this is her presentation of kidney infections. She denies fevers. Patient states cefepime appears to be the only thing it seems to work for her. However, there is no susceptibilities seen on cefepime
for the recently diagnosed E. coli. Will start meropenem as this will cover both
Physical exam
General: Well appearing and non-toxic
HEENT: protecting airway
Neck: appears supple
CV: No evidence of cyanosis
Resp: No accessory muscle use
Abd: Non-distended. Very mild suprapubic tenderness. No rebound
Extremities: No deformities
Neuro: alert
Psych: Normal affect
Skin: Intact
Problems Addressed including Acute and Chronic Conditions affecting care:
1. Urinary frequency
Acuity: acute
Prognosis: stable
Details: Given her indwelling catheter and kidney transplant, will start meropenem which will cover both Pseudomonas and E. coli
Updates
Urinalysis was found to be negative for infection. Will discharge
Differential Diagnosis (but not limited to): UTI, pyelonephritis
Testing considered: CT abdomen/pelvis but no significant abdominal tenderness noted
Drug therapy (if applicable): OTC meds, please see d/c instruction regarding Rx drugs
Amount and/or Complexity of Data Reviewed
Clinical info obtained from: Patient
External data reviewed: Recently admitted last month for UTI showing both Pseudomonas and E. coli
Labs I independently reviewed (but not limited to): Urinalysis, creatinine
Radiology: N/A
Pulse Ox: not hypoxic
EKG independently reviewed: N/A
Gis Administrator: N/A
Critical Care: N/A
Risk of Complication:
Social Determinants of health: Good social support
Discussed with other providers: N/A
Escalation of Care includes Admit/Obs: After being observed in the Emergency Department, pt stable for discharge.
Occasional wrong word or 'sound a like' substitutions may have occurred due to the inherent limitations of voice recognition software. Read the chart carefully and recognize, using context, where substitutions have occurred.
*Critical Care Note
Total Time (30-74mins, 75-104mins- exclusive of procedures): Not Applicable
ED Attending Note
-
Portions of this chart may have been created with voice recognition software.� Occasional wrong word or��sound alike� substitutions may have occurred due to the inherent limitations of voice recognition software.
Discharge Plan
Departure
Patient Disposition: Home (Routine Discharge)
Date of Disposition: 01/18/24
Time of Disposition: 22:43
Patient with high blood pressure during this ER visit?: Yes
Discharge Problem:
Urinary frequency
Instructions: BLOOD PRESSURE
Prescriptions:
No Action
prednisone 10 MG tablet
10 mg PO Q48H
azathioprine 50 MG tablet
50 mg PO DAILY
cyanocobalamin (vitamin B-12) 1,000 MCG tablet
1,000 mcg PO DAILY
lisinopril 5 MG tablet
5 mg PO HS
sennosides-docusate sodium [Colace 2-In-1] 8.6-50 mg Tablet
1 tab-cap PO Q72H
acetaminophen [Tylenol Extra Strength] 500 mg Tablet
1,000 mg PO Q6HPRN PRN (Reason: mild pain/CRESPO/temp>100.4F)
methenamine hippurate 1 gram Tablet
1 g PO HS
bisacodyl 5 mg Tablet
10 mg PO Q72H
cholecalciferol (vitamin D3) 25 mcg (1,000 unit) Tablet
25 mcg PO DAILY
Ocusoft
1 spray BOTH EYES BID
ciprofloxacin HCl 250 mg Tablet
250 mg PO BID Qty: 14 0RF
Patient Comments:
01/18/24: Patient has 1 left
Referrals:
Denisse Salmon MD [Family Provider] -
Activity Restrictions/Additional Instructions:
Please return for any worsening symptoms.
You may return at any time if you have further concerns.
Please follow up with your doctor at the first available appointment, preferably this week. As we discussed, your urinalysis was negative for infection today.
Thank you for choosing [facility].
Interventions
Interventions:
*Risk Screen - Suicide Last Done: 01/18/24 19:42
*General Assessment Last Done: 01/18/24 19:42
*Neglect/Abuse Screening Last Done: 01/18/24 19:42
*ED COVID-19 Vaccine History Last Done: 01/18/24 21:56
ED-Female Genitourinary Assessment Last Done: 01/18/24 21:56
Discharge Date and Time
Print Language: [id number]
[2024-01-18 21:56] VITALS: BP 157/75
[2024-01-18] MEDS: TYLENOL 650 MG PO (21:57)
[2024-01-18] MEDS: MERREM 1000 MG IV (21:58)
[2024-01-18 22:01] VITALS: BMI 32.3
[2024-01-18 22:14] LABS: Urine Albumin Negative (Neg - Trace); Urine Bilirubin Negative (Negative); Urine Character Clear (Clear); Urine Color Straw; Urine Glucose Negative (Negative); Urine Ketone Negative (Negative); Urine Leukocyte Trace (Negative); Urine Nitrite Negative (Negative); Urine Occult Blood Negative (Negative); Urine Urobilinogen Negative (Neg - 1+)
[2024-01-18 22:25] LABS: Urine Red Blood Cell None Seen /HPF (0-2); Urine White Cell 0-2 /HPF (0-5)
[2024-01-18 23:20] VITALS: BP 149/66
== END 2024-01-18 23:25 | disposition home or self-care (01) ==
LOC: EMR 19:36
PROVIDERS: EMERGENCY PHYSICIAN Student in an Organized Health Care Education/Training Program; FAMILY PHYSICIAN Internal Medicine
DX: R35.0 Frequency of micturition (principal); N23 Unspecified renal colic; I25.10 Atherosclerotic heart disease of native coronary artery without angina pectoris; I12.0 Hypertensive chronic kidney disease with stage 5 chronic kidney disease or end stage renal disease; N18.6 End stage renal disease; M06.9 Rheumatoid arthritis, unspecified; Q05.9 Spina bifida, unspecified; N31.9 Neuromuscular dysfunction of bladder, unspecified; Z94.0 Kidney transplant status; Z96.652 Presence of left artificial knee joint; Z87.440 Personal history of urinary (tract) infections; Z87.01 Personal history of pneumonia (recurrent); Z87.891 Personal history of nicotine dependence; Z98.0 Intestinal bypass and anastomosis status; Z88.6 Allergy status to analgesic agent; Z88.1 Allergy status to other antibiotic agents; Z88.0 Allergy status to penicillin; Z88.7 Allergy status to serum and vaccine; Z88.8 Allergy status to other drugs, medicaments and biological substances
CPT/HCPCS: 99284; 96374; 80053; 81003; 81015; 85025; J2185

== ENCOUNTER → 2024-03-15 12:28 | Outpatient (REF) | payer MEDICARE, BC, SELFPAY | LOC: RAD 12:28 | PROVIDERS: ATTENDING PHYSICIAN Internal Medicine Hematology & Oncology; FAMILY PHYSICIAN Internal Medicine | DX: D47.2 Monoclonal gammopathy (principal); R91.8 Other nonspecific abnormal finding of lung field | CPT/HCPCS: 71046 ==

== ENCOUNTER 2024-04-01 13:22 | Emergency (ER) | payer MEDICARE, BC, SELFPAY ==
[2024-04-01 13:34] VITALS: BP 145/95
[2024-04-01 14:29] VITALS: BP 130/73
[2024-04-01 14:32] LABS: COVID-19 Antigen Negative (Negative)
--- NOTE | 2024-04-01 15:14 | ED.GENMED ---
History of Present Illness
General
Chief Complaint: Cold/Flu/URI Symptoms
Source: patient
Exam Limitations: none
Time Seen by Provider: 04/01/24 15:01
Nursing documentation reviewed up to this point in time: agreed with
History of Present Illness
History of Present Illness:
Patient to ED with complaint of cough and SOB. Started feeling ill 1.5 weeks ago. COmplained of nasal congestion, sorethroat, cough. had similar symptoms. States she did a telemed appt with PCP and was placed on Cefuroxime 250mg bid.
SHe completed course yesterday and does not feel any better. Reports SOB, worsening cough. Brought self to ED for eval.
Past History
Past History
ED Past Medical History: CAD, HTN, Renal failure, Other (Osteoma rheumatoid arthritis), Other (Spina bifida) and Other (ESRD s/p renal transplant 1978, Neurogenic bladder, chronic urinary tract infections, pyelonephritis, proteinuria, osteoporosis,
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
ED Past Surgical History: Appendectomy, Bowel resection, Orthopedic (Left knee replacement, Sandeep left femur), Tonsilectomy and Other (Kidney transplant R kidney only)
Social History
Tobacco: Former smoker
Alcohol: Occasional
Drug: None
Personal:
Living: with family
Employment: Not employed
Family History
Family History: Other
Review of Systems
Review of Systems
Allergies reviewed?: Yes
All Other Systems: ROS reviewed and negative except as documented in HPI and ROS
Constitutional: Reports no symptoms
EENT: Reports other (nasal congestion)
Respiratory: Reports cough and trouble breathing
Cardiac: Reports no symptoms
ABD/GI: Reports no symptoms
: Reports no symptoms
Musculoskeletal: Reports no symptoms
Skin: Reports no symptoms
Neurological: Reports no symptoms
Psychiatric: Reports no symptoms
Phy Exam
General Physical Exam
General Presentation: well appearing and no apparent distress
General age: appears stated age
General Skin: warm
General Habitus: normal
General Mental: alert
General Hydration: appears well hydrated
Cardiovascular Exam
Cardiovascular Exam: regular rate/rhythm and no edema
Pulmonary Exam
Pulmonary Exam: no respiratory distress
Cough: non productive cough
Breath Sounds: Wheeze: generalized
Gastrointestinal Exam
Gastrointestinal Exam: non tender and soft
Musculoskeletal Exam
Musculoskeletal Exam: full ROM
Skin Exam
Skin Exam: normal color, warm/dry and no rash
Psychiatric Exam
Psychiatric Exam: normal mood/affect
Course
Orders/Labs/Results
Orders:
Orders
04/01/24 13:46
COVID-19 Antigen Urgent
Source: Nasal Swab
Influenza A+B Rapid Molecular Urgent
[facility] Source: Nasal Swab
Specimen Description:
04/01/24 14:39
Influenza A+B Rapid Molecular Routine
[facility] Source: [facility]
Specimen Description:
04/01/24 15:12
Ipratropium/Albuterol Sulfate [Duoneb] 3 ml INH R NOW STA
04/01/24 15:13
CR Chest - 2 Views Urgent
Comment:
Reason For Exam: SOB, cough
04/01/24 15:42
Complete Blood Count/With Diff Urgent
Comprehensive Metabolic Panel Urgent
NT-proBNP Urgent
Abnormal Lab Results
04/01/24
15:42
RBC 3.94 L 10^6/uL
(4.20-5.40)
MCH 32.0 H pg
(27.0-31.0)
Abs Immat Gran (auto) 0.1 H 10^3/uL
(0-0.05)
Absolute Neuts (auto) 7.0 H 10^3/uL
(1.4-6.5)
Absolute Lymphs (auto) 0.4 L 10^3/uL
(1.2-3.4)
Immature Gran % 0.9 H %
(0-0.5)
Neutrophils % 89.6 H %
(42.2-75.2)
Lymphocytes % 5.5 L %
(20.5-51.1)
Carbon Dioxide 21 L mmol/L
(22-30)
BUN 23 H mg/dl
(7-17)
Creatinine 1.2 H mg/dL
(0.6-1.0)
Glucose 108 H mg/dl
(70-99)
04/01/24 15:42
04/01/24 15:42
Vital Signs
Initial and Last Documented VS:
Initial Vital Signs
Temp Pulse Resp BP Pulse Ox
97.9 F 86 16 145/95 99
04/01/24 13:34 04/01/24 13:34 04/01/24 13:34 04/01/24 13:34 04/01/24 13:34
Last Documented Vital Signs
Temp Pulse Resp BP Pulse Ox
97.9 F 79 18 121/57 96
04/01/24 14:29 04/01/24 17:34 04/01/24 17:34 04/01/24 17:34 04/01/24 17:34
*Radiology
Radiology exam reviewed: radiology read reviewed
*Pulse Oximetry
Patient hypoxic: no
*Critical Care Note
Total Time (30-74mins, 75-104mins- exclusive of procedures): Not Applicable
Update Note
Update Note:
IMproved with duoneb. Wheezing resolved. WIll place on albuterl MDI QID. CXR reviewd. RLL with small opacity. Atelectasis vs small pneumonia. WBC is normal. She remains afebrile. PUlse ox 97%RA. No respiratory distress. SHe completed a course
of cephalosporin antibiotic yesterday. Doubtful for new pneumonia. Will discharge home and she will continue albuterol MDI, close follow up with PCP. Given instructions on s/s to return to ED and she is agreeable to plan. Xray reviewed with
Debra, agrees with plan.
ED Attending Note
-
Portions of this chart may have been created with voice recognition software.� Occasional wrong word or��sound alike� substitutions may have occurred due to the inherent limitations of voice recognition software.
Discharge Plan
Departure
Patient Disposition: Home (Routine Discharge)
Date of Disposition: 04/01/24
Time of Disposition: 17:20
Patient with high blood pressure during this ER visit?: No
Condition: Good
Covid-19: Not Applicable
Discharge Problem:
Cough in adult
Instructions: Cough in adults - ED discharge instructions
Prescriptions:
New
albuterol sulfate 90 mcg/actuation HFA aerosol inhaler
2 puff inhalation QID PRN (Reason: shortness of breath or wheezing) Qty: 8.5 0RF
triamcinolone acetonide [Nasacort] 55 mcg aerosol,spray
1 spray intranasal DAILY Qty: 16.9 0RF
No Action
prednisone 10 MG tablet
10 mg PO Q48H
azathioprine 50 MG tablet
50 mg PO DAILY
cyanocobalamin (vitamin B-12) 1,000 MCG tablet
1,000 mcg PO DAILY
lisinopril 5 MG tablet
5 mg PO HS
sennosides-docusate sodium [Colace 2-In-1] 8.6-50 mg Tablet
1 tab-cap PO Q72H
acetaminophen [Tylenol Extra Strength] 500 mg Tablet
1,000 mg PO Q6HPRN PRN (Reason: mild pain/CRESPO/temp>100.4F)
methenamine hippurate 1 gram Tablet
1 g PO HS
bisacodyl 5 mg Tablet
10 mg PO Q72H
cholecalciferol (vitamin D3) 25 mcg (1,000 unit) Tablet
25 mcg PO DAILY
Ocusoft
1 spray BOTH EYES BID
ciprofloxacin HCl 250 mg Tablet
250 mg PO BID Qty: 14 0RF
Patient Comments:
01/18/24: Patient has 1 left
Referrals:
Denisse Salmon MD [Family Provider] -
Activity Restrictions/Additional Instructions:
Return to the emergency department immediately for any changes in/worsening of your symptoms
Interventions
Interventions:
*Risk Screen - Suicide Last Done: 04/01/24 13:37
*General Assessment Last Done: 04/01/24 14:17
*Neglect/Abuse Screening Last Done: 04/01/24 13:37
*ED COVID-19 Vaccine History Last Done: 04/01/24 14:17
*Nursing Disposition Last Done: 04/01/24 17:58
ED- Pulmonary Assessment Last Done: 04/01/24 14:31
Discharge Date and Time
Discharge Date/Time: 04/01/24 17:58
Print Language: BURKINAN
[2024-04-01] MEDS: DUONEB 3 ML INH (15:43)
[2024-04-01 16:04] LABS: % Basophils 0.3 % (0-2); % Eosinophils 0.3 % (0-6); % Immature Granulocytes 0.9 % (0-0.5); % Lymphocytes 5.5 % (20.5-51.1); % Monocytes 3.4 % (1.7-9.3); % Neutrophils 89.6 % (42.2-75.2); Absolute Immature Granulocytes 0.1 10^3/uL (0-0.05); Absolute Lymphocytes 0.4 10^3/uL (1.2-3.4); Absolute Monocytes 0.3 10^3/uL (0.1-0.6); Hematocrit 37.9 % (37.0-47.0); Hemoglobin 12.6 g/dL (12.0-16.0); Mean Corp Hgb Conc. 33.2 g/dL (33.0-37.0); Mean Corpuscular Volume 96.2 fL (81.0-99.0); Mean Platelet Volume 10.4 fL (7.4-10.4); Nucleated Red Blood Cells % 0 %; Platelet Count 274 10^3/uL (130-400); Red Blood Cell Count 3.94 10^6/uL (4.20-5.40); Red Cell Dist. Width 13.6 % (11.5-14.5); White Blood Cell Count 7.8 10^3/uL (4.8-10.8)
[2024-04-01 16:18] LABS: ALT (SGPT) 19 U/L (0-35); AST (SGOT) 25 U/L (14-36); Albumin 4.3 g/dl (3.5-5.0); Alkaline Phosphatase 65 U/L (38-126); Blood Urea Nitrogen 23 mg/dl (7-17); Calcium 9.2 mg/dl (8.4-10.2); Carbon Dioxide 21 mmol/L (22-30); Chloride 102 mmol/L (98-107); Glucose 108 mg/dl (70-99); Potassium 4.6 mmol/L (3.5-5.1); Sodium 135 mmol/L (135-145); Total Bilirubin 0.9 mg/dl (0.2-1.3); Total Protein 6.6 g/dl (6.3-8.2); eGFR 46.62
[2024-04-01 16:30] LABS: NT-proBNP 396 pg/ml
[2024-04-01 17:34] VITALS: BP 121/57
== END 2024-04-01 17:58 | disposition home or self-care (01) ==
LOC: EMR 13:22
PROVIDERS: Emergency Medicine; Nurse Practitioner; EMERGENCY PHYSICIAN Emergency Medicine; FAMILY PHYSICIAN Internal Medicine
DX: R05.9 Cough, unspecified (principal); R06.02 Shortness of breath; I25.10 Atherosclerotic heart disease of native coronary artery without angina pectoris; M06.9 Rheumatoid arthritis, unspecified; I12.0 Hypertensive chronic kidney disease with stage 5 chronic kidney disease or end stage renal disease; N18.6 End stage renal disease; Z94.0 Kidney transplant status; Z87.891 Personal history of nicotine dependence
CPT/HCPCS: 94640; 99284; 71046; 80053; 83880; 85025; 87502; 87811

== ENCOUNTER → 2024-04-12 11:06 | Outpatient (REF) | payer MEDICARE, BC, SELFPAY | LOC: HWRAD 11:06 | PROVIDERS: ATTENDING PHYSICIAN Internal Medicine Hematology & Oncology; FAMILY PHYSICIAN Internal Medicine | DX: R91.8 Other nonspecific abnormal finding of lung field (principal); D47.2 Monoclonal gammopathy | CPT/HCPCS: 71250 ==

== ENCOUNTER 2024-04-18 06:40 | Day surgery (SDC) | payer MEDICARE, BC, SELFPAY ==
[2024-04-18] VITALS (14 sets, daily range): BP systolic 95–144; BP diastolic 47–110; BMI 31.8
--- NOTE | 2024-04-18 16:00 | W.PN.UPDATE ---
Update Note
Progress Note Update
Of note, during bronchoscopy, there was a white fluid that was suctioned from behind the BUDDY mass. No lymph node biopsies done as station 7, 4L, 4R and 11R appeared normal.
[2024-04-18] MEDS: DUONEB 3 ML INH (17:58)
== END 2024-04-18 20:20 | disposition home or self-care (01) ==
LOC: SDS 06:40
PROVIDERS: ATTENDING PHYSICIAN Internal Medicine Critical Care Medicine
DX: C34.12 Malignant neoplasm of upper lobe, left bronchus or lung (principal); R05.3 Chronic cough; R06.02 Shortness of breath; R22.2 Localized swelling, mass and lump, trunk; R91.8 Other nonspecific abnormal finding of lung field; R93.89 Abnormal findings on diagnostic imaging of other specified body structures; J98.4 Other disorders of lung
CPT/HCPCS: 31629; 31625; 31624; 31623; 31654; 88173; 88305; 71045; 81459; 87015; 87070; 87102; 87116; 87205; 88112; 88333; 88341; 88342; 88360; 94640

== ENCOUNTER → 2024-05-13 16:26 | Outpatient (REF) | payer MEDICARE, BC, SELFPAY | LOC: MRI 3T 16:26 | PROVIDERS: ATTENDING PHYSICIAN Internal Medicine Hematology & Oncology; FAMILY PHYSICIAN Internal Medicine | DX: D47.2 Monoclonal gammopathy (principal); R91.8 Other nonspecific abnormal finding of lung field; C34.12 Malignant neoplasm of upper lobe, left bronchus or lung | CPT/HCPCS: 70553; A9575 ==

== ENCOUNTER 2024-06-11 03:48 | Inpatient (IN) | payer MEDICARE, BC, SELFPAY ==
[2024-06-10 21:14] VITALS: BP 132/53
[2024-06-10 21:37] VITALS: BP 117/59
[2024-06-10 21:51] VITALS: BMI 31.9
[2024-06-10 22:00] VITALS: BP 121/58
[2024-06-10 22:03] LABS: % Basophils 0.3 % (0-2); % Eosinophils 0.3 % (0-6); % Immature Granulocytes 0.8 % (0-0.5); % Lymphocytes 5.3 % (20.5-51.1); % Monocytes 4.3 % (1.7-9.3); Absolute Immature Granulocytes 0.1 10^3/uL (0-0.05); Absolute Lymphocytes 0.3 10^3/uL (1.2-3.4); Absolute Monocytes 0.3 10^3/uL (0.1-0.6); Absolute Neutrophils 5.6 10^3/uL (1.4-6.5); Hematocrit 32.2 % (37.0-47.0); Hemoglobin 10.9 g/dL (12.0-16.0); Mean Corp Hgb Conc. 33.9 g/dL (33.0-37.0); Mean Corpuscular Hgb 33.2 pg (27.0-31.0); Mean Corpuscular Volume 98.2 fL (81.0-99.0); Mean Platelet Volume 10.1 fL (7.4-10.4); Nucleated Red Blood Cells % 0 %; Platelet Count 238 10^3/uL (130-400); Red Blood Cell Count 3.28 10^6/uL (4.20-5.40); Red Cell Dist. Width 14.5 % (11.5-14.5); Urine Albumin 2+ (Neg - Trace); Urine Bilirubin Negative (Negative); Urine Character Cloudy (Clear); Urine Color Yellow; Urine Glucose 1+ (Negative); Urine Ketone Negative (Negative); Urine Leukocyte 3+ (Negative); Urine Nitrite Positive (Negative); Urine Occult Blood 2+ (Negative); Urine Urobilinogen Negative (Neg - 1+); White Blood Cell Count 6.3 10^3/uL (4.8-10.8)
[2024-06-10 22:12] LABS: Urine Squamous Cell None seen /LPF (Few)
[2024-06-10 22:13] LABS: Urine White Cell >100 /HPF (0-5)
[2024-06-10 22:15] LABS: Urine Bacteria Many (Negative)
[2024-06-10 22:22] LABS: ALT (SGPT) 12 U/L (0-35); AST (SGOT) 17 U/L (14-36); Albumin 3.5 g/dl (3.5-5.0); Alkaline Phosphatase 66 U/L (38-126); Blood Urea Nitrogen 31 mg/dl (7-17); Calcium 8.7 mg/dl (8.4-10.2); Carbon Dioxide 20 mmol/L (22-30); Chloride 108 mmol/L (98-107); Estimated Creatinine Clearance 32 ml/min; Glucose 156 mg/dl (70-99); Potassium 5.1 mmol/L (3.5-5.1); Sodium 137 mmol/L (135-145); Total Bilirubin 0.8 mg/dl (0.2-1.3); eGFR 46.62
[2024-06-10 23:00] VITALS: BP 106/62
--- NOTE | 2024-06-10 23:01 | ED.GENMED ---
History of Present Illness
General
Chief Complaint: Abdominal Pain
Time Seen by Provider: 06/10/24 22:12
History of Present Illness
History of Present Illness:
78-year-old female with history of right transplant kidney on antirejection medications, history of frequent UTIs, chronic indwelling Murphy, recently diagnosed lung cancer, history of spina bifida, rheumatoid arthritis presenting to the emergency
department for concern of UTI. Patient reports for the past few days she has been having some slight discomfort at the right kidney, which she feels is consistent with prior kidney infections. She notes resistance to multiple antibiotics. Does
note some chills. Also recently diagnosed with lung cancer, has not pursuing treatment, however does note some shortness of breath. Denies any present chest pain. Does report a chronic cough. Reports that her Murphy catheter was changed about 2
weeks ago. Denies any vomiting. Denies additional acute medical complaints
Past History
Past History
ED Past Medical History: CAD, HTN, Renal failure, Other (Osteoma rheumatoid arthritis), Other (Spina bifida) and Other (ESRD s/p renal transplant 1979, Neurogenic bladder, chronic urinary tract infections, pyelonephritis, proteinuria, osteoporosis,
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
ED Past Surgical History: Appendectomy, Bowel resection, Orthopedic (Left knee replacement, Sandeep left femur), Tonsilectomy and Other (Kidney transplant R kidney only)
Social History
Tobacco: Former smoker
Alcohol: Occasional
Drug: None
Personal:
Living: with family
Employment: Not employed
Family History
Family History: Other
Phy Exam
Physical Exam
Physical Exam:
General: Well-appearing, no clinical signs of dehydration, nontoxic and in no acute distress
HEENT: protecting airway
Neck: appears supple
CV: Normal heart rate, regular rhythm
Resp: No accessory muscle use, no increased work of breathing, lungs clear to auscultation bilaterally
Abd: Soft and non-distended, no tenderness to palpation
Extremities: No deformities, no swelling, no erythema
Neuro: alert, no focal neurologic deficit
: deferred
Rectal: deferred
Psych: Normal affect
Skin: Intact
Course
Orders/Labs/Results
Orders:
Orders
06/10/24 21:52
CMP [Comprehensive Metabolic Panel] Urgent
Complete Blood Count/With Diff Urgent
Urinalysis Reflex To Culture Urgent
Date Specimen was Collected: 06/10/24
Time Specimen was Collected: 21:50
Urine Microscopic Reflex Cult Urgent
Urine Culture Urgent
[facility] Source: U
Specimen Description:
Date Specimen was Collected: 06/10/24
Time Specimen was Collected: 21:50
06/10/24 22:42
CR Chest - 2 Views Urgent
Comment:
Reason For Exam: SOB
Abnormal Lab Results
06/10/24
21:52
RBC 3.28 L 10^6/uL
(4.20-5.40)
Hgb 10.9 L g/dL
(12.0-16.0)
Hct 32.2 L %
(37.0-47.0)
MCH 33.2 H pg
(27.0-31.0)
Abs Immat Gran (auto) 0.1 H 10^3/uL
(0-0.05)
Absolute Lymphs (auto) 0.3 L 10^3/uL
(1.2-3.4)
Immature Gran % 0.8 H %
(0-0.5)
Neutrophils % 89.0 H %
(42.2-75.2)
Lymphocytes % 5.3 L %
(20.5-51.1)
Chloride 108 H mmol/L
(98-107)
Carbon Dioxide 20 L mmol/L
(22-30)
BUN 31 H mg/dl
(7-17)
Creatinine 1.2 H mg/dL
(0.6-1.0)
Glucose 156 H mg/dl
(70-99)
Total Protein 6.0 L g/dl
(6.3-8.2)
Ur Occult Blood Reflex 2+ A
(Negative)
Urine Nitrite (Reflex) Positive A
(Negative)
Leukocyte Esterase Rfl 3+ A
(Negative)
Urine RBC 7-10 A /HPF
(0-2)
Urine WBC (Reflex) >100 A /HPF
(0-5)
Urine Bacteria (Reflex) Many A
(Negative)
Urine Glucose 1+ A
(Negative)
Urine Albumin (Reflex) 2+ A
(Neg - Trace)
06/10/24 21:52
06/10/24 21:52
Vital Signs
Initial and Last Documented VS:
Initial Vital Signs
Temp Pulse Resp BP Pulse Ox
98.1 F 94 18 132/53 97
06/10/24 21:14 06/10/24 21:14 06/10/24 21:14 06/10/24 21:14 06/10/24 21:14
Last Documented Vital Signs
Temp Pulse Resp BP Pulse Ox
98.1 F 94 18 117/59 96
06/10/24 21:14 06/10/24 21:14 06/10/24 21:14 06/10/24 21:37 06/10/24 21:55
MDM/Problems Addressed
MDM/Problems Addressed:
78-year-old female with history of right transplant kidney on antirejection medications, history of frequent UTIs, chronic indwelling Murphy, recently diagnosed lung cancer, history of spina bifida, rheumatoid arthritis presenting for concern of
urinary tract infection with some right-sided discomfort. Vital signs are well normal.
On exam patient is resting comfortably, no acute distress or discomfort. Unremarkable cardiac and pulmonary exam. Patient does note some dyspnea however, lungs clear to auscultation. Suspect likely secondary to new diagnosis of lung cancer,
currently not undergoing any treatment. Will screen with chest x-ray imaging. Regarding concern for UTI. Patient has chronic indwelling Murphy, urine appears clear. Will change Murphy and send urinalysis. Will screen with laboratory analysis. No
tenderness to abdomen, no CVA tenderness without concern for severe intra-abdominal process, patient nontoxic.
23:15 - Urine is positive for infection. On review of prior cultures, patient does have multiple resistances. Given her known history of transplant kidney with some CKD, will plan for IV antibiotics and admission
*Critical Care Note
Total Time (30-74mins, 75-104mins- exclusive of procedures): Not Applicable
ED Attending Note
-
Portions of this chart may have been created with voice recognition software.� Occasional wrong word or��sound alike� substitutions may have occurred due to the inherent limitations of voice recognition software.
Discharge Plan
Departure
Prescriptions:
No Action
prednisone 10 MG tablet
10 mg PO Q48H
lisinopril 5 MG tablet
5 mg PO HS
sennosides-docusate sodium [Colace 2-In-1] 8.6-50 mg Tablet
1 tab-cap PO Q72H
acetaminophen [Tylenol Extra Strength] 500 mg Tablet
1,000 mg PO Q6HPRN PRN (Reason: mild pain/CRESPO/temp>100.4F)
methenamine hippurate 1 gram Tablet
1 g PO HS
bisacodyl 5 mg Tablet
10 mg PO Q72H
cholecalciferol (vitamin D3) 25 mcg (1,000 unit) Tablet
25 mcg PO DAILY
Ocusoft
1 spray BOTH EYES BID
albuterol sulfate 90 mcg/actuation HFA aerosol inhaler
2 puff inhalation QID PRN (Reason: shortness of breath or wheezing) Qty: 8.5 0RF
triamcinolone acetonide [Nasacort] 55 mcg aerosol,spray
1 spray intranasal DAILY Qty: 16.9 0RF
azathioprine [Imuran] 50 mg Tablet
50 mg PO DAILY
Vitamin B-12
1,000 units PO DAILY
Referrals:
Denisse Salmon MD [Family Provider] -
Interventions
Interventions:
*Risk Screen - Suicide Last Done: 06/10/24 21:14
*General Assessment Last Done: 06/10/24 21:14
*Neglect/Abuse Screening Last Done: 06/10/24 21:14
*ED- Fall Risk Assessment Last Done: 06/10/24 21:55
*ED COVID-19 Vaccine History Last Done: 06/10/24 21:55
JZ-Efznvn-Ebrnscxhfb Assessment Last Done: 06/10/24 21:55
ED- Pulmonary Assessment Last Done: 06/10/24 21:55
Discharge Date and Time
Print Language: TURKMEN
[2024-06-11] VITALS (7 sets, daily range): BP systolic 90–132; BP diastolic 43–65; BMI 31.3
[2024-06-11] MEDS: MAXIPIME 2000 MG IV (00:40)
--- NOTE | 2024-06-11 01:37 | HPS.HSE ---
Family Physician
-
Family Physician: Denisse Salmon
Chief Complaint
-
Abdominal pain, UTI
History of Present Illness
This is a 78-year-old female with past medical history of reflux nephropathy with end-stage renal disease status post kidney transplant living related donor about 46 years ago, spina bifida with congenital neurogenic bladder now on chronic
indwelling urinary catheter, recurrent urinary tract infections presenting to the emergency department with abdominal and pelvic pain reminiscent of prior UTIs.
Patient reports symptoms began about 2 days ago with sharp abdominal ache over the site of her transplanted kidney. She reported seeing some strands of pulse and clot in her urinary catheter the previous day. She denies having fevers or chills so
far. She denies having any nausea or vomiting. She denies any weakness. Currently takes a break. Has not been on any oral antibiotics recently but was admitted to the hospital in the last few months for a UTI.
Patient was recently diagnosed with lung cancer status post [facility] and pending follow-up evaluation by PMD and licensed certified orthotist to decide course of treatment.
In the emergency department she was afebrile, blood pressure was 106/60 with a pulse of 94 satting 98% on room air. CBC was unremarkable stop electrolytes BUN/creatinine were unchanged from prior. UA was markedly positive. Patient had the urinary
catheter exchanged in the ED.
Medical History
Past Medical History
Past Medical History: Reports Other
Additional Past Medical History:
neurogenic bladder
chronic kidney disease
kidney transplant
benign hypertension
rheumatoid arthritis
Recurrent squamous cell skin cancer
Spina bifida
Past Surgical History: Reports Other
Additional Past Surgical History:
Living related renal transplant right only(1978)
parathyroidectomy
tonsillectomy
appendectomy
spinal surgery
Multiple mohs procedures
Social History
Tobacco: Former Smoker (quit 20 years ago)
Alcohol: Occasional
Drug: None
Personal:
Living: With Family
Employment: Retired
Family History
Family History: Not pertinent
Allergies / Home Medications
Allergies reflects when Allergies were last updated in [facility].
Home Medications with original date entered in [facility]
Allergy/Medication List:
Allergies
Allergy/AdvReac Type Severity Reaction Status Date / Time
alendronate sodium Allergy constipatio Verified 03/23/23 18:44
[From Fosamax] n
aspirin [Aspirin] Allergy contraindicated Verified 03/23/23 18:44
with
transplant
meds
azithromycin [From Zithromax] Allergy contraindicated Verified 03/23/23 18:44
with
transplant
meds
aztreonam [From Azactam] Allergy Swelling/RE Verified 03/23/23 18:44
DNESS/FLUSH
ING
doxycycline Allergy Hives Verified 03/23/23 18:44
influenza virus vaccine, Allergy high Verified 03/23/23 18:44
specific fever,ache
[Influenza Virus all over
Vacc,Specific] pt states
doesnt
want it
again
levofloxacin [From Levaquin] Allergy Vomiting Verified 03/23/23 18:44
NSAIDS (Non-Steroidal Allergy contraindicated Verified 03/23/23 18:44
Anti-Inflamma with
[Nsaids] transplant
meds
Penicillins Allergy has Verified 03/23/23 18:44
tolerated
cefepime,
ceftriaxone,
cephalexin
tetracycline [Tetracycline] Allergy contraindicated Verified 03/23/23 18:44
with
transplant
meds
Home Medications
prednisone 10 mg tablet 10 mg PO Q48H Transplant 08/23/12
azathioprine 50 mg tablet 50 mg PO DAILY rheumatoid arthritis 12/28/12
cyanocobalamin (vitamin B-12) 1,000 mcg tablet 500 mcg PO DAILY Supplement 07/07/17
lisinopril 5 mg tablet 5 mg PO HS Blood pressure 07/07/17
acetaminophen 500 mg tablet (Tylenol Extra Strength) 1,000 mg PO Q6H PRN mild pain/CRESPO/temp>100.4F 01/10/23
bisacodyl 5 mg tablet 10 mg PO Q72H 01/10/23
cholecalciferol (vitamin D3) 25 mcg (1,000 unit) tablet 25 mcg PO DAILY 01/10/23
fluocinonide 0.05 % topical ointment 1 applic topical BID apply to right hand surgical sites 01/10/23
methenamine hippurate 1 gram tablet 1 g PO HS 01/10/23
sennosides 8.6 mg-docusate sodium 50 mg tablet (Colace 2-In-1) 1 tab-cap PO Q72H 01/10/23
tramadol 25 mg tablet 25 mg PO TIDPRN PRN Pain #14 tabs 03/24/23
Review of Systems
-
Constitutional: Reports No Symptoms
EENT: Reports No Symptoms
Respiratory: Reports No Symptoms
Cardiac: Reports No Symptoms
Abdomen/GI: Reports Abdominal Pain
: Reports No Symptoms
Musculoskeletal: Reports No Symptoms
Skin: Reports No Symptoms
Neurological: Reports No Symptoms
Endocrine: Reports No Symptoms
Hematologic/Lymphatic: Reports No Symptoms
Psych: Reports No Symptoms
Physical Exam
Vital Signs
Vital Signs
Temp Pulse Resp BP Pulse Ox
98.1 F 94 18 126/57 95
06/10/24 21:14 06/10/24 21:14 06/10/24 21:14 06/11/24 01:00 06/11/24 01:00
Physical Exam
General: Well Developed, Well Nourished, No Apparent Distress and Comfortable
HEENT: NormoCephalic, Anicteric, Moist mucous membranes and Atraumatic
Respiratory: Clear
Cardiac: S1/S2 and Regular Rhythm
Breast: Deferred by me
GI: Soft, Non Tender, Non Distended and Normal Bowel Sounds
Rectal: Deferred by Provider
Genito-urinary: Clear Urine, No costovertebral tender and Grady
Musculoskeletal: No Clubbing, No Cyanosis and No Edema
Skin: Warm and Dry
Neuro: AO x 3 and Nonfocal/grossly intact
Hematologic/Lymphatic: No Lymphadenopathy
Psych: Calm
Laboratory Results
-
06/10/24 21:52
06/10/24 21:52
Laboratory Results
Total Bilirubin 0.8 mg/dl (0.2-1.3) 06/10/24 21:52
AST 17 U/L (14-36) 06/10/24 21:52
ALT 12 U/L (0-35) 06/10/24 21:52
Alkaline Phosphatase 66 U/L (38-126) 06/10/24 21:52
Data Reviewed
-
Lab Data: Labs Reviewed by me
Old Records: Reviewed
Impression/Plan
-
IMPRESSION:
This is a well-appearing 76-year-old female with past medical history of end-stage renal disease status post living related kidney transplant currently on immunosuppression with azathioprine and prednisone, chronic indwelling urinary catheter
secondary to chronic neurogenic bladder with recurrent UTIs, recent diagnosis of lung cancer not currently on treatment, here with abdominal pain and found to have + u/a similar to prior. High risk patient.
PLAN:
Complicated UTI - Cannot rule out transplant pyelonephritis, h/o resistant serratia, pseudomonas
- admit to med/surg
- urine cultures
- based on prior cultures, cefepime, usually treated for 3 days and discharged
- monitor for fevers, hold hippurate for now
Kidney Tx
- continue azathioprine 50mg daily
- continue prednisone 10mg every other day starting thursday
DVT PPX - heparin sq
Code status - Full Code
[2024-06-11] MEDS: TYLENOL 1000 MG PO ×3 (04:22→22:49)
[2024-06-11 07:28] LABS: Hemoglobin 9.3 g/dL (12.0-16.0); Mean Corp Hgb Conc. 34.4 g/dL (33.0-37.0); Mean Corpuscular Hgb 33.7 pg (27.0-31.0); Mean Corpuscular Volume 97.8 fL (81.0-99.0); Mean Platelet Volume 10.8 fL (7.4-10.4); Platelet Count 214 10^3/uL (130-400); Red Blood Cell Count 2.76 10^6/uL (4.20-5.40); Red Cell Dist. Width 14.6 % (11.5-14.5); White Blood Cell Count 6.4 10^3/uL (4.8-10.8)
[2024-06-11 07:58] LABS: Blood Urea Nitrogen 31 mg/dl (7-17); Calcium 8.1 mg/dl (8.4-10.2); Carbon Dioxide 18 mmol/L (22-30); Chloride 111 mmol/L (98-107); Estimated Creatinine Clearance 31 ml/min; Glucose 83 mg/dl (70-99); Potassium 4.6 mmol/L (3.5-5.1); Sodium 139 mmol/L (135-145); eGFR 46.62
[2024-06-11] MEDS: STERILE WATER FOR INJECTION 10 ML IV ×3 (09:20→23:01)
[2024-06-11] MEDS: MAXIPIME 1000 MG IV ×3 (09:20→23:01)
[2024-06-11] MEDS: HEPARIN 5000 UNITS SC ×3 (09:20→23:02)
[2024-06-11] MEDS: VITAMIN D3 (cholecalciferol) 25 MCG PO (09:21)
[2024-06-11] MEDS: VITAMIN B-12 500 MCG PO (09:21)
[2024-06-11] MEDS: IMURAN 50 MG PO (10:01)
--- NOTE | 2024-06-11 14:10 | W.PN.HOSP.TC ---
Addendum entered and electronically signed by Nadir Baker MD 06/11/24 14:19:
Blood Cx not drawn at time of admission
Original Note:
Today's Communication/Plan
-
Continue Cefepime
ID consult
Assessment / Plan
Assessment / Plan
This is a well-appearing 76-year-old female with past medical history of end-stage renal disease status post living related kidney transplant currently on immunosuppression with azathioprine and prednisone, chronic indwelling urinary catheter
secondary to chronic neurogenic bladder with recurrent UTIs, recent diagnosis of lung cancer not currently on treatment, here with abdominal pain and found to have + u/a similar to prior. High risk patient.
PLAN:
CAUTI
Complicated UTI - Cannot rule out transplant pyelonephritis, h/o resistant serratia, pseudomonas
- admit to med/surg
- urine cultures pending
- based on prior cultures, cefepime, usually treated for 3 days and discharged
- monitor for fevers, hold hippurate for now
-ID consult to be requested
Kidney Tx
- continue azathioprine 50mg daily
- continue prednisone 10mg every other day starting thursday
Recent dx of Lung Cancer
not yet started on therapy
DVT PPX - heparin sq
Code status - Full Code
Anticipated Discharge: > 48 hours
Subjective/Interval History
-
Date of Service: June 11, 2024
Awake, alert, conversant
Objective Data
-
Labs:
Laboratory Results
06/11/24
05:59
WBC 6.4
Hgb 9.3 L
Hct 27.0 L
Plt Count 214
Sodium 139
Potassium 4.6
Chloride 111 H
Carbon Dioxide 18 L
BUN 31 H
Creatinine 1.2 H
Glucose 83
Calcium 8.1 L
Vital Signs:
Vital Signs
Temp Pulse Resp BP Pulse Ox
98 F 72 16 90/43 94
06/11/24 07:00 06/11/24 07:00 06/11/24 07:00 06/11/24 07:00 06/11/24 07:00
I&O
06/10/24 06/11/24 06/12/24
06:59 06:59 06:59
Output Total 250 / 250
Balance -250 / -250
Review of Systems
-
History Source: Patient
Constitutional: Denies Fever
EENT: Reports No Symptoms Reported
Respiratory: Reports No Symptoms; Denies Cough
Cardiac: Reports No Symptoms; Denies Chest Pain
Abdomen/GI: Reports Abdominal Pain (better)
Genitourinary: Reports Other (chronic murphy)
Neuro: Reports No Symptoms
Physical Exam
-
General: Well Developed, Well Nourished and No Apparent Distress
HEENT: Normocephalic, Atraumatic and Moist Mucous Membranes
Respiratory: Clear to Auscultation; Negative Wheezes, Rales or Rhonchi
Cardiac: Regular Rhythm and S1/S2
GI: Soft, Nontender, Nondistended and Normal Bowel Sounds
Genito-urinary: No Costovertebral Tender and Murphy
Musculoskeletal: No Clubbing, No Cyanosis and No Edema
Skin: Warm and Dry
Neuro: Awake, Alert and Oriented
--- NOTE | 2024-06-11 15:25 | CON.ID ---
Consultation
-
Date/Time Consultation Requested: June 11, 2024 1408
Date/Time Consultation Performed: June 11, 2024 1530
Requesting Provider: Dr. Nadir Baker
Performing Provider: Dr. Emy Leone
Reason for Consultation: UTI
Chief Complaint / Past History
Chief Complaint
Transplant kidney discomfort
History of Present Illness
78 yo female with significant past medical history of spina bifida, renal transplant, neurogenic bladder chronic Grady catheter, recurrent UTIs for which she follows with Dr. Arredondo, recent diagnosis of left lung adenocarcinoma with metastases
to thoracic spine and left fourth rib, has not started chemotherapy yet who presented to the hospital yesterday due to discomfort over the right lower quadrant where her transplanted kidney is located. She also complains of headache which is often
associated with UTI. Dr. Arredondo placed her on methenamine which did reduce the frequency of her UTIs. ED changed to Grady. Urine culture pending. She is currently on cefepime. Abdominal discomfort improved today.
Past History
Additional Past Medical History:
Recent dx of lung adenocarcinoma with mets to T10, T11 and left 4th rib
Renal transplant
CAD
HTN
Rheumatoid arthritis
Spina bifida
Neurogenic bladder with chronic Grady catheter
Bilateral nephrectomy
Hx ileal conduit with reversal
Left femur ORIF
Left total knee replacement
Allergy History:
alendronate sodium [From Fosamax] Allergy (Verified 04/18/24 13:23)
constipation
aspirin [Aspirin] Allergy (Verified 04/18/24 13:23)
contraindicated with transplant meds
azithromycin [From Zithromax] Allergy (Verified 04/18/24 13:23)
contraindicated with transplant meds
aztreonam [From Azactam] Allergy (Verified 04/18/24 13:23)
Swelling/REDNESS/FLUSHING
doxycycline Allergy (Verified 04/18/24 13:23)
Hives
influenza virus vaccine, specific [Influenza Virus Vacc,Specific] Allergy (Verified 04/18/24 13:23)
high fever,ache all over pt states doesnt want it again
levofloxacin [From Levaquin] Allergy (Verified 04/18/24 13:23)
Vomiting
NSAIDS (Non-Steroidal Anti-Inflamma [Nsaids] Allergy (Verified 04/18/24 13:23)
contraindicated with transplant meds
Penicillins Allergy (Verified 04/18/24 13:23)
has tolerated cefepime, ceftriaxone, cephalexin
tetracycline [Tetracycline] Allergy (Verified 04/18/24 13:23)
contraindicated with transplant meds
Medications Reviewed: Yes
Current Antibiotics:
None
Social History
Tobacco: Former Smoker
Alcohol: None
Drug: None
Personal:
Living: With Family
Employment: Not Employed
Family History
Family History: Not Pertinent
Review of Systems
Review of Systems
General: Chills; Negative Fever
HEENT: Headache; Negative Stiff Neck or Sinus Problems
Cardiovascular: Negative Chest Pain or Dyspnea
Respiratory: Cough (chronic due to lung cancer); Negative Dyspnea
Gasteroenterology: Negative Nausea, Vomiting or Diarrhea
Genital / Urological: Negative Flank Pain
Endocrine: Weakness
All systems: All other systems were reviewed and were negative
Vital Signs
Temp Pulse Resp BP Pulse Ox
98 F 72 16 90/43 94
06/11/24 07:00 06/11/24 07:00 06/11/24 07:00 06/11/24 07:00 06/11/24 09:00
Physical Exam
Physical Exam
Constitutional: No Acute Distress and Comfortable
Eyes: No Conjunctival Hemorrhage and Sclera Anicteric
Cardiovascular: Regular Rate and S1/S2
Pulmonary: Clear
Gastrointestinal: Soft, Non Tender, Non Distended and Normal Bowel Sounds
Genito-Urinary: Other (RLQ transplant renal site mild tenderness.); Negative CVA Tenderness
Extremities: Negative Edema
Neurological: AO x 3
Lab / Diagnostic Study Results
06/11/24 05:59
06/11/24 05:59
Abs Immat Gran (auto) 0.1 10^3/uL (0-0.05) H 06/10/24 21:52
Absolute Neuts (auto) 5.6 10^3/uL (1.4-6.5) 06/10/24 21:52
Absolute Lymphs (auto) 0.3 10^3/uL (1.2-3.4) L 06/10/24 21:52
Absolute Monos (auto) 0.3 10^3/uL (0.1-0.6) 06/10/24 21:52
Absolute Basos (auto) 0.0 10^3/uL (0-0.2) 06/10/24 21:52
Immature Gran % 0.8 % (0-0.5) H 06/10/24 21:52
Neutrophils % 89.0 % (42.2-75.2) H 06/10/24 21:52
Lymphocytes % 5.3 % (20.5-51.1) L 06/10/24 21:52
Monocytes % 4.3 % (1.7-9.3) 06/10/24 21:52
Eosinophils % 0.3 % (0-6) 06/10/24 21:52
Basophils % 0.3 % (0-2) 06/10/24 21:52
Ur Squamous Epith Cells None seen /LPF (Few) 06/10/24 21:52
Microbiology Results
Micro:
06/10/24 21:52 Urine Culture - Pending
Urine
Assessment / Plan
# Symptomatic CAUTI
# renal transplant status
# Multiple abx intolerance vs interaction with transplant meds
- Grady changed in ED
- Agree with cefepime pending urine cx data.
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
- No indication to treat.
# Recent dx of lung adenocarcinoma with mets to T10, T11 and left 4th rib
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
Recent dx of lung adenocarcinoma with mets to T10, T11 and left 4th rib
Renal transplant
CAD
HTN
Rheumatoid arthritis
Spina bifida
Neurogenic bladder with chronic Grady catheter
Recurrent UTI on methenamine
Bilateral nephrectomy
Hx ileal conduit with reversal
Left femur ORIF
Left total knee replacement
[2024-06-11] MEDS: ZESTRIL 5 MG PO (22:49)
[2024-06-12 06:00] VITALS: BMI 31.1
[2024-06-12 06:41] LABS: % Basophils 0.5 % (0-2); % Eosinophils 4.3 % (0-6); % Immature Granulocytes 1.4 % (0-0.5); % Monocytes 5.1 % (1.7-9.3); % Neutrophils 74.7 % (42.2-75.2); Absolute Eosinophils 0.3 10^3/uL (0-0.7); Absolute Immature Granulocytes 0.1 10^3/uL (0-0.05); Absolute Lymphocytes 0.8 10^3/uL (1.2-3.4); Absolute Monocytes 0.3 10^3/uL (0.1-0.6); Absolute Neutrophils 4.4 10^3/uL (1.4-6.5); Hematocrit 29.5 % (37.0-47.0); Hemoglobin 9.8 g/dL (12.0-16.0); Mean Corp Hgb Conc. 33.2 g/dL (33.0-37.0); Mean Corpuscular Hgb 33.2 pg (27.0-31.0); Nucleated Red Blood Cells % 0 %; Platelet Count 224 10^3/uL (130-400); Red Blood Cell Count 2.95 10^6/uL (4.20-5.40); Red Cell Dist. Width 14.7 % (11.5-14.5); White Blood Cell Count 5.8 10^3/uL (4.8-10.8)
[2024-06-12 07:00] VITALS: BP 111/60
[2024-06-12 07:16] LABS: Blood Urea Nitrogen 26 mg/dl (7-17); Calcium 8.5 mg/dl (8.4-10.2); Carbon Dioxide 19 mmol/L (22-30); Chloride 109 mmol/L (98-107); Estimated Creatinine Clearance 30 ml/min; Glucose 74 mg/dl (70-99); Potassium 4.6 mmol/L (3.5-5.1); Sodium 138 mmol/L (135-145); eGFR 46.62
[2024-06-12] MEDS: MAXIPIME 1000 MG IV ×3 (08:56→23:23)
[2024-06-12] MEDS: VITAMIN D3 (cholecalciferol) 25 MCG PO (08:57)
[2024-06-12] MEDS: VITAMIN B-12 500 MCG PO (08:57)
[2024-06-12] MEDS: IMURAN 50 MG PO (08:57)
[2024-06-12] MEDS: STERILE WATER FOR INJECTION 10 ML IV ×3 (08:57→23:23)
[2024-06-12] MEDS: DELTASONE 10 MG PO (08:57)
[2024-06-12] MEDS: HEPARIN 5000 UNITS SC ×3 (08:58→23:23)
[2024-06-12] MEDS: TYLENOL 1000 MG PO ×2 (09:20→22:11)
--- NOTE | 2024-06-12 12:58 | W.PN.HOSP.TC ---
Today's Communication/Plan
-
continue Cefepime awaiting Ur Cx results
Assessment / Plan
Assessment / Plan
This is a well-appearing 76-year-old female with past medical history of end-stage renal disease status post living related kidney transplant currently on immunosuppression with azathioprine and prednisone, chronic indwelling urinary catheter
secondary to chronic neurogenic bladder with recurrent UTIs, recent diagnosis of lung cancer not currently on treatment, here with abdominal pain and found to have + u/a similar to prior. High risk patient.
PLAN:
CAUTI
Complicated UTI - Cannot rule out transplant pyelonephritis, h/o resistant serratia, pseudomonas
- admit to med/surg
- urine cultures pending
- based on prior cultures, cefepime, usually treated for 3 days and discharged
- monitor for fevers, hold hippurate for now
-ID consult appreciated
Kidney Tx
- continue azathioprine 50mg daily
- continue prednisone 10mg every other day starting thursday
Recent dx of Lung Cancer
not yet started on therapy
DVT PPX - heparin sq
Code status - Full Code
Anticipated Discharge: 24 - 48 hours
Subjective/Interval History
-
Date of Service: June 12, 2024
Generally feeling better
Objective Data
-
Labs:
Laboratory Results
06/12/24
05:19
WBC 5.8
Hgb 9.8 L
Hct 29.5 L
Plt Count 224
Sodium 138
Potassium 4.6
Chloride 109 H
Carbon Dioxide 19 L
BUN 26 H
Creatinine 1.2 H
Glucose 74
Calcium 8.5
Vital Signs:
Vital Signs
Temp Pulse Resp BP Pulse Ox
98.1 F 74 16 111/60 93
06/12/24 07:00 06/12/24 09:53 06/12/24 09:53 06/12/24 07:00 06/12/24 09:53
I&O
06/11/24 06/12/24 06/13/24
06:59 06:59 06:59
Intake Total 1260 / 1260
Output Total 250 / 250 1550 / 1550
Balance -250 / -250 -290 / -290
Review of Systems
-
History Source: Patient
Constitutional: Denies Fever
EENT: Reports No Symptoms Reported
Respiratory: Reports No Symptoms; Denies Cough
Cardiac: Reports No Symptoms; Denies Chest Pain
Abdomen/GI: Reports Abdominal Pain (better)
Genitourinary: Reports Other (chronic murphy)
Neuro: Reports No Symptoms
Physical Exam
-
General: Well Developed, Well Nourished and No Apparent Distress
HEENT: Normocephalic, Atraumatic and Moist Mucous Membranes
Respiratory: Clear to Auscultation; Negative Wheezes, Rales or Rhonchi
Cardiac: Regular Rhythm and S1/S2
GI: Soft, Nontender, Nondistended and Normal Bowel Sounds
Genito-urinary: No Costovertebral Tender and Murphy
Musculoskeletal: No Clubbing, No Cyanosis and No Edema
Skin: Warm and Dry
Neuro: Awake, Alert and Oriented
[2024-06-12 15:00] VITALS: BP 123/63
--- NOTE | 2024-06-12 15:00 | W.PN.ID1 ---
Date of Service
Date of Service: June 12, 2024
Today's Communication
Continue cefepime.
Assessment / Plan
# Symptomatic CAUTI
# renal transplant status
# Multiple abx intolerance vs interaction with transplant meds
- Grady changed in ED \\
- Ucx GNR
- Continue cefepime pending urine cx data.
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
- No indication to treat.
# Recent dx of lung adenocarcinoma with mets to T10, T11 and left 4th rib
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
Recent dx of lung adenocarcinoma with mets to T10, T11 and left 4th rib
Renal transplant
CAD
HTN
Rheumatoid arthritis
Spina bifida
Neurogenic bladder with chronic Grady catheter
Recurrent UTI on methenamine
Bilateral nephrectomy
Hx ileal conduit with reversal
Left femur ORIF
Left total knee replacement
Chief Complaint
-: UTI
Subjective / Review of Systems
Transplant kidney ache resolved.
Still with CRESPO.
Vital Signs / Physical Exam
Vital Signs
Vital Signs
Temp Pulse Resp BP Pulse Ox
98.1 F 74 16 111/60 93
06/12/24 07:00 06/12/24 09:53 06/12/24 09:53 06/12/24 07:00 06/12/24 14:03
Physical Exam
Constitutional: No Acute Distress and Comfortable
Cardiovascular: Regular Rate and S1/S2
Pulmonary: Clear
Gastrointestinal: Soft, Non Tender and Non Distended
Genito-Urinary: Grady, Clear Urine and Other (RLQ nontender)
Extremities: Negative Edema
Neurological: AO x 3
Objective Data
Lab Data
Lab Results
06/12/24 05:19
06/12/24 05:19
Estimated Creat Clear 30 ml/min 06/12/24 05:19
Total Bilirubin 0.8 mg/dl (0.2-1.3) 06/10/24 21:52
AST 17 U/L (14-36) 06/10/24 21:52
ALT 12 U/L (0-35) 06/10/24 21:52
Alkaline Phosphatase 66 U/L (38-126) 06/10/24 21:52
Most recent labs reviewed.
Micro Results:
06/10/24 21:52 Urine Culture - Preliminary
Urine
[2024-06-12] MEDS: ZESTRIL 5 MG PO (22:11)
[2024-06-12 23:00] VITALS: BP 94/48
[2024-06-13 07:05] VITALS: BP 99/52
[2024-06-13] MEDS: HEPARIN 5000 UNITS SC ×3 (08:44→23:41)
[2024-06-13] MEDS: VITAMIN B-12 500 MCG PO (08:46)
[2024-06-13] MEDS: STERILE WATER FOR INJECTION 10 ML IV ×3 (08:48→23:43)
[2024-06-13] MEDS: VITAMIN D3 (cholecalciferol) 25 MCG PO (08:48)
[2024-06-13] MEDS: IMURAN 50 MG PO (08:48)
[2024-06-13] MEDS: MAXIPIME 1000 MG IV ×3 (08:48→23:43)
--- NOTE | 2024-06-13 11:46 | W.PN.HOSP.TC ---
Today's Communication/Plan
-
continue Cefepime for now
recheck labs in AM
Assessment / Plan
Assessment / Plan
This is a well-appearing 76-year-old female with past medical history of end-stage renal disease status post living related kidney transplant currently on immunosuppression with azathioprine and prednisone, chronic indwelling urinary catheter
secondary to chronic neurogenic bladder with recurrent UTIs, recent diagnosis of lung cancer not currently on treatment, here with abdominal pain and found to have + u/a similar to prior. High risk patient.
PLAN:
CAUTI
Complicated UTI - Cannot rule out transplant pyelonephritis, h/o resistant serratia, pseudomonas
- admit to med/surg
- urine cultures negative
UA very consistent with UTI, discussed with Dr. Leone, will continue IV abx for now and plan transition to oral abx tomorrow
- based on prior cultures, cefepime, usually treated for 3 days and discharged
- monitor for fevers, hold hippurate for now
-ID consult appreciated
Kidney Tx
- continue azathioprine 50mg daily
- continue prednisone 10mg every other day starting thursday
Recent dx of Lung Cancer
not yet started on therapy
DVT PPX - heparin sq
Code status - Full Code
Anticipated Discharge: Within 24 hours
Subjective/Interval History
-
Date of Service: June 13, 2024
Feeling generally better
Objective Data
-
Vital Signs:
Vital Signs
Temp Pulse Resp BP Pulse Ox
97.8 F 68 18 99/52 96
06/13/24 07:05 06/13/24 07:05 06/13/24 07:05 06/13/24 07:05 06/13/24 09:00
I&O
06/12/24 06/13/24 06/14/24
06:59 06:59 06:59
Intake Total 1260 / 1260 960 / 960 850 / 850
Output Total 1550 / 1550 1100 / 1100
Balance -290 / -290 -140 / -140 850 / 850
Review of Systems
-
History Source: Patient
Constitutional: Denies Fever
EENT: Reports No Symptoms Reported
Respiratory: Reports No Symptoms; Denies Cough
Cardiac: Reports No Symptoms; Denies Chest Pain
Abdomen/GI: Reports Abdominal Pain (better)
Genitourinary: Reports Other (chronic muprhy)
Neuro: Reports No Symptoms
Physical Exam
-
General: Well Developed, Well Nourished and No Apparent Distress
HEENT: Normocephalic, Atraumatic and Moist Mucous Membranes
Respiratory: Clear to Auscultation; Negative Wheezes, Rales or Rhonchi
Cardiac: Regular Rhythm and S1/S2
GI: Soft, Nontender, Nondistended and Normal Bowel Sounds
Genito-urinary: No Costovertebral Tender and Murphy
Musculoskeletal: No Clubbing, No Cyanosis and No Edema
Skin: Warm and Dry
Neuro: Awake, Alert and Oriented
--- NOTE | 2024-06-13 13:15 | W.PN.ID1 ---
Date of Service
Date of Service: June 13, 2024
Today's Communication
- Continue cefepime (d4)
- At time of discharge, transition to cipro 250mg po bid through 06/16/24.
Assessment / Plan
# Symptomatic CAUTI
# renal transplant status
# Multiple abx intolerance vs interaction with transplant meds
- Grady changed in ED
- Ucx >100k mixed chago
- Continue cefepime (d4)
- At time of discharge, transition to cipro 250mg po bid through 06/16/24.
Check baseline QTc in am.
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
- No indication to treat.
# Recent dx of lung adenocarcinoma with mets to T10, T11 and left 4th rib
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
Recent dx of lung adenocarcinoma with mets to T10, T11 and left 4th rib
Renal transplant
CAD
HTN
Rheumatoid arthritis
Spina bifida
Neurogenic bladder with chronic Grady catheter
Recurrent UTI on methenamine
Bilateral nephrectomy
Hx ileal conduit with reversal
Left femur ORIF
Left total knee replacement
Chief Complaint
-: UTI
Subjective / Review of Systems
Feels good today. No CRESPO. No kidney pain.
Vital Signs / Physical Exam
Vital Signs
Vital Signs
Temp Pulse Resp BP Pulse Ox
97.8 F 68 18 99/52 96
06/13/24 07:05 06/13/24 07:05 06/13/24 07:05 06/13/24 07:05 06/13/24 09:00
Physical Exam
Constitutional: No Acute Distress and Comfortable
Cardiovascular: Regular Rate and S1/S2
Pulmonary: Clear
Gastrointestinal: Soft, Non Tender and Non Distended
Genito-Urinary: Grady, Clear Urine and Other (RLQ nontender)
Extremities: Negative Edema
Neurological: AO x 3
Objective Data
Lab Data
Lab Results
06/12/24 05:19
06/12/24 05:19
Estimated Creat Clear 30 ml/min 06/12/24 05:19
Total Bilirubin 0.8 mg/dl (0.2-1.3) 06/10/24 21:52
AST 17 U/L (14-36) 06/10/24 21:52
ALT 12 U/L (0-35) 06/10/24 21:52
Alkaline Phosphatase 66 U/L (38-126) 06/10/24 21:52
Most recent labs reviewed.
Micro Results:
06/10/24 21:52 Urine Culture - Final
Urine
Care Review
Plan reviewed with: Physician (Dr. Baker)
[2024-06-13 15:05] VITALS: BP 104/57
[2024-06-13] MEDS: TYLENOL 1000 MG PO (15:13)
[2024-06-13] MEDS: ZESTRIL 5 MG PO (22:37)
[2024-06-13 23:33] VITALS: BP 105/52
[2024-06-14] MEDS: TYLENOL 1000 MG PO (00:16)
[2024-06-14 06:36] LABS: % Basophils 1.2 % (0-2); % Eosinophils 6.1 % (0-6); % Immature Granulocytes 2.7 % (0-0.5); % Lymphocytes 14.8 % (20.5-51.1); % Monocytes 8.1 % (1.7-9.3); % Neutrophils 67.1 % (42.2-75.2); Absolute Basophils 0.1 10^3/uL (0-0.2); Absolute Eosinophils 0.4 10^3/uL (0-0.7); Absolute Immature Granulocytes 0.2 10^3/uL (0-0.05); Absolute Monocytes 0.5 10^3/uL (0.1-0.6); Absolute Neutrophils 4.3 10^3/uL (1.4-6.5); Hematocrit 29.1 % (37.0-47.0); Mean Corp Hgb Conc. 34.4 g/dL (33.0-37.0); Mean Corpuscular Hgb 33.2 pg (27.0-31.0); Mean Corpuscular Volume 96.7 fL (81.0-99.0); Mean Platelet Volume 11.1 fL (7.4-10.4); Nucleated Red Blood Cells % 0 %; Platelet Count 213 10^3/uL (130-400); Red Blood Cell Count 3.01 10^6/uL (4.20-5.40); Red Cell Dist. Width 14.6 % (11.5-14.5); White Blood Cell Count 6.4 10^3/uL (4.8-10.8)
[2024-06-14 06:56] LABS: Blood Urea Nitrogen 25 mg/dl (7-17); Calcium 9.1 mg/dl (8.4-10.2); Carbon Dioxide 22 mmol/L (22-30); Chloride 109 mmol/L (98-107); Estimated Creatinine Clearance 30 ml/min; Glucose 86 mg/dl (70-99); Potassium 5.2 mmol/L (3.5-5.1); Sodium 138 mmol/L (135-145); eGFR 46.62
[2024-06-14 07:05] VITALS: BP 110/56
--- NOTE | 2024-06-14 07:44 | PN.CDI ---
CDI
- -
CDI:
Physician Documentation Request
Admit Date: 06/11/24 03:48
Dear Doctor Tanya,
Please review the following and provide your response in the progress notes.
Clinical Indicators:
- 06/13 PN indicates kidney transplant
- currently on immunosuppression
- Current renal labs:
Laboratory Tests
06/10/24 06/12/24 06/14/24
21:52 05:19 05:37
Creatinine 1.2 H 1.2 H 1.2 H
eGFR 46.62 46.62 46.62
Please clarify the CKD stage which accurately represents the patient's current renal status
Stages of Chronic Kidney Disease*
Level Description GFR
G1 Normal or High >90
G2 Mildly decreased 60-89
G3a Mildly to moderately decreased 45-59
G3b Moderately to severely decreased 30-44
G4 Severely decreased 15-29
G5 Kidney failure <15
Use of terms such as suspected, likely, concern for, or probable (associated with a specific diagnosis that is being evaluated, monitored, or treated as if it exists) are acceptable and can be coded in the inpatient setting, when documented at the
time of discharge.
Thank you,
Fauzia Phan RN
CDI Specialist
Please use your independent medical judgment in providing your response.
*Source: Kidney Disease: Improving Global Outcomes (KDIGO) 2012
[2024-06-14] MEDS: VITAMIN B-12 500 MCG PO (08:07)
[2024-06-14] MEDS: MAXIPIME 1000 MG IV (08:08)
[2024-06-14] MEDS: VITAMIN D3 (cholecalciferol) 25 MCG PO (08:08)
[2024-06-14] MEDS: IMURAN 50 MG PO (08:08)
[2024-06-14] MEDS: DELTASONE 10 MG PO (08:08)
[2024-06-14] MEDS: HEPARIN 5000 UNITS SC (08:08)
[2024-06-14] MEDS: STERILE WATER FOR INJECTION 10 ML IV (08:09)
--- NOTE | 2024-06-14 10:25 | W.PN.HOSP.TC ---
Today's Communication/Plan
-
dc to home
Assessment / Plan
Assessment / Plan
This is a well-appearing 76-year-old female with past medical history of end-stage renal disease status post living related kidney transplant currently on immunosuppression with azathioprine and prednisone, chronic indwelling urinary catheter
secondary to chronic neurogenic bladder with recurrent UTIs, recent diagnosis of lung cancer not currently on treatment, here with abdominal pain and found to have + u/a similar to prior. High risk patient.
PLAN:
CAUTI
Complicated UTI - Cannot rule out transplant pyelonephritis, h/o resistant serratia, pseudomonas
- urine cultures negative
UA very consistent with UTI, discussed with Dr. Leone, continued IV abx and will now transition to oral cipro
EKG today demonstrates nl QT interval
- based on prior cultures, cefepime, usually treated for 3 days and discharged
- monitor for fevers, hold hippurate for now
-ID consult appreciated
Kidney Tx
- continue azathioprine 50mg daily
- continue prednisone 10mg every other day starting thursday
CKD G3a
Recent dx of Lung Cancer
not yet started on therapy. Discussed with Dr. Wallace, who came and visited patient
DVT PPX - heparin sq
Code status - Full Code
More than 30 minutes spent in discharge including
Final examination of the patient
Summarizing hospital stay
Instructions for continuing care to all relevant caregivers
Preparation of discharge records, prescriptions, and referral forms
Total time spent (in minutes): 45
Anticipated Discharge: Today
Subjective/Interval History
-
Date of Service: June 14, 2024
generally feels well
Objective Data
-
Labs:
Laboratory Results
06/14/24
05:37
WBC 6.4
Hgb 10.0 L
Hct 29.1 L
Plt Count 213
Sodium 138
Potassium 5.2 H
Chloride 109 H
Carbon Dioxide 22
BUN 25 H
Creatinine 1.2 H
Glucose 86
Calcium 9.1
Vital Signs:
Vital Signs
Temp Pulse Resp BP Pulse Ox
97.6 F 64 18 110/56 95
06/14/24 07:05 06/14/24 07:05 06/14/24 07:05 06/14/24 07:05 06/14/24 07:05
I&O
06/13/24 06/14/24 06/15/24
06:59 06:59 06:59
Intake Total 960 / 960 2530 / 2530
Output Total 1100 / 1100 2200 / 2200
Balance -140 / -140 330 / 330
Review of Systems
-
History Source: Patient
Constitutional: Denies Fever
EENT: Reports No Symptoms Reported
Respiratory: Reports No Symptoms; Denies Cough
Cardiac: Reports No Symptoms; Denies Chest Pain
Abdomen/GI: Reports Abdominal Pain (resolved)
Genitourinary: Reports Other (chronic murphy)
Neuro: Reports No Symptoms
Physical Exam
-
General: Well Developed, Well Nourished and No Apparent Distress
HEENT: Normocephalic, Atraumatic and Moist Mucous Membranes
Respiratory: Clear to Auscultation; Negative Wheezes, Rales or Rhonchi
Cardiac: Regular Rhythm and S1/S2
GI: Soft, Nontender, Nondistended and Normal Bowel Sounds
Genito-urinary: No Costovertebral Tender and Murphy
Musculoskeletal: No Clubbing, No Cyanosis and No Edema
Skin: Warm and Dry
Neuro: Awake, Alert and Oriented
--- NOTE | 2024-06-14 11:53 | W.PN.ID1 ---
Date of Service
Date of Service: June 14, 2024
Today's Communication
Can transition cefepime (d5) to cipro 250mg po bid through 06/16/24.
Assessment / Plan
# Symptomatic CAUTI
# renal transplant status
# Multiple abx intolerance vs interaction with transplant meds
- Grady changed in ED
- Ucx >100k mixed chago
- Can transition cefepime (d5) to cipro 250mg po bid through 06/16/24.
baseline QTc = 409.
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
- No indication to treat.
# Recent dx of lung adenocarcinoma with mets to T10, T11 and left 4th rib
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
Recent dx of lung adenocarcinoma with mets to T10, T11 and left 4th rib
Renal transplant
CAD
HTN
Rheumatoid arthritis
Spina bifida
Neurogenic bladder with chronic Grady catheter
Recurrent UTI on methenamine
Bilateral nephrectomy
Hx ileal conduit with reversal
Left femur ORIF
Left total knee replacement
Chief Complaint
-: UTI
Subjective / Review of Systems
Feels welll overall.
Vital Signs / Physical Exam
Vital Signs
Vital Signs
Temp Pulse Resp BP Pulse Ox
97.6 F 64 18 110/56 95
06/14/24 07:05 06/14/24 07:05 06/14/24 07:05 06/14/24 07:05 06/14/24 07:05
Physical Exam
Constitutional: No Acute Distress and Comfortable
Cardiovascular: Regular Rate and S1/S2
Pulmonary: Clear
Gastrointestinal: Soft, Non Tender and Non Distended
Genito-Urinary: Grady, Clear Urine and Other (RLQ nontender)
Extremities: Negative Edema
Neurological: AO x 3
Objective Data
Lab Data
Lab Results
06/14/24 05:37
06/14/24 05:37
Estimated Creat Clear 30 ml/min 06/14/24 05:37
Total Bilirubin 0.8 mg/dl (0.2-1.3) 06/10/24 21:52
AST 17 U/L (14-36) 06/10/24 21:52
ALT 12 U/L (0-35) 06/10/24 21:52
Alkaline Phosphatase 66 U/L (38-126) 06/10/24 21:52
Most recent labs reviewed.
Micro Results:
06/10/24 21:52 Urine Culture - Final
Urine
[2024-06-14 13:05] VITALS: BP 127/73
--- NOTE | 2024-06-14 13:23 | CM ---
CM met with patient who lives with her , Nadir, in a 2 story home with 1 entry step. Bed and bathroom on first floor. She is independent in all activities of daily living.
She has chronic Grady and knows self care.
CM Offered VN she declined, stating her is 'her nurse'.
Hx of [facility] and [facility]
Pharm: [facility] in [place]
PCP: Dr Salmon
PLAN: Home no needs
--- NOTE | 2024-06-14 16:28 | W.DS.TRANS ---
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
-
Discharge Instructions:
Discharge Diagnosis/Procedures UTI/Hx of renal transplant
Diet Low Sodium
Activity As tolerated,With Walker
Driving Restrictions No driving
Bathing Restrictions None
Blood Work BMP within the week
Instructions:
Stand-Alone Forms:
Changes to Home Medications: Yes
Discharge Medications:
DC Medications w/original date entered in [employer]
prednisone 10 mg tablet 10 mg PO Q48H Transplant 08/23/12
lisinopril 5 mg tablet 5 mg PO HS Blood pressure 07/07/17
acetaminophen 500 mg tablet (Tylenol Extra Strength) 1,000 mg PO Q6HPRN PRN mild pain/CRESPO/temp>100.4F 01/10/23
bisacodyl 5 mg tablet 10 mg PO Q72H Constipation 01/10/23
cholecalciferol (vitamin D3) 25 mcg (1,000 unit) tablet 25 mcg PO DAILY Supplement 01/10/23
methenamine hippurate 1 gram tablet 1 g PO HS 01/10/23
sennosides 8.6 mg-docusate sodium 50 mg tablet (Colace 2-In-1) 1 tab-cap PO Q72H Constipation 01/10/23
Ocusoft 1 spray BOTH EYES BID 01/08/24
albuterol sulfate 90 mcg/actuation aerosol inhaler 2 puff inhalation QID PRN shortness of breath or wheezing #8.5 grams 04/01/24
triamcinolone acetonide 55 mcg nasal spray aerosol (Nasacort) 1 spray intranasal DAILY #16.9 mL 04/01/24
Vitamin B-12 1,000 units PO DAILY 04/18/24
azathioprine 50 mg tablet (Imuran) 50 mg PO DAILY 04/18/24
ciprofloxacin HCl 250 mg tablet (Cipro) 250 mg PO BID #5 tabs 06/14/24
Home Medication Changes
Cipro for 5 doses
Pending Results: No
== END 2024-06-14 13:45 | disposition home or self-care (01) | DRG 699 ==
LOC: 3 WEST ACU 03:48
PROVIDERS: Nurse Practitioner; ADMITTING PHYSICIAN Internal Medicine; ATTENDING PHYSICIAN Internal Medicine; CONSULT PHYSICIAN Internal Medicine Infectious Disease; EMERGENCY PHYSICIAN Student in an Organized Health Care Education/Training Program; FAMILY PHYSICIAN Internal Medicine
DX: T83.511A Infection and inflammatory reaction due to indwelling urethral catheter, initial encounter (principal); C34.90 Malignant neoplasm of unspecified part of unspecified bronchus or lung; T86.13 Kidney transplant infection; D84.821 Immunodeficiency due to drugs; Z94.0 Kidney transplant status; C79.51 Secondary malignant neoplasm of bone; N39.0 Urinary tract infection, site not specified; N16 Renal tubulo-interstitial disorders in diseases classified elsewhere; Z79.624 Long term (current) use of inhibitors of nucleotide synthesis; Z87.440 Personal history of urinary (tract) infections; N31.9 Neuromuscular dysfunction of bladder, unspecified; N18.31 Chronic kidney disease, stage 3a; I12.9 Hypertensive chronic kidney disease with stage 1 through stage 4 chronic kidney disease, or unspecified chronic kidney disease; M06.9 Rheumatoid arthritis, unspecified; Q05.9 Spina bifida, unspecified; Z87.891 Personal history of nicotine dependence; Z90.5 Acquired absence of kidney; Z79.82 Long term (current) use of aspirin; Z88.1 Allergy status to other antibiotic agents; Z88.0 Allergy status to penicillin; I25.10 Atherosclerotic heart disease of native coronary artery without angina pectoris; M81.0 Age-related osteoporosis without current pathological fracture; Z96.652 Presence of left artificial knee joint
CPT/HCPCS: 51702; 71046; 80048; 80053; 81003; 81015; 85025; 85027; 87086; 93005; 96374; 99285; J7500

== ENCOUNTER → 2024-06-23 16:44 | Outpatient (REF) | payer MEDICARE, BC, SELFPAY ==
[2024-06-23 19:16] LABS: D-Dimer 1.78 ug/mlFEU (0.00-0.50)
== END ==
LOC: RAD 16:44
PROVIDERS: Internal Medicine Hematology & Oncology; ATTENDING PHYSICIAN Nurse Practitioner Adult Health; FAMILY PHYSICIAN Internal Medicine
DX: D47.2 Monoclonal gammopathy (principal); R91.8 Other nonspecific abnormal finding of lung field; C34.12 Malignant neoplasm of upper lobe, left bronchus or lung; C79.51 Secondary malignant neoplasm of bone
CPT/HCPCS: 36415; 71250; 85379

== ENCOUNTER → 2024-06-30 08:42 | Outpatient (REF) | payer MEDICARE, BC, SELFPAY ==
[2024-06-30 10:14] LABS: Blood Urea Nitrogen 30 mg/dl (7-17); Calcium 9.6 mg/dl (8.4-10.2); Carbon Dioxide 23 mmol/L (22-30); Chloride 107 mmol/L (98-107); Glucose 86 mg/dl (70-99); Potassium 4.7 mmol/L (3.5-5.1); Sodium 139 mmol/L (135-145); eGFR 42.35
[2024-06-30 13:05] LABS: Hepatitis B Surface Antigen Negative (Negative)
[2024-06-30 13:10] LABS: HIV Combo Negative (Negative)
[2024-06-30 13:22] LABS: Hepatitis C Antibody Negative (Negative)
== END ==
LOC: REG 08:42
PROVIDERS: ATTENDING PHYSICIAN Internal Medicine
DX: E87.5 Hyperkalemia (principal)
CPT/HCPCS: 36415; 80048; 86803; 87340; 87389

== ENCOUNTER → 2024-08-17 09:01 | Outpatient (REF) | payer MEDICARE, BC, SELFPAY ==
[2024-08-17 10:11] LABS: Hematocrit 35.6 % (37.0-47.0); Hemoglobin 11.6 g/dL (12.0-16.0)
[2024-08-17 11:28] LABS: Albumin 4.4 g/dl (3.5-5.0); Blood Urea Nitrogen 24 mg/dl (7-17); Calcium 10.5 mg/dl (8.4-10.2); Carbon Dioxide 23 mmol/L (22-30); Chloride 108 mmol/L (98-107); Glucose 95 mg/dl (70-99); Potassium 5.5 mmol/L (3.5-5.1); Sodium 139 mmol/L (135-145); eGFR 51.75
[2024-08-17 11:29] LABS: Microalb - Urine Creatinine 22.400 mg/dl
[2024-08-17 11:34] LABS: Microalbumin, Random Urine 4.9 mg/dl (0.6-1.7)
== END ==
LOC: REG 09:01
PROVIDERS: ATTENDING PHYSICIAN Specialist; FAMILY PHYSICIAN Internal Medicine
DX: Z94.0 Kidney transplant status (principal); R80.1 Persistent proteinuria, unspecified; N18.30 Chronic kidney disease, stage 3 unspecified
CPT/HCPCS: 36415; 80069; 82043; 82570; 83970; 84156; 85014; 85018

== ENCOUNTER → 2024-09-19 09:15 | Outpatient (REF) | payer MEDICARE, BC, SELFPAY ==
[2024-09-19 09:49] LABS: Hematocrit 33.3 % (37.0-47.0); Hemoglobin 10.8 g/dL (12.0-16.0); Mean Corp Hgb Conc. 32.4 g/dL (33.0-37.0); Mean Corpuscular Volume 100.3 fL (81.0-99.0); Nucleated Red Blood Cells % 0 %; Platelet Count 305 10^3/uL (130-400); Red Cell Dist. Width 13.7 % (11.5-14.5)
[2024-09-19 10:20] LABS: ALT (SGPT) 10 U/L (0-35); AST (SGOT) 15 U/L (14-36); Albumin 4.1 g/dl (3.5-5.0); Alkaline Phosphatase 71 U/L (38-126); Blood Urea Nitrogen 25 mg/dl (7-17); Calcium 9.1 mg/dl (8.4-10.2); Carbon Dioxide 23 mmol/L (22-30); Chloride 108 mmol/L (98-107); Glucose 94 mg/dl (70-99); Potassium 4.6 mmol/L (3.5-5.1); Sodium 139 mmol/L (135-145); Total Protein 6.8 g/dl (6.3-8.2); eGFR 51.43
== END ==
LOC: REG 09:15
PROVIDERS: ATTENDING PHYSICIAN Specialist; FAMILY PHYSICIAN Internal Medicine
DX: E89.2 Postprocedural hypoparathyroidism (principal); Z94.0 Kidney transplant status
CPT/HCPCS: 36415; 80053; 82330; 83970; 84100; 85025

== ENCOUNTER 2024-09-28 10:13 | Emergency (ER) | payer MEDICARE, BC, SELFPAY ==
[2024-09-28] VITALS (8 sets, daily range): BP systolic 102–146; BP diastolic 59–74; BMI 29.2
--- NOTE | 2024-09-28 12:17 | ED.GENMED ---
History of Present Illness
General
Chief Complaint: Chest Pain
Source: patient
Exam Limitations: none
Time Seen by Provider: 09/28/24 11:44
Nursing documentation reviewed up to this point in time: agreed with
History of Present Illness
History of Present Illness:
The patient is a 79 year-old female with known lung CA who presents to the emergency department for evaluation of left sided chest pain. Patient states that over the past few days she has noticed intermittent pain in her left chest. This pain is
reproducible in nature, no exertional or pleuritic component. She denies any worsening shortness of breath, fever, cough, or hemoptysis. No known inciting trauma.
Patient is not currently undergoing treatment for lung CA however does follow with Dr. Wallace. She did contact her office who recommended ED evaluation to rule out cardiac etiology.
Past History
Past History
ED Past Medical History: CAD, HTN, Renal failure, Other (Osteoma rheumatoid arthritis), Other (Spina bifida) and Other (ESRD s/p renal transplant 1979, Neurogenic bladder, chronic urinary tract infections, pyelonephritis, proteinuria, osteoporosis,
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
ED Past Surgical History: Appendectomy, Bowel resection, Orthopedic (Left knee replacement, Sandeep left femur), Tonsilectomy and Other (Kidney transplant R kidney only)
Social History
Tobacco: Former smoker
Alcohol: Occasional
Drug: None
Personal:
Living: with family
Employment: Not employed
Family History
Family History: Other
Review of Systems
Review of Systems
Allergies reviewed?: Yes
All Other Systems: ROS reviewed and negative except as documented in HPI and ROS
Phy Exam
Physical Exam
Physical Exam:
Vitals: Mildly hypertensive. Otherwise vital signs stable. Afebrile
General: Patient is chronically ill appearing.
Skin: Warm and dry, no rashes or lesions
Head: Normocephalic, atraumatic
Eyes: Sclera nonicteric.
Throat: Protecting airway
Neck: Normal ROM, no cervical spine tenderness, no meningismus
Cardiac: Regular rate and rhythm, no murmurs. Focal area of reproducible tenderness in left upper chest wall. No ecchymosis or rash.
Pulm: Increased respiratory effort. Lungs clear with prolonged expiratory phase.
Abdomen: Abdomen soft and nontender.
Extremities: Mild nonpitting edema of RLE (baseline for pt). b/l lower extremities neurovascularly intact
Neuro: AAOx3. Grossly intact
Psychiatric: Normal affect.
Scores
Heart Score for Chest Pain Patients
STEMI patient?: Not applicable
Course
Orders/Labs/Results
Orders:
Orders
09/28/24 10:18
Electrocardiogram (*1) Urgent
Reason for Study: Chest Pain
EKG- Treatment ONCE
09/28/24 12:44
Complete Blood Count/With Diff Urgent
Comprehensive Metabolic Panel Urgent
D-Dimer Urgent
Troponin I Urgent
09/28/24 13:29
0.9% Sodium Chloride 1000 ml [Nss] 1,000 ml IV BOLUS
09/28/24 13:30
CT Chest PE Study Urgent
Comment: lung CA
Reason For Exam: Left chest wall pain
09/28/24 15:45
Electrocardiogram (*1) Urgent
Reason for Study: Chest Pain
EKG- Treatment ONCE
09/28/24 15:56
Troponin I Urgent
Abnormal Lab Results
09/28/24
12:44
RBC 3.25 L 10^6/uL
(4.20-5.40)
Hgb 10.7 L g/dL
(12.0-16.0)
Hct 32.2 L %
(37.0-47.0)
MCV 99.1 H fL
(81.0-99.0)
MCH 32.9 H pg
(27.0-31.0)
Abs Immat Gran (auto) 0.1 H 10^3/uL
(0-0.05)
Absolute Neuts (auto) 8.4 H 10^3/uL
(1.4-6.5)
Absolute Lymphs (auto) 0.5 L 10^3/uL
(1.2-3.4)
Immature Gran % 1.4 H %
(0-0.5)
Neutrophils % 89.6 H %
(42.2-75.2)
Lymphocytes % 4.8 L %
(20.5-51.1)
D-Dimer 1.43 H ug/mlFEU
(0.00-0.50)
Chloride 108 H mmol/L
(98-107)
BUN 23 H mg/dl
(7-17)
Glucose 101 H mg/dl
(70-99)
09/28/24 12:44
09/28/24 12:44
Vital Signs
Initial and Last Documented VS:
Initial Vital Signs
Temp Pulse Resp BP Pulse Ox
98.0 F 99 18 146/66 93
09/28/24 10:15 09/28/24 10:15 09/28/24 10:15 09/28/24 10:15 09/28/24 10:15
Last Documented Vital Signs
Temp Pulse Resp BP Pulse Ox
98.2 F 81 18 117/64 97
09/28/24 12:00 09/28/24 17:45 09/28/24 17:45 09/28/24 17:00 09/28/24 17:45
MDM/Problems Addressed
Differential Diagnosis Includes:
Not limited to: Metastatic lung CA, bronchitis, pneumonia, chest wall strain, pulmonary embolism, less likely acute coronary syndrome
MDM/Problems Addressed:
79 year-old female with known lung cancer not currently undergoing treatment and new onset left sided chest wall pain. No exertional or pleuritic nature to pain. No infectious symptoms or worsening shortness of breath. Vitals and physical exam as
above.
While symptoms are reproducible in nature, given known malignancy� pulmonary embolism would be on differential. Other possibilities include muscular spasm, pathological fracture, metastatic disease, pneumonia, etc. Lower suspicion for acute coronary
syndrome.
ED plan: labs, troponins, chest x-ray. Will screen with d-dimer.
Update: Labs reviewed. Anemia which stable. No other clinically significant findings on labs. Initial troponin undetectable with nonischemic EKG. D-dimer was elevated to 1.4. Patient does have history of kidney transplant � her kidney function
appears normal today on labs. I did discuss with my attending physician and given elevated d-dimer With new left sided chest pain � will obtain CTA chest to rule out pulmonary embolism. Patient given IV fluids to hydrate prior to contrast.
Update: CTA chest without evidence of central pulmonary embolism however does make note of lung mass in left upper lobe. Serial troponins negative x two with unchanged EKG.
At this point � suspect symptoms related to known lung malignancy. No evidence for acute cardiac/ pulmonary process today. I did discuss with patients oncologist, Dr. Wallace who was agreeable with plan. Will discharge home with return precautions,
outpatient follow up. Patient comfortable with plan.
Chronic conditions affecting care:
Lungs CA, hypertension
Acute Exacerbation and/or Progression of Chronic Illness:
Pain secondary to suspected progression of disease
*Radiology
Radiology exam reviewed: radiology read reviewed
*Pulse Oximetry
SaO2: 95
Patient hypoxic: no
*EKG
Interpreted by ED Provider?: Yes
EKG Intrepretation Date: 09/28/24
Interpretation: normal
Comparison EKG: changes noted
Heart Rate: 92
Rate: normal
Rhythm: sinus and PAC's
[place]: normal axis
Interval: normal QT interval
QRS Pattern: normal QRS
Ischemia: no ischemia
*Wallpaper Printer Interpretation
Rate: normal
Interpretation: normal
Heart Rate: 92
Rhythm: sinus
*Critical Care Note
Total Time (30-74mins, 75-104mins- exclusive of procedures): Not Applicable
Patient Management
Discussion with other providers: Library Acquisitions Technician (Case discussed with oncology)
ED Attending Note
-
Portions of this chart may have been created with voice recognition software.� Occasional wrong word or��sound alike� substitutions may have occurred due to the inherent limitations of voice recognition software.
Discharge Plan
Departure
Patient Disposition: Home (Routine Discharge)
Date of Disposition: 09/28/24
Time of Disposition: 16:58
Patient with high blood pressure during this ER visit?: Yes
Condition: Good
Discharge Problem:
Left-sided chest wall pain, Lung cancer
Instructions: Chest pain, BLOOD PRESSURE
Prescriptions:
No Action
prednisone 10 MG tablet
10 mg PO Q48H
lisinopril 5 MG tablet
5 mg PO HS
sennosides-docusate sodium [Colace 2-In-1] 8.6-50 mg Tablet
1 tab-cap PO Q72H
acetaminophen [Tylenol Extra Strength] 500 mg Tablet
1,000 mg PO Q6HPRN PRN (Reason: mild pain/CRESPO/temp>100.4F)
methenamine hippurate 1 gram Tablet
1 g PO HS
bisacodyl 5 mg Tablet
10 mg PO Q72H
cholecalciferol (vitamin D3) 25 mcg (1,000 unit) Tablet
25 mcg PO DAILY
Ocusoft
1 spray BOTH EYES BID
albuterol sulfate 90 mcg/actuation HFA aerosol inhaler
2 puff inhalation QID PRN (Reason: shortness of breath or wheezing) Qty: 8.5 0RF
triamcinolone acetonide [Nasacort] 55 mcg aerosol,spray
1 spray intranasal DAILY Qty: 16.9 0RF
azathioprine [Imuran] 50 mg Tablet
50 mg PO DAILY
Vitamin B-12
1,000 units PO DAILY
Referrals:
Sanaz Wallace MD [Active, Oncology] - Keep scheduled appt
Denisse Salmon MD [Family Provider, Internal Medicine]
Activity Restrictions/Additional Instructions:
RETURN TO THE EMERGENCY DEPARTMENT ANY PERSISTENT/WORSENING CHEST PAIN, ANY SHORTNESS OF BREATH/DIFFICULTY BREATHING, FEVER OR PRODUCTIVE COUGH, SEVERE BACK PAIN, WORSENING IN CURRENT SYMPTOMS, OR ANY OTHER CONCERNS
- As discussed�your lab work showed no acute abnormalities. Your chest CT scan showed no evidence of a central pulmonary embolism however did note a large mass in the left upper lobe of your lung. I suspect your symptoms are likely related to your
lung cancer. Your cardiac enzymes were negative.
- Please continue to stay well-hydrated. Take medications as prescribed.
- Follow-up with your oncology team for further evaluation/management to ensure that your symptoms are improving.
Monitor your symptoms closely and return to the emergency department with any acute worsening/new symptoms or any other concerns
Interventions
Interventions:
*Risk Screen - Suicide Last Done: 09/28/24 10:15
*General Assessment Last Done: 09/28/24 11:44
*Neglect/Abuse Screening Last Done: 09/28/24 10:15
*ED- Fall Risk Assessment Last Done: 09/28/24 11:44
*Nursing Disposition Last Done: 09/28/24 18:18
ED- Cardiac Assessment Last Done: 09/28/24 11:44
Discharge Date and Time
Discharge Date/Time: 09/28/24 18:05
Print Language: ZIMBABWEAN
[2024-09-28 13:00] LABS: Hematocrit 32.2 % (37.0-47.0); Hemoglobin 10.7 g/dL (12.0-16.0); Mean Corp Hgb Conc. 33.2 g/dL (33.0-37.0); Mean Corpuscular Volume 99.1 fL (81.0-99.0); Nucleated Red Blood Cells % 0 %; Platelet Count 280 10^3/uL (130-400); Red Cell Dist. Width 13.9 % (11.5-14.5)
[2024-09-28 13:20] LABS: ALT (SGPT) 10 U/L (0-35); AST (SGOT) 17 U/L (14-36); Albumin 3.8 g/dl (3.5-5.0); Alkaline Phosphatase 66 U/L (38-126); Blood Urea Nitrogen 23 mg/dl (7-17); Calcium 9.5 mg/dl (8.4-10.2); Carbon Dioxide 23 mmol/L (22-30); Chloride 108 mmol/L (98-107); Estimated Creatinine Clearance 37 ml/min; Glucose 101 mg/dl (70-99); Potassium 4.7 mmol/L (3.5-5.1); Sodium 135 mmol/L (135-145); Total Protein 6.3 g/dl (6.3-8.2); eGFR 57.66
[2024-09-28 13:23] LABS: D-Dimer 1.43 ug/mlFEU (0.00-0.50)
[2024-09-28 13:24] LABS: Troponin I < 0.012 ng/ml
[2024-09-28] MEDS: NSS 1000 IV (13:39)
[2024-09-28 16:28] LABS: Troponin I < 0.012 ng/ml
== END 2024-09-28 18:05 | disposition home or self-care (01) ==
LOC: EMR 10:13
PROVIDERS: Physician Assistant; EMERGENCY PHYSICIAN Emergency Medicine; FAMILY PHYSICIAN Internal Medicine
DX: R07.89 Other chest pain (principal); C34.92 Malignant neoplasm of unspecified part of left bronchus or lung; I25.10 Atherosclerotic heart disease of native coronary artery without angina pectoris; I12.0 Hypertensive chronic kidney disease with stage 5 chronic kidney disease or end stage renal disease; N18.6 End stage renal disease; Z94.0 Kidney transplant status; D64.9 Anemia, unspecified
CPT/HCPCS: 99284; 96360; 71275; 80053; 84484; 85025; 85379; 93005; Q9967

== ENCOUNTER → 2024-10-19 08:13 | Outpatient (REF) | payer MEDICARE, BC, SELFPAY ==
[2024-10-19 10:47] LABS: Hematocrit 35.1 % (37.0-47.0); Hemoglobin 11.5 g/dL (12.0-16.0); Mean Corp Hgb Conc. 32.8 g/dL (33.0-37.0); Mean Corpuscular Volume 100.9 fL (81.0-99.0); Nucleated Red Blood Cells % 0 %; Platelet Count 318 10^3/uL (130-400); Red Cell Dist. Width 14.6 % (11.5-14.5)
[2024-10-19 11:27] LABS: Albumin 4.3 g/dl (3.5-5.0); Blood Urea Nitrogen 30 mg/dl (7-17); Calcium 9.4 mg/dl (8.4-10.2); Carbon Dioxide 24 mmol/L (22-30); Chloride 105 mmol/L (98-107); Glucose 82 mg/dl (70-99); Potassium 4.9 mmol/L (3.5-5.1); Sodium 137 mmol/L (135-145); eGFR 51.43
== END ==
LOC: REG 08:13
PROVIDERS: ATTENDING PHYSICIAN Specialist; FAMILY PHYSICIAN Internal Medicine
DX: R80.1 Persistent proteinuria, unspecified (principal); Z94.0 Kidney transplant status; I10 Essential (primary) hypertension
CPT/HCPCS: 36415; 80069; 82570; 84156; 85025

== ENCOUNTER 2024-11-27 10:35 | Emergency (ER) | payer MEDICARE, BC, SELFPAY ==
[2024-11-27 10:44] VITALS: BP 120/61
--- NOTE | 2024-11-27 11:46 | ED.GENMED ---
History of Present Illness
General
Chief Complaint: Cancer Problem
Source: patient, records and previous hospital records
Exam Limitations: none
Time Seen by Provider: 11/27/24 11:23
Nursing documentation reviewed up to this point in time: agreed with
History of Present Illness
History of Present Illness:
Very pleasant 79-year-old female presents with back pain some shortness of breath diagnosed with lung cancer beginning part of this year
She elected not to undergo chemo or radiation could not take Keytruda due to a prior renal transplant
She has spina bifida as a child, said orthopedic fractures, she is only been using Tylenol for pain
Brought up by hospice she states doctors mention that may be an option she seems to be willing to start today she is aware of the concept through her father who is on hospice
Past History
Past History
ED Past Medical History: CAD, Cancer, HTN, Renal failure, Other (Osteoma rheumatoid arthritis), Other (Spina bifida) and Other (ESRD s/p renal transplant 1978, Neurogenic bladder, chronic urinary tract infections, pyelonephritis, proteinuria,
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
ED Past Surgical History: Appendectomy, Bowel resection, Orthopedic (Left knee replacement, Sandeep left femur), Tonsilectomy and Other (Kidney transplant R kidney only)
Social History
Tobacco: Former smoker
Alcohol: Occasional
Drug: None
Personal:
Living: with family
Employment: Not employed
Family History
Family History: Other
Review of Systems
Review of Systems
All Other Systems: Not applicable
Constitutional: Reports fatigue
Respiratory: Reports cough and trouble breathing
Cardiac: Reports chest pain (Chest wall and back pain)
Musculoskeletal: Reports back pain
Neurological: Reports weakness
Phy Exam
Physical Exam
Physical Exam:
Physical Exam
General: Visibly dyspneic female audible upper respiratory sound
Neck: Midline trachea
Heart: Regular rate
Lungs: Rhonchi on the left diminished breath sounds on the
Neuro: alert and oriented. no focal neurological deficits
Skin: no rash
Psychiatric: cooperative
Extremities: No cyanosis
Course
Orders/Labs/Results
Orders:
Orders
11/27/24 11:41
Case Management Consult ONCE
Case Management Consult: Hospice
Hospice: Evaluation and treat
11/27/24 11:59
Morphine Sulfate [Roxanol Oral Concentrate] 10 mg PO NOW STA
Vital Signs
Initial and Last Documented VS:
Initial Vital Signs
Temp Pulse Resp BP Pulse Ox
97.6 F 103 20 120/61 100
11/27/24 10:44 11/27/24 10:44 11/27/24 10:44 11/27/24 10:44 11/27/24 10:44
Last Documented Vital Signs
Temp Pulse Resp BP Pulse Ox
97.6 F 76 18 128/72 97
11/27/24 10:44 11/27/24 13:02 11/27/24 13:02 11/27/24 13:02 11/27/24 13:02
MDM/Problems Addressed
Differential Diagnosis Includes:
Progressive cancer obstructive pneumonia COPD
MDM/Problems Addressed:
Shortness of breath back pain
Chronic conditions affecting care: COPD and Cancer
Acute Exacerbation and/or Progression of Chronic Illness: COPD and Cancer
*Pulse Oximetry
SaO2: 100
Oxygen Mode of Delivery: Room air
Patient hypoxic: no
*Critical Care Note
Total Time (30-74mins, 75-104mins- exclusive of procedures): Not Applicable
Data Reviewed
Review of Other/Old Records Reveals: Records and Operative Reports
Source: patient and records
Prescriptions/Medications Considered But Not Given:
Nebs
Further Testing Considered But Not Given:
Chest x-ray
Update Note
Update Note:
Update patient visibly dyspneic and in pain only using Tylenol I did review her prior records looks like she had an obstructing lung mass patient tells me she was told it is into her bones, only on Tylenol ordered morphine
Consult placed to case management/hospice, will try to get the patient set up at home
ED Attending Note
-
Portions of this chart may have been created with voice recognition software.� Occasional wrong word or��sound alike� substitutions may have occurred due to the inherent limitations of voice recognition software.
Discharge Plan
Departure
Patient Disposition: Home (Routine Discharge)
Date of Disposition: 11/27/24
Time of Disposition: 11:55
Patient with high blood pressure during this ER visit?: No
Condition: Fair
Discharge Problem:
Lung cancer metastatic to bone
Instructions: Managing pain when you have cancer
Prescriptions:
New
oxycodone 5 mg tablet
5 mg PO Q4H PRN (Reason: Pain) Qty: 20 0RF
No Action
prednisone 10 MG tablet
10 mg PO Q48H
lisinopril 5 MG tablet
5 mg PO HS
sennosides-docusate sodium [Colace 2-In-1] 8.6-50 mg Tablet
1 tab-cap PO Q72H
acetaminophen [Tylenol Extra Strength] 500 mg Tablet
1,000 mg PO Q6HPRN PRN (Reason: mild pain/CRESPO/temp>100.4F)
methenamine hippurate 1 gram Tablet
1 g PO HS
bisacodyl 5 mg Tablet
10 mg PO Q72H
cholecalciferol (vitamin D3) 25 mcg (1,000 unit) Tablet
25 mcg PO DAILY
Ocusoft
1 spray BOTH EYES BID
albuterol sulfate 90 mcg/actuation HFA aerosol inhaler
2 puff inhalation QID PRN (Reason: shortness of breath or wheezing) Qty: 8.5 0RF
triamcinolone acetonide [Nasacort] 55 mcg aerosol,spray
1 spray intranasal DAILY Qty: 16.9 0RF
azathioprine [Imuran] 50 mg Tablet
50 mg PO DAILY
Vitamin B-12
1,000 units PO DAILY
Referrals:
Denisse Salmon MD [Family Provider, Internal Medicine]
Activity Restrictions/Additional Instructions:
Expect a call from [facility] tomorrow
Interventions
Interventions:
*Risk Screen - Suicide Last Done: 11/27/24 10:44
*General Assessment Last Done: 11/27/24 10:44
*Nursing Disposition Last Done: 11/27/24 13:03
Discharge Date and Time
Discharge Date/Time: 11/27/24 14:19
Print Language: KYRGYZ
--- NOTE | 2024-11-27 12:01 | CM ---
Patient seen at bedside with patient also present in ED. Patient stated that she wanted [facility] hospice. CM reviewed with her options. Patient has home O2, wheelchair, walker and cane at home. Patient PCP is now [facility] in [facility], as patient had
used [facility] and they have closed. Patient PCP is Dr. Salmon. CM sent referral to Hospice and they will be calling patient for plan to set up start of care tomorrow at home. CM will continue to follow for discharge planning needs.
Plan; home with hospice ([facility])to follow up tomorrow.
[2024-11-27] MEDS: ROXANOL ORAL CONCENTRATE 10 MG PO (12:26)
--- NOTE | 2024-11-27 12:36 | HOSPNOTE ---
Hospice referral received. Spoke to patient and she is in agreement with hospice services. She will be discharged today and we will see patient tomorrow at 10 am to initiate hospice.
[2024-11-27 13:02] VITALS: BP 128/72
== END 2024-11-27 14:19 | disposition home or self-care (01) ==
LOC: EMR 10:35
PROVIDERS: EMERGENCY PHYSICIAN Emergency Medicine; FAMILY PHYSICIAN Internal Medicine
DX: C34.90 Malignant neoplasm of unspecified part of unspecified bronchus or lung (principal); C79.51 Secondary malignant neoplasm of bone; Q05.9 Spina bifida, unspecified; I25.10 Atherosclerotic heart disease of native coronary artery without angina pectoris; I12.0 Hypertensive chronic kidney disease with stage 5 chronic kidney disease or end stage renal disease; N18.6 End stage renal disease; J44.9 Chronic obstructive pulmonary disease, unspecified; M06.9 Rheumatoid arthritis, unspecified; M81.0 Age-related osteoporosis without current pathological fracture; N31.9 Neuromuscular dysfunction of bladder, unspecified; Z85.118 Personal history of other malignant neoplasm of bronchus and lung; Z87.01 Personal history of pneumonia (recurrent); Z87.440 Personal history of urinary (tract) infections; Z87.891 Personal history of nicotine dependence; Z90.49 Acquired absence of other specified parts of digestive tract; Z94.0 Kidney transplant status; Z96.652 Presence of left artificial knee joint
CPT/HCPCS: 99282

== ENCOUNTER 2025-01-17 07:34 | Inpatient (IN) | payer MEDICARE, BC, SELFPAY ==
[2025-01-16] VITALS (11 sets, daily range): BP systolic 94–170; BP diastolic 57–95
[2025-01-16] MEDS: SUBLIMAZE 25 MCG IV (12:35)
[2025-01-16] MEDS: NSS 1000 IV (12:37)
[2025-01-16 12:50] LABS: Hematocrit 31.3 % (37.0-47.0); Hemoglobin 10.1 g/dL (12.0-16.0); Mean Corp Hgb Conc. 32.3 g/dL (33.0-37.0); Mean Corpuscular Volume 103.3 fL (81.0-99.0); Nucleated Red Blood Cells % 0 %; Platelet Count 307 10^3/uL (130-400); Red Cell Dist. Width 14.2 % (11.5-14.5)
[2025-01-16] MEDS: DILAUDID 0.5 MG IV (13:29)
[2025-01-16 13:59] LABS: ALT (SGPT) 11 U/L (0-35); AST (SGOT) 19 U/L (14-36); Albumin 3.7 g/dl (3.5-5.0); Alkaline Phosphatase 82 U/L (38-126); Blood Urea Nitrogen 27 mg/dl (7-17); Calcium 9.3 mg/dl (8.4-10.2); Carbon Dioxide 24 mmol/L (22-30); Chloride 105 mmol/L (98-107); Glucose 99 mg/dl (70-99); Potassium 4.5 mmol/L (3.5-5.1); Sodium 133 mmol/L (135-145); Total Protein 6.4 g/dl (6.3-8.2); eGFR 51.43
[2025-01-16] MEDS: LIDOCAINE 4% PATCH 1 PATCH TOPICAL (14:29)
--- NOTE | 2025-01-16 14:35 | ED.GENMED ---
History of Present Illness
General
Chief Complaint: Back Pain
Source: patient
Exam Limitations: none
Time Seen by Provider: 01/16/25 11:49
History of Present Illness
History of Present Illness:
See MDM
Past History
Past History
ED Past Medical History: CAD, Cancer, HTN, Renal failure, Other (Osteoma rheumatoid arthritis), Other (Spina bifida) and Other (ESRD s/p renal transplant 1979, Neurogenic bladder, chronic urinary tract infections, pyelonephritis, proteinuria,
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
ED Past Surgical History: Appendectomy, Bowel resection, Orthopedic (Left knee replacement, Sandeep left femur), Tonsilectomy and Other (Kidney transplant R kidney only)
Social History
Tobacco: Former smoker
Alcohol: Occasional
Drug: None
Personal:
Living: with family
Employment: Not employed
Family History
Family History: Other
Phy Exam
Physical Exam
Physical Exam:
See MDM
Course
Orders/Labs/Results
Orders:
Orders
01/16/25 12:14
0.9% Sodium Chloride 1000 ml [Nss] 1,000 ml IV BOLUS
Fentanyl Citrate/Pf [Sublimaze] 25 mcg IV NOW STA
01/16/25 12:15
Ribs, Left 3 View W/PA Chest CR [CR Ribs-left 3 Vw W/pa Chest] Urgent
Comment:
Reason For Exam: left upper back pain, hx lung ca
01/16/25 12:34
Complete Blood Count/With Diff Urgent
01/16/25 13:25
HYDROmorphone [Dilaudid] 0.5 mg IV NOW STA
01/16/25 13:30
Comprehensive Metabolic Panel Urgent
01/16/25 13:45
Lidocaine [Lidocaine 4% Patch] 1 patch TOPICAL ONCE ONE
Apply Lidocaine patch(s) to:: Left upper back
Abnormal Lab Results
01/16/25 01/16/25
12:34 13:30
RBC 3.03 L 10^6/uL
(4.20-5.40)
Hgb 10.1 L g/dL
(12.0-16.0)
Hct 31.3 L %
(37.0-47.0)
MCV 103.3 H fL
(81.0-99.0)
MCH 33.3 H pg
(27.0-31.0)
MCHC 32.3 L g/dL
(33.0-37.0)
Abs Immat Gran (auto) 0.2 H 10^3/uL
(0-0.05)
Absolute Neuts (auto) 8.7 H 10^3/uL
(1.4-6.5)
Absolute Lymphs (auto) 0.6 L 10^3/uL
(1.2-3.4)
Immature Gran % 1.8 H %
(0-0.5)
Neutrophils % 86.2 H %
(42.2-75.2)
Lymphocytes % 5.5 L %
(20.5-51.1)
Sodium 133 L mmol/L
(135-145)
BUN 27 H mg/dl
(7-17)
Creatinine 1.1 H mg/dL
(0.6-1.0)
01/16/25 12:34
01/16/25 13:30
Vital Signs
Initial and Last Documented VS:
Initial Vital Signs
Temp Pulse Resp BP Pulse Ox
98.4 F 94 16 117/62 98
01/16/25 11:23 01/16/25 11:23 01/16/25 11:23 01/16/25 11:23 01/16/25 11:23
Last Documented Vital Signs
Temp Pulse Resp BP Pulse Ox
98.4 F 84 15 100/77 94
01/16/25 11:23 01/16/25 14:00 01/16/25 12:30 01/16/25 14:00 01/16/25 14:00
MDM/Problems Addressed
Differential Diagnosis Includes:
Note:
CHIEF COMPLAINT(S)
Back pain.
HISTORY OF PRESENT ILLNESS
The patient is a 79-year-old female presenting with back pain. She reports having taken oxycodone yesterday for relief. She had stopped taking pain medication for two days prior to yesterday, resuming due to worsening pain. Patient states she has
had this pain in the past but was hesitant to take narcotics due to constipation issues. Patient states this prior pain episode resolved after she had a large bowel movement. She is concerned because she had a recent large bowel movement pain
medicine is still not working. She states she has active lung cancer for which she is not seeking treatment. Patient states she is pending palliative care evaluation
PHYSICAL EXAM
General: Alert, no acute distress. Frail
Skin: Warm, dry.
Head: Normocephalic, atraumatic
Neck: Appears supple, trachea midline.
Eyes, Ears, Nose, Mouth, and Throat: Mildly dry mucous membranes
Cardiovascular: No signs of cyanosis
Back: Tenderness localized to the left upper lower thoracic musculature
Respiratory: Respirations are non-labored.
Abdomen: Non-distended
Musculoskeletal: No deformities
Neurological: No focal neurological deficit observed.
Psychiatric: Cooperative, appropriate mood and affect.
PLAN
- Conduct a localized X-ray to assess the area of concern in the lower back.
- Initiate an intravenous line to administer fluids.
- Start with intravenous fentanyl for pain management, due to its minimal effect on blood pressure.
- Monitor and manage fluid status due to low blood pressure and potential dehydration.
DIFFERENTIAL DIAGNOSIS
The Differential Diagnosis includes, in no particular order and is not limited to:
- Musculoskeletal strain or injury
- Osteoarthritis
- Spinal stenosis
- Vertebral compression fracture
- Pyelonephritis
- Kidney stones
- Metastatic bone disease
- Myofascial pain syndrome
- Disc herniation
- Degenerative disc disease
SUMMARY OF ENCOUNTER
The patient was seen in the emergency department for back pain. She had restarted oxycodone due to increasing discomfort. The decision was made to obtain an X-ray of the back to assess structural causes of pain. Due to concern over blood pressure
levels and hydration status, an IV line was established for fluid administration along with IV fentanyl for pain relief.
MEDICATION RECONCILIATION
- Administered intravenous fentanyl for pain management.
MEDICAL DECISION MAKING
- Number and Complexity of Problems Addressed:
The Differential Diagnosis includes, in no particular order and is not limited to:
- Musculoskeletal strain or injury
- Osteoarthritis
- Spinal stenosis
- Vertebral compression fracture
- Pyelonephritis
- Kidney stones
- Metastatic bone disease
- Myofascial pain syndrome
- Disc herniation
- Degenerative disc disease
- Data:
Category 1: Tests and documents
- An X-ray of the lower back was ordered.
- Risk:
Prescription drug management was indicated for the administration of intravenous fentanyl due to the patients low blood pressure.
DIAGNOSIS
- Low back pain, M54.5
- Other intervertebral disc displacement, lumbar region, M51.26
Disposition:
SUMMARY OF ENCOUNTER
The patient presented to the emergency department with back pain, likely due to metastasis from known cancer, which required immediate pain management. Intravenous hydromorphone was administered to manage her severe discomfort, necessitating
supplemental oxygen following administration. The ED team determined that the patient required further pain control through inpatient treatment and is a suitable candidate for palliative care consultation due to her complex needs.
DISPOSITION
Admit.
ASSESSMENT
The patient is experiencing severe cancer-related back pain, likely due to metastatic disease.
EMERGENCY TREATMENTS ADMINISTERED
Intravenous hydromorphone (Dilaudid) for pain management.
MANAGEMENT OF THE PATIENTS CARE WAS DISCUSSED WITH
The hospitals team and palliative care for possible consultation.
PLAN
Admit the patient for inpatient pain control and ongoing management. Further evaluation and potential palliative care consultations will be considered during her hospital stay to ensure comprehensive management of her symptoms and enhance her
quality of life.
MEDICATION RECONCILIATION
Administered intravenous hydromorphone (Dilaudid).
MEDICAL DECISION MAKING
1. Number and Complexity of Problems Addressed: The patient has a history of cancer with metastasis affecting pain management and overall care.
2. Data:
- Category 1: Consideration of additional testing and imaging for further assessment during admission.
- Category 2 and 3: The management and test interpretation were discussed with the hospital team, and a consultation with palliative care was recommended.
3. Risk: Prescription drug management was indicated due to the patients severe pain and the necessity for opioid administration. The decision to admit was made to ensure continued, appropriate pain management and to address the high-risk nature of
her condition associated with metastatic cancer.
DIAGNOSIS
Neoplasm related pain (G89.3). Metastatic cancer (uncertain site, C79.9).
*Pulse Oximetry
SaO2: 94
Oxygen Mode of Delivery: Room air
Patient hypoxic: yes
*Critical Care Note
Total Time (30-74mins, 75-104mins- exclusive of procedures): Not Applicable
ED Attending Note
-
Portions of this chart may have been created with voice recognition software.� Occasional wrong word or��sound alike� substitutions may have occurred due to the inherent limitations of voice recognition software.
Discharge Plan
Departure
Patient Disposition: Admit
Date of Disposition: 01/16/25
Time of Disposition: 14:37
Admit to: Med/Surg
Presentation/result/management discussed w/ accepting MD/DO: Hospitalist
Discharge Problem:
Cancer related pain
Prescriptions:
No Action
prednisone 10 MG tablet
10 mg PO DAILY
lisinopril 5 MG tablet
5 mg PO HS
sennosides-docusate sodium [Colace 2-In-1] 8.6-50 mg Tablet
1 tab-cap PO Q72H
acetaminophen [Tylenol Extra Strength] 500 mg Tablet
1,000 mg PO Q6HPRN PRN (Reason: mild pain/CRESPO/temp>100.4F)
bisacodyl 5 mg Tablet
10 mg PO Q72H
cholecalciferol (vitamin D3) 25 mcg (1,000 unit) Tablet
25 mcg PO DAILY
azathioprine [Imuran] 50 mg Tablet
50 mg PO DAILY
cyanocobalamin (vitamin B-12) 1,000 mcg Tablet
1,000 mcg PO DAILY Qty: 0
albuterol sulfate 90 mcg/actuation HFA aerosol inhaler
2 puff inhalation R QIDPRN PRN (Reason: shortness of breath or wheezing)
oxycodone 5 mg tablet
5 mg PO Q4HPRN PRN (Reason: severe Pain)
Referrals:
Denisse Salmon MD [Family Provider, Internal Medicine]
Interventions
Interventions:
*Risk Screen - Suicide Last Done: 01/16/25 11:23
*General Assessment Last Done: 01/16/25 11:23
*Neglect/Abuse Screening Last Done: 01/16/25 11:23
*ED COVID-19 Vaccine History Last Done: 01/16/25 14:01
*ED Influenza Vaccine History Last Done: 01/16/25 14:01
ED-Musculoskeletal Assessment Last Done: 01/16/25 14:01
Discharge Date and Time
Print Language: SAMI
--- NOTE | 2025-01-16 15:09 | HPS.HSE ---
Family Physician
-
Family Physician: Denisse Salmon
Chief Complaint
-
Allergies
Allergy/AdvReac Type Severity Reaction Status Date / Time
alendronate sodium (From Allergy constipatio Verified 01/16/25 11:23
Fosamax) n
aspirin (Aspirin) Allergy contraindicated Verified 01/16/25 11:23
with
transplant
meds
azithromycin (From Zithromax) Allergy contraindicated Verified 01/16/25 11:23
with
transplant
meds
aztreonam (From Azactam) Allergy Swelling/RE Verified 01/16/25 11:23
DNESS/FLUSH
ING
doxycycline Allergy Hives Verified 01/16/25 11:23
influenza virus vaccine, Allergy high Verified 01/16/25 11:23
specific (Influenza Virus fever,ache
Vacc,Specific) all over
pt states
doesnt
want it
again
levofloxacin (From Levaquin) Allergy Vomiting Verified 01/16/25 11:23
NSAIDS (Non-Steroidal Allergy contraindicated Verified 01/16/25 11:23
Anti-Inflamma (Nsaids) with
transplant
meds
Penicillins Allergy has Verified 01/16/25 11:23
tolerated
cefepime,
ceftriaxone,
cephalexin
tetracycline (Tetracycline) Allergy contraindicated Verified 01/16/25 11:23
with
transplant
meds
Home Medications
prednisone 10 mg tablet 10 mg PO DAILY 08/23/12
lisinopril 5 mg tablet 5 mg PO HS Blood pressure 07/07/17
acetaminophen 500 mg tablet (Tylenol Extra Strength) 1,000 mg PO Q6HPRN PRN mild pain/CRESPO/temp>100.4F 01/10/23
bisacodyl 5 mg tablet 10 mg PO Q72H Constipation 01/10/23
cholecalciferol (vitamin D3) 25 mcg (1,000 unit) tablet 25 mcg PO DAILY Supplement 01/10/23
sennosides 8.6 mg-docusate sodium 50 mg tablet (Colace 2-In-1) 1 tab-cap PO Q72H Constipation 01/10/23
azathioprine 50 mg tablet (Imuran) 50 mg PO DAILY 04/18/24
cyanocobalamin (vitamin B-12) 1,000 mcg tablet 1,000 mcg PO DAILY ##0 04/18/24
albuterol sulfate 90 mcg/actuation aerosol inhaler 2 puff inhalation R QIDPRN PRN shortness of breath or wheezing 01/16/25
oxycodone 5 mg tablet 5 mg PO Q4HPRN PRN severe Pain 01/16/25
History of Present Illness
79-year-old female past medical history of lung adenocarcinoma with mets to T10, T11, left fourth rib, L4-L5 herniated disc, CAD, reflux nephropathy with end-stage renal disease status post kidney transplant 46 years ago, spina bifida with
congenital neurogenic bladder with chronic Grady catheter, recurrent UTIs, hypertension, rheumatoid arthritis, recurrent squamous cell skin cancer, presenting with pain in her left upper back region over the past few weeks. She was having pain here
previously attributed to known left fourth rib fracture and T10 and T11 metastases for which prednisone every other day that she takes for renal transplant was helping. Prednisone was later increased to every day for pain. Oxycodone was later
started.
Over the past week pain has gotten significantly worse. She denies any injury. She denies any numbness and tingling in her arms.
She has been having constipation secondary to oxycodone. She has a bowel movement every 3 days.
She does get pain radiating down her left lower extremity secondary to sciatica from L4-L5 herniated disc for which she gets steroid injections.
She has chronic shortness of breath which is at baseline.
She has a history of lung cancer and was not treated for this. She is interested in seeing palliative care but has not set up an appointment yet. She has an appointment for orthopedics next week for an epidural injection for her lower back.
She has a chronic Grady catheter which is supposed to be replaced in 2 days.
She is a former smoker. She drinks alcohol occasionally.
Medical History
Past Medical History
Past Medical History: Reports Other (lung adenocarcinoma with mets to T10, T11, left fourth rib, L4-L5 herniated disc, CAD, reflux nephropathy with end-stage renal disease status post kidney transplant 46 years ago, spina bifida with congenital
neurogenic bladder with chronic Grady catheter, recurrent UTIs, hypertension, rheumatoid art)
Past Surgical History: Reports Other (Renal transplant, prior thyroidectomy, tonsillectomy, appendectomy, spinal surgery, multiple Mohs procedures, left femur ORIF, left total knee replacement,)
Social History
Tobacco: Former Smoker
Alcohol: Occasional
Drug: None
Family History
Family History: Not pertinent
Allergies / Home Medications
Allergies reflects when Allergies were last updated in [employer].
Home Medications with original date entered in [employer]
Allergy/Medication List:
Allergies
Allergy/AdvReac Type Severity Reaction Status Date / Time
alendronate sodium (From Allergy constipatio Verified 01/16/25 11:23
Fosamax) n
aspirin (Aspirin) Allergy contraindicated Verified 01/16/25 11:23
with
transplant
meds
azithromycin (From Zithromax) Allergy contraindicated Verified 01/16/25 11:23
with
transplant
meds
aztreonam (From Azactam) Allergy Swelling/RE Verified 01/16/25 11:23
DNESS/FLUSH
ING
doxycycline Allergy Hives Verified 01/16/25 11:23
influenza virus vaccine, Allergy high Verified 01/16/25 11:23
specific (Influenza Virus fever,ache
Vacc,Specific) all over
pt states
doesnt
want it
again
levofloxacin (From Levaquin) Allergy Vomiting Verified 01/16/25 11:23
NSAIDS (Non-Steroidal Allergy contraindicated Verified 01/16/25 11:23
Anti-Inflamma (Nsaids) with
transplant
meds
Penicillins Allergy has Verified 01/16/25 11:23
tolerated
cefepime,
ceftriaxone,
cephalexin
tetracycline (Tetracycline) Allergy contraindicated Verified 01/16/25 11:23
with
transplant
meds
Home Medications
prednisone 10 mg tablet 10 mg PO DAILY 08/23/12
lisinopril 5 mg tablet 5 mg PO HS Blood pressure 07/07/17
acetaminophen 500 mg tablet (Tylenol Extra Strength) 1,000 mg PO Q6HPRN PRN mild pain/CRESPO/temp>100.4F 01/10/23
bisacodyl 5 mg tablet 10 mg PO Q72H Constipation 01/10/23
cholecalciferol (vitamin D3) 25 mcg (1,000 unit) tablet 25 mcg PO DAILY Supplement 01/10/23
sennosides 8.6 mg-docusate sodium 50 mg tablet (Colace 2-In-1) 1 tab-cap PO Q72H Constipation 01/10/23
azathioprine 50 mg tablet (Imuran) 50 mg PO DAILY 04/18/24
cyanocobalamin (vitamin B-12) 1,000 mcg tablet 1,000 mcg PO DAILY ##0 04/18/24
albuterol sulfate 90 mcg/actuation aerosol inhaler 2 puff inhalation R QIDPRN PRN shortness of breath or wheezing 01/16/25
oxycodone 5 mg tablet 5 mg PO Q4HPRN PRN severe Pain 01/16/25
Review of Systems
-
History Source: Patient
A 12 point ROS was completed and negative except as noted: Yes
Constitutional: Reports No Symptoms
EENT: Reports No Symptoms
Respiratory: Reports No Symptoms
Cardiac: Reports No Symptoms
Abdomen/GI: Reports No Symptoms
: Reports No Symptoms
Musculoskeletal: Reports See HPI
Skin: Reports No Symptoms
Neurological: Reports No Symptoms
Endocrine: Reports No Symptoms
Hematologic/Lymphatic: Reports No Symptoms
Psych: Reports No Symptoms
Physical Exam
Vital Signs
Vital Signs
Temp Pulse Resp BP Pulse Ox
98.4 F 84 15 100/77 94
01/16/25 11:23 01/16/25 14:00 01/16/25 12:30 01/16/25 14:00 01/16/25 14:36
Physical Exam
General: Well Developed, Well Nourished and No Apparent Distress
HEENT: NormoCephalic, Moist mucous membranes and Atraumatic
Respiratory: Clear
Cardiac: S1/S2 and Regular Rhythm; No Murmur or Rub
GI: Soft, Non Tender, Non Distended and Normal Bowel Sounds; No Organomegaly
Rectal: Deferred by Provider
Musculoskeletal: No Clubbing, No Cyanosis and No Edema
Skin: No Rash
Neuro: Nonfocal/grossly intact
Laboratory Results
-
01/16/25 12:34
01/16/25 13:30
Laboratory Results
Total Bilirubin 0.6 mg/dl (0.2-1.3) 01/16/25 13:30
AST 19 U/L (14-36) 01/16/25 13:30
ALT 11 U/L (0-35) 01/16/25 13:30
Alkaline Phosphatase 82 U/L (38-126) 01/16/25 13:30
Data Reviewed
-
Lab Data: Labs Reviewed by me
Old Records: Reviewed
Impression/Plan
-
IMPRESSION:
PLAN:
# Back pain secondary to new left eighth rib fracture, known left fourth rib fracture/T10, T11 metastases
-X-ray of ribs show fracture of the left fourth rib appears stable from prior CT scan
-There is opacity in the left hilar region extending into the left upper lobe which is increased compared to chest radiograph from 06/11 likely due to left hilar mass and postobstructive atelectasis
- Lidocaine patch, fentanyl patch, Dilaudid for pain in place of oxycodone
- Palliative care consulted
# Chronic sciatica secondary to known L4-L5 disc herniation
- Has appointment with orthopedics coming up
# Acute hypoxemia secondary to narcotics/postobstructive atelectasis from lung mass
- Requiring 2 L oxygen
# Opioid-induced constipation
- Continue Colace 2 in 1, Dulcolax
Lung adenocarcinoma with metastasis to T10, T11, left fourth rib
- Not on treatment
CAD
Reflux nephropathy with end-stage renal disease status post kidney transplant 46 years ago on immunosuppression
- Continue azathioprine, prednisone
Spina bifida with congenital neurogenic bladder with chronic Grady catheter
- Supposed to have Grady catheter exchanged in 2 days, can do this while admitted here
History of recurrent UTIs
Essential hypertension
- Continue lisinopril
Rheumatoid arthritis
Recurrent squamous cell skin cancer
DNR/DNI
DVT prophylaxis�heparin
Regular diet
--- NOTE | 2025-01-16 15:47 | CM ---
Chart reviewed. Spoke with patient at ED bedside
JESUS reviewed with patient
Lives at home with [facility] [address]
s/p renal tx in 1978 and neurogenic bladder with chronic murphy
Independent with ADLs and ambulation
DME [facility], home O2
PCP Dr. Denisse Salmon
RX plan yes
Pharmacy [facility] on [address]
hx of [facility] and no hx of SNF
DCP go home with possible VN
can drive her home
CM will continue to follow up for any dcp needs
--- NOTE | 2025-01-16 18:27 | PTCARENOTE ---
Rn merchandise flow team leader- Patient's assessment completed remotely on the phone. Patient is a moderate fall risk. Called and passed this information to Heidy patient's nurse.
--- NOTE | 2025-01-16 20:51 | PTCARENOTE ---
Pt. wants to brush teeth in the morning.
[2025-01-16] MEDS: DULCOLAX 10 MG PO (22:02)
[2025-01-16] MEDS: DURAGESIC 25 MCG/HR PATCH 1 PATCH TRANSDERM (22:03)
[2025-01-16] MEDS: REMOVE LIDOCAINE PATCH 1 PATCH REMOVE (22:04)
[2025-01-16] MEDS: HEPARIN 5000 UNITS SC (22:04)
[2025-01-16] MEDS: SENOKOT-S 1 TABLET PO (22:05)
[2025-01-16] MEDS: ZESTRIL 5 MG PO (22:05)
[2025-01-16] MEDS: TYLENOL 1000 MG PO (22:09)
[2025-01-16] MEDS: ANESTHETIC LOZENGE 1 LOZENGE PO (22:10)
[2025-01-17 06:24] LABS: Hematocrit 28.5 % (37.0-47.0); Hemoglobin 9.1 g/dL (12.0-16.0); Mean Corp Hgb Conc. 31.9 g/dL (33.0-37.0); Mean Corpuscular Volume 102.5 fL (81.0-99.0); Nucleated Red Blood Cells % 0 %; Platelet Count 280 10^3/uL (130-400); Red Cell Dist. Width 14.0 % (11.5-14.5)
[2025-01-17 06:48] LABS: ALT (SGPT) < 10 U/L (0-35); AST (SGOT) 16 U/L (14-36); Albumin 3.2 g/dl (3.5-5.0); Alkaline Phosphatase 71 U/L (38-126); Blood Urea Nitrogen 24 mg/dl (7-17); Calcium 9.1 mg/dl (8.4-10.2); Carbon Dioxide 25 mmol/L (22-30); Chloride 104 mmol/L (98-107); Glucose 78 mg/dl (70-99); Potassium 4.9 mmol/L (3.5-5.1); Sodium 132 mmol/L (135-145); Total Protein 5.6 g/dl (6.3-8.2); eGFR 51.43
[2025-01-17 07:30] VITALS: BP 96/52
[2025-01-17] MEDS: VITAMIN B-12 1000 MCG PO (09:30)
[2025-01-17] MEDS: VITAMIN D3 (cholecalciferol) 25 MCG PO (09:30)
[2025-01-17] MEDS: HEPARIN 5000 UNITS SC ×2 (09:31→21:59)
[2025-01-17] MEDS: LIDOCAINE 4% PATCH 1 PATCH TOPICAL (09:31)
[2025-01-17] MEDS: IMURAN 50 MG PO (09:31)
[2025-01-17] MEDS: DELTASONE 10 MG PO (09:31)
[2025-01-17] MEDS: TYLENOL 1000 MG PO ×2 (09:37→22:09)
--- NOTE | 2025-01-17 13:47 | W.PN.HOSP.TC ---
Today's Communication/Plan
-
Assessment / Plan
Assessment / Plan
NAD
Scleral Anicteric
MMM
No JVD
CTABL
RRR, S1/S2
Soft, NT, ND, BS+
Warm, Dry
AAOx3
Calm
Back pain secondary to new left eighth rib fracture, known left fourth rib fracture/T10, T11 metastases
-X-ray of ribs show fracture of the left fourth rib appears stable from prior CT scan
-There is opacity in the left hilar region extending into the left upper lobe which is increased compared to chest radiograph from 06/11 likely due to left hilar mass and postobstructive atelectasis
- Lidocaine patch, fentanyl patch, Dilaudid for pain in place of oxycodone
- Palliative care consulted
- hospice consult
Chronic sciatica secondary to known L4-L5 disc herniation
- Has appointment with orthopedics coming up
Acute hypoxemia secondary to narcotics/postobstructive atelectasis from lung mass
- Requiring 2 L oxygen
Opioid-induced constipation
- Continue Colace 2 in 1, Dulcolax
Lung adenocarcinoma with metastasis to T10, T11, left fourth rib
- Not on treatment
Reflux nephropathy with end-stage renal disease status post kidney transplant 46 years ago on immunosuppression
- Continue azathioprine, prednisone
Spina bifida with congenital neurogenic bladder with chronic Grady catheter
- Supposed to have Grady catheter exchanged in 2 days, can do this while admitted here
Essential hypertension
- Continue lisinopril
DNR/DNI
DVT prophylaxis�heparin
Anticipated Discharge: 24 - 48 hours
Subjective/Interval History
-
Date of Service: January 17, 2025
seen and examined. no new complaints. no acute ovenrighr events
Objective Data
-
Labs:
Laboratory Results
01/17/25
06:08
WBC 8.4
Hgb 9.1 L
Hct 28.5 L
Plt Count 280
Sodium 132 L
Potassium 4.9
Chloride 104
Carbon Dioxide 25
BUN 24 H
Creatinine 1.1 H
Glucose 78
Calcium 9.1
Total Bilirubin 0.5
AST 16
ALT < 10
Alkaline Phosphatase 71
Vital Signs:
Vital Signs
Temp Pulse Resp BP Pulse Ox
97.5 F 81 16 96/52 92
01/17/25 07:30 01/17/25 07:30 01/17/25 07:30 01/17/25 07:30 01/17/25 07:30
I&O
01/16/25 01/17/25 01/18/25
06:59 06:59 06:59
Intake Total 480 / 480
Output Total 1280 / 1280
Balance -800 / -800
[2025-01-17 15:45] VITALS: BP 148/69
--- NOTE | 2025-01-17 17:01 | CM ---
BETO met with Joycelyn at bedside and spoke with her earlier. Both would prefer Joycelyn to be home with hospice care. Referral sent to [facility] which Joycelyn is very fond of (in addition to the entire hospital) and tells me she is a frequent
contributor.
BETO confirmed with Haydee that Hospice should be able to start care tomorrow. Dr. Fischer updated.
--- NOTE | 2025-01-17 17:23 | HOSPNOTE ---
Spoke with spouse and discussed hospice and the philosophy. The spouse will drive the patient home and will bring an oxygen tank with him for the ride. The spouse would like to leave around 1pm. Once the patient is home we will admit onto our
service. CM and Attending updated.
[2025-01-17 21:55] VITALS: BP 131/81
[2025-01-17] MEDS: REMOVE LIDOCAINE PATCH 1 PATCH REMOVE (22:00)
[2025-01-17] MEDS: HIPREX 1 GRAM PO (22:01)
[2025-01-17] MEDS: ZESTRIL 5 MG PO (22:01)
[2025-01-17] MEDS: ANESTHETIC LOZENGE 1 LOZENGE PO (22:10)
[2025-01-17 23:00] VITALS: BP 130/64
[2025-01-18 07:02] VITALS: BP 114/54
[2025-01-18] MEDS: IMURAN 50 MG PO (07:46)
[2025-01-18] MEDS: VITAMIN B-12 1000 MCG PO (07:46)
[2025-01-18] MEDS: HEPARIN 5000 UNITS SC (07:46)
[2025-01-18] MEDS: VITAMIN D3 (cholecalciferol) 25 MCG PO (07:46)
[2025-01-18] MEDS: LIDOCAINE 4% PATCH 1 PATCH TOPICAL (07:46)
[2025-01-18] MEDS: DELTASONE 10 MG PO (07:47)
--- NOTE | 2025-01-18 10:38 | CM ---
Pt is going on hospice care at home today with Hosp[facility]. Pt's is going to drive her home, and will bring an oxygen tank with him.
Plan: Discharge to home with Hospice.
[2025-01-18 12:59] VITALS: BP 159/75
--- NOTE | 2025-02-02 15:04 | W.DCSUMMARY ---
Discharge Summary
Discharge Data
Date of Admission: 01/16/25
Date of Discharge: 01/18/25
-
Pending Results: No
Hospital Course
79-year-old female past medical history of lung adenocarcinoma with mets to T10, T11, left fourth rib, L4-L5 herniated disc, CAD, reflux nephropathy with end-stage renal disease status post kidney transplant 46 years ago, spina bifida with
congenital neurogenic bladder with chronic Grady catheter, recurrent UTIs, hypertension, rheumatoid arthritis, recurrent squamous cell skin cancer, presenting with pain in her left upper back region over the past few weeks.
Presented with cancer related pain for a untreated end-stage lung adenocarcinoma with metastatic disease. Was started on analgesics with the fentanyl patch and lidoderma patch with improvement. Was open to discussing case with hospice therefore
they were consulted. However, at this time not intrested in hospice.
ribs cxr
IMPRESSION: Fracture of the left fourth rib appears stable from CT of September 28, 2024.
Subtle fracture of the left eighth rib, which appears new from CT scan of September 2024, suggesting acute to subacute fracture.
No evidence for pneumothorax or hemothorax.
Opacity in the left hilar region and extending into the left upper lobe, which has increased compared to chest radiograph of June 11, 2024. This is likely due to left hilar mass and postobstructive atelectasis.
Was seen and examined on the day of discharge [facility] was 01/18. no new compalints. no acute ovenirhgt events
pain controlled
NAD
Scleral Anicteric
MMM
No JVD
CTABL
RRR, S1/S2
Soft, NT, ND, BS+
Warm, Dry
AAOx3
Calm
Discharge Plan
-
Patient Disposition: Home with Hospice
Discharge Diagnosis/Procedures: Lung adeno
Cancer related pain
Condition: Good
Diet: As tolerated
Activity: As tolerated
Activity Restrictions/Additional Instructions:
Presented with cancer related pain for a untreated end-stage lung adenocarcinoma with metastatic disease. Was started on analgesics with the fentanyl patch and lidoderma patch with improvement. Was open to discussing case with hospice therefore
they were consulted. However, at this time not intrested in hospice.
ribs cxr
IMPRESSION: Fracture of the left fourth rib appears stable from CT of September 28, 2024.
Subtle fracture of the left eighth rib, which appears new from CT scan of September 2024, suggesting acute to subacute fracture.
No evidence for pneumothorax or hemothorax.
Opacity in the left hilar region and extending into the left upper lobe, which has increased compared to chest radiograph of June 11, 2024. This is likely due to left hilar mass and postobstructive atelectasis.
Referrals:
Denisse Salmon MD [Family Provider, Internal Medicine]
Prescriptions:
New
fentanyl 25 mcg/hr Patch 72 Hour
1 patch transdermal Q72H Qty: 2 0RF
Chloraseptic Sore Throat 6-10 mg Lozenge
1 anand PO Q4HPRN PRN (Reason: sore/dry throat) Qty: 5 0RF
lidocaine 4 % Adhesive Patch,Medicated
1 patch topical DAILY Qty: 5 0RF
Continued
prednisone 10 MG tablet
10 mg PO DAILY
lisinopril 5 MG tablet
5 mg PO HS
sennosides-docusate sodium [Colace 2-In-1] 8.6-50 mg Tablet
1 tab-cap PO Q72H
acetaminophen [Tylenol Extra Strength] 500 mg Tablet
1,000 mg PO Q6HPRN PRN (Reason: mild pain/CRESPO/temp>100.4F)
bisacodyl 5 mg Tablet
10 mg PO Q72H
cholecalciferol (vitamin D3) 25 mcg (1,000 unit) Tablet
25 mcg PO DAILY
azathioprine [Imuran] 50 mg Tablet
50 mg PO DAILY
cyanocobalamin (vitamin B-12) 1,000 mcg Tablet
1,000 mcg PO DAILY Qty: 0
albuterol sulfate 90 mcg/actuation HFA aerosol inhaler
2 puff inhalation R QIDPRN PRN (Reason: shortness of breath or wheezing)
oxycodone 5 mg tablet
5 mg PO Q4HPRN PRN (Reason: severe Pain)
methenamine hippurate 1 gram tablet
1 g PO HS
Discharge Orders:
Discharge Patient (As Directed); Ordered 01/18/25
Ordered By: Evangelista Fischer
Discharge Date and Time
Discharge Date/Time: 01/18/25 14:05
Print Language: PORTUGUESE
== END 2025-01-18 14:05 | disposition hospice, home (50) | DRG 948 ==
LOC: 3 WEST ACU 07:34
PROVIDERS: ADMITTING PHYSICIAN Hospitalist; ATTENDING PHYSICIAN Hospitalist; EMERGENCY PHYSICIAN Student in an Organized Health Care Education/Training Program; FAMILY PHYSICIAN Internal Medicine
DX: G89.3 Neoplasm related pain (acute) (chronic) (principal); S22.32XA Fracture of one rib, left side, initial encounter for closed fracture; J98.11 Atelectasis; C34.90 Malignant neoplasm of unspecified part of unspecified bronchus or lung; D84.821 Immunodeficiency due to drugs; Z87.891 Personal history of nicotine dependence; Z51.5 Encounter for palliative care; T40.2X5A Adverse effect of other opioids, initial encounter; K59.03 Drug induced constipation; Z66 Do not resuscitate; M06.9 Rheumatoid arthritis, unspecified; Q05.9 Spina bifida, unspecified; Z79.60 Long term (current) use of unspecified immunomodulators and immunosuppressants; Z79.899 Other long term (current) drug therapy
CPT/HCPCS: 71101; 80053; 85025; 96361; 96374; 96375; 99285; J7500